=== PATIENT | female | born 1960 | race Caucasian/White ===

== ENCOUNTER 2020-04-11 07:45 | Outpatient (CLI) | payer OTHER, SELFPAY ==
[2020-04-11 08:00] LABS: Hematocrit 42.1 % (35.0-49.0); Hemoglobin 14.5 g/dL (12.0-15.0); Mean Corpuscular HGB Conc 34.4 g/dL (32.0-36.0); Mean Corpuscular Hemoglobin 33.7 pg (27.0-31.0); Mean Corpuscular Volume 97.9 fL (78.0-102.0); Mean Platelet Volume 9.5 fl (9.2-11.8); Platelet Count Result 206 K/mm3 (150-420); Red Cell Distribution Width 11.9 % (11.6-14.4); White Blood Count 7.3 K/mm3 (4.8-10.8)
[2020-04-11 08:18] LABS: Hemoglobin A1C 5.4 % (<5.7)
[2020-04-11 09:10] LABS: Alanine Aminotransferase 42 U/L (14-59); Albumin Level 4.2 g/dL (3.4-5.0); Alkaline Phosphatase 76 U/L (46-116); Anion Gap 10 mmol/L (8-16); Aspartate Amino Transferase 26 U/L (15-37); Bilirubin,Total 0.4 mg/dL (0.00-1.00); Blood Urea Nitrogen 9 mg/dL (7-18); Calcium 9.3 mg/dL (8.5-10.1); Carbon Dioxide 27 mmol/L (21-32); Chloride 97 mmol/L (98-108); Cholesterol 208 mg/dL (0-200); Estimated Glomerular Filt Rate > 60; Free T4 Free Thyroxine 0.89 ng/dL (0.76-1.46); Glucose 109 mg/dL (70-99); HDL Direct 53 mg/dL (40-60); LDL Cholesterol Calculated 130 mg/dL (<130); Osmolality Calculated 277 mOsm/kg (285-295); Potassium 4.7 mmol/L (3.5-5.1); Sodium 134 mmol/L (136-145); Thyroid Stimulating Hormone 9.49 uIU/mL (0.36-3.74); Total Protein 7.7 g/dL (6.4-8.2); Triglycerides 124 mg/dL (0-150)
== END 2020-04-11 07:46 | disposition home or self-care (01) ==
PROVIDERS: PCP Physician Assistant; Visit Provider Physician Assistant
DX: E78.2 Mixed hyperlipidemia (principal)
CPT/HCPCS: 36415; 80053; 80061; 83036; 84439; 84443; 85027

== ENCOUNTER 2020-05-08 09:59 | Outpatient (CLI) | payer OTHER, SELFPAY | END 2020-05-08 10:00 | disposition home or self-care (01) | PROVIDERS: PCP Physician Assistant; Visit Provider Specialist | DX: L81.4 Other melanin hyperpigmentation (principal) | CPT/HCPCS: 88305 ==

== ENCOUNTER 2021-05-07 09:32 | Outpatient (CLI) | payer OTHER, SELFPAY | END 2021-05-07 09:33 | disposition home or self-care (01) | LOC: CHSOUTPT 09:36 | PROVIDERS: PCP Physician Assistant; Visit Provider Specialist | DX: L57.0 Actinic keratosis (principal) | CPT/HCPCS: 88305 ==

== ENCOUNTER 2024-09-01 11:42 | Emergency (ER) | payer OTHER, SELFPAY ==
--- NOTE | ~2024-09-01 | XR_ITS ---
EXAMINATION: XR chest 1V portable DATE: 09/01/2024 12:19 INDICATION: Cough and congestion. TECHNIQUE: A single frontal view of the chest was obtained. COMPARISON: None. FINDINGS: There is no pneumonia, pleural effusion, or pneumothorax. The heart size is normal. IMPRESSION: 1. No acute cardiopulmonary disease. Reviewed, dictated and finalized at location B.
[2024-09-01 11:44] VITALS: BP 160/87; PULSE 93; RESP 18; TEMP 35.7; O2SAT 96
[2024-09-01 11:45] VITALS: O2SAT 99
--- NOTE | 2024-09-01 11:52 | PC.NURSE ---
covid swab sent to lab
[2024-09-01 12:14] LABS: Basophils Absolute Auto 0.03 K/mm3 (0.00-0.10); Basophils Percent Auto 0.5 % (0.0-1.0); Eosinophils Absolute Auto 0.08 K/mm3 (0.02-0.50); Eosinophils Percent Auto 1.4 % (1.0-6.0); Hematocrit 39.6 % (35.0-49.0); Hemoglobin 13.6 g/dL (12.0-15.0); Immature Granulocyte Absolute 0.02 K/mm3 (0.00-0.00); Immature Granulocyte Percent A 0.4 % (0.0-0.0); Immature Platelet Fraction Pct 2.3 % (1.0-7.0); Lymphocytes Absolute Auto 0.89 K/mm3 (1.10-4.50); Lymphocytes Percent Auto 16.1 % (18.0-42.0); Mean Corpuscular HGB Conc 34.3 g/dL (32-36); Mean Corpuscular Hemoglobin 33.3 pg (27.0-31.0); Mean Corpuscular Volume 96.8 fL (78.0-102.0); Mean Platelet Volume 9.2 fl (9.2-11.8); Monocytes Absolute Auto 0.74 K/mm3 (0.10-0.90); Monocytes Percent Auto 13.4 % (2.0-11.0); Neutrophils Absolute Auto 3.78 K/mm3 (1.70-7.20); Neutrophils Percent Auto 68.2 % (50.0-70.0); Platelet Count Result 148 K/mm3 (150-420); Red Blood Count 4.09 M/mm3 (4.20-5.40); Red Cell Distribution Width 12.7 % (11.6-14.4); White Blood Count 5.5 K/mm3 (4.8-10.8)
[2024-09-01 12:17] LABS: Strep Group A RT-PCR DETECTED (Negative)
[2024-09-01 12:23] VITALS: PULSE 83; RESP 16; O2SAT 93
[2024-09-01] MEDS: IPRATROPIUM 0.5 MG/ALBUTEROL SULFATE 2.5 MG AMPUL.NEB 3 ML INHALATION (12:23)
--- NOTE | 2024-09-01 12:26 | ED_ITS ---
HPI - URI/Sore Throat General Chief Complaint: Upper Respiratory Infection Stated Complaint: sore throat Time Seen by Provider: 09/01/24 11:43 Source: patient Mode of arrival: ambulatory Limitations: no limitations History of Present Illness HPI Narrative: this is a 64-year-old female presents with sore throat with nasal congestion coarse breath sounds with no shortness of breath no audible wheezing no fever chills no chest pain no abdominal pain no nausea vomiting. MD elicited complaint: cough, sore throat, rhinorrhea and nasal congestion Onset (ago): day(s) Consistency: constant Severity: mild Related Data Allergies Allergy/AdvReac Type Severity Reaction Status Date / Time No Known Allergies Allergy Verified 09/01/24 12:28 Review of Systems 2 Review of Systems: All systems reviewed & are unremarkable except as noted in HPI and below PMFSH Past Medical History Medical History Patient denies medical problems Exam 2 Const: General: healthy appearing Nutritional Appearance: well nourished Orientation/consciousness: patient oriented x3 Limitations: no limitations HENMT: Head: normal to inspection Other: tonsils erythematous and enlarged Eyes: Conjunctivae: conjunctivae normal Neck: Neck: normal visual inspection Chest: Chest palpation & inspection: normal inspection of the chest Resp: Effort & Inspection: normal respiratory effort Auscultation: rhonchi Cardio: Rate: regular rate Rhythm: regular rhythm GI: GI Palp: Yes Soft to palpation Auscultation: normal bowel sounds : General: Yes bladder normal to palpation Skin: General skin exam: normal color Course Course Emergency Course: patient had a breathing treatment had COVID RSV influenza which were negative, positive for strep and will send antibiotics the patient's local pharmacy blood work was unremarkable chest x-ray unremarkable. Vital Signs Vital signs: Vital Signs Temperature 35.7 C L 09/01/24 11:44 Pulse Rate 93 09/01/24 11:44 Respiratory Rate 18 09/01/24 11:44 Blood Pressure 160/87 H 09/01/24 11:44 Pulse Oximetry 96 09/01/24 11:44 Oxygen Delivery Room Air 09/01/24 11:44 Temperature 35.7 C L 09/01/24 11:44 Pulse Rate 93 09/01/24 11:44 Respiratory Rate 18 09/01/24 11:44 Blood Pressure 160/87 H 09/01/24 11:44 Pulse Oximetry 96 09/01/24 11:44 Oxygen Delivery Room Air 09/01/24 11:44 MDM - URI/Sore Throat Lab Data 09/01/24 12:08 09/01/24 12:08 Labs: Lab Results 09/01/24 09/01/24 Range/Units 11:50 12:08 WBC 5.5 (4.8-10.8) K/mm3 RBC 4.09 L (4.20-5.40) M/mm3 Hgb 13.6 (12.0-15.0) g/dL Hct 39.6 (35.0-49.0) % MCV 96.8 (78.0-102.0) fL MCH 33.3 H (27.0-31.0) pg MCHC 34.3 (32-36) g/dL RDW 12.7 (11.6-14.4) % Plt Count 148 L (150-420) K/mm3 MPV 9.2 (9.2-11.8) fl Immature Gran % (Auto) 0.4 H (0.0-0.0) % Neut % (Auto) 68.2 (50.0-70.0) % Lymph % (Auto) 16.1 L (18.0-42.0) % Hettinger % (Auto) 13.4 H (2.0-11.0) % Eos % (Auto) 1.4 (1.0-6.0) % Baso % (Auto) 0.5 (0.0-1.0) % Lymph # (Auto) 0.89 L (1.10-4.50) K/mm3 Hettinger # (Auto) 0.74 (0.10-0.90) K/mm3 Eos # (Auto) 0.08 (0.02-0.50) K/mm3 Baso # (Auto) 0.03 (0.00-0.10) K/mm3 Abs Immat Gran (auto) 0.02 H (0.00-0.00) K/mm3 Absolute Neuts (auto) 3.78 (1.70-7.20) K/mm3 Absolute Nucleated RBC 0.00 (0.00-0.00) K/mm3 Nucleated RBC % 0.0 (0-0.0) % % Immature Plt Fraction 2.3 (1.0-7.0) % Sodium Pending Potassium Pending Chloride Pending Carbon Dioxide Pending Anion Gap Pending BUN Pending Creatinine Pending Estim Creat Clear Calc Pending Estimated GFR Pending Glucose Pending Calculated Osmolality Pending Calcium Pending Total Bilirubin Pending AST Pending ALT Pending Alkaline Phosphatase Pending Total Protein Pending Albumin Pending Influenza A (RT-PCR) Pending Influenza B (RT-PCR) Pending RSV (RT-PCR) Pending SARS-CoV-2 RNA (RT-PCR) Pending Group A Strep (PCR) Detected A (Negative) Critical Care Time Critical Care Time Critical Care Time: No Discharge Plan Discharge Clinical Impression: Strep throat Patient Disposition: Home, Self-Care Condition: Stable Instructions: Antibiotic Form, Strep Throat (ED) Additional Instructions: advised patient to take medication as prescribed can take Tylenol or Motrin as needed and follow with family if symptoms persist or worsen. Patient Language: [place] Islander Prescriptions: New amoxicillin-pot clavulanate [Augmentin] 500-125 mg tablet 1 tablet PO TID Qty: 30 0RF Follow-up/Referrals: Randy,JUAN Smart [Primary Care Provider] - Time of Disposition: 12:31
[2024-09-01 12:27] VITALS: PULSE 86; RESP 16; O2SAT 95
[2024-09-01 12:28] LABS: Alanine Aminotransferase 24 U/L (14-59); Albumin Level 3.7 g/dL (3.4-5.0); Alkaline Phosphatase 61 U/L (46-116); Anion Gap 6 mmol/L (4-12); Aspartate Amino Transferase 25 U/L (15-37); Bilirubin,Total 0.5 mg/dL (0.00-1.00); Blood Urea Nitrogen 7 mg/dL (7-18); Calcium 9.2 mg/dL (8.5-10.1); Carbon Dioxide 29 mmol/L (21-32); Chloride 98 mmol/L (98-108); Estimated CRCL calculation 89 ml/min; Estimated Glomerular Filt Rate > 60; Glucose 151 mg/dL (70-99); Osmolality Calculated 277 mOsm/kg (285-295); Potassium 4.5 mmol/L (3.5-5.1); Sodium 133 mmol/L (136-145); Total Protein 7.8 g/dL (6.4-8.2)
[2024-09-01 12:30] LABS: Influenza A QL RT-PCR Positive (Negative); Influenza B QL RT-PCR Negative (Negative); RSV RNA, RT-PCR Negative (Negative); SARS-CoV-2 RNA PCR Negative (Negative)
--- OUTSIDE RECORDS SUMMARY | 2024-09-01 13:32 | XMS_ITS | Encounter Summary ---
Author Organization [facility] Address [address] [place] [address] Phone Care Team Providers Care Environmental Health Manager Name Role Phone Shravan Padilla Primary Care Provider Heidy Brandon MD Unavailable [phone] Reason for Visit * Reason Comments Medication Refill Encounter Details Date Type Department Care Team (Late st Contact Info) Description 01/31/2022 Refill [facility] - Gastroenterology [facility] [address] [place] [address] Alyssa Ulloa [facility] [address] [place] [address] Medication Refill Social History Tobacco Use Types Packs/Day Years Used Date Smoking Tobacco: Former Smokeless Tobacco: Never Alcohol Use Standard Drinks/Week Comments Yes 0 (1 standard drink = 0.6 oz pur e alcohol) daily for the past year; Beer Sexually Active Control Partners Comments Not Currently Comments No Sex and Gender Information Value Date Recorded Sex Assigned at Not on file Legal Sex Female 12:04 AM CDT Gender Identity Not on file Sexual Orientation Not on file documented as of this encounter Miscellaneous Notes * Telephone Encounter - Emily Koo RN - 02/03/2022 10:34 AM CDT Medication refilled and signed per [facility] chronic medication standing order for pediatric and adult patients. documented in this encounter Plan of Treatment Not on file documented as of this encounter Visit Diagnoses Not on filedocumented in this encounter Additional Health Concerns Infection Onset Date Last Indicated Resolved Time COVID - 19 02/19/2024 02/19/2024 02/19/2024 11:4 2 AM CDT documented as of this encounter Care Teams Environmental Health Manager Relationship Specialty Start Date End Date Shravan Padilla PAC [address] [place] [address] PCP - General Physician Banquet Line Cook 10/30/17 Heidy Brandon MD [address] [place] [address] Consulting Physician Gastroenterology 05/22/22 documented as of this encounter
--- OUTSIDE RECORDS SUMMARY | 2024-09-01 13:33 | XMS_ITS | Encounter Summary ---
Author Organization [facility] Address [address] [place] [address] Phone Care Team Providers Care Cut And Cover Line Worker Name Role Phone Shravan Padilla Primary Care Provider [phone] Heidy Brandon MD Unavailable [phone] Reason for Referral * Radiology Services (Routine) - Closed Specialty Diagnoses / Procedures Referred By Rea t Referred To Contact Radiology Diagnoses Encounter for screening mammogram for breast cancer Procedures ROBERT SCREENING BILATERAL DIGITAL W CAD W RADHA Shravan Padilla PAC [address] [place] [address] Phone: tel: fax: Referral ID Status Reason Start Date Expiration Date Visits Re quested Visits Authorized [id number] Closed 07/20/2024 1 1 HAULER Encounter Details Date Type Department Care Team (Late st Contact Info) Description 07/20/[address] [facility] Central Scheduling [address] [place] [id number] Shravan Padilla PAC [address] [place] [address] Encounter for screening mammogram for breast cancer (Primary Dx) Social History Tobacco Use Types Packs/Day Years [...] on file documented as of this encounter Plan of Treatment Not on file documented as of this encounter Results * ROBERT SCREENING BILATERAL DIGITAL W CAD W RADHA (08/11/2024 9:44 AM MILK HAULER) Anatomical Region Laterality Modality breast Bilateral Mammography 08/11/2024 9:31 AM MILK HAULER Narrative 08/12/2024 9:11 AM MILK HAULER - ROBERT SCREENING BILATERAL DIGITAL W CAD W RADHA BILATERAL DIGITAL SCREENING MAMMOGRAM 3D/2D WITH CAD WITH MEDIOLATERAL OBLIQUE CRANIOCAUDAL: 08/11/2024 The study was acquired using digital technology and interpreted from soft copy. Current study was also evaluated with ICAD version 7.2. 2D digital mammographic views, as well as 3D digital tomosynthesis were performed in the CC and MLO projections. CLINICAL: Routine screening. Patient has no complaints. Personal history of thyroid cancer. Maternal grandmother had breast cancer. COMPARISONS: Comparison is made to exams dated: 12/28/2020, 07/23/2022, and 08/03/2023 [facility]. BREAST TISSUE:There are scattered areas of fibroglandular density. FINDINGS: There are benign calcifications in the right breast. No significant masses, calcifications, or other findings are seen in either breast. There has been no significant interval change. IMPRESSION: BENIGN There is no mammographic evidence of malignancy. A 1 year screening mammogram is recommended. A letter will be sent to the patient with these results. The patient will be entered into a reminder system with a target due date of 1 year for her next screening exam. Electronically signed by: Reji mike/jacki:08/11/2024 15:56:02 Escalator Mechanic(s): RT Maye(R)(M), [facility] letter sent: Normal Exam Reading location: [facility] Mammogram BI-RADS: Category 2: Benign Procedure Note Reji Aguilar MD - 08/12/2024 - ROBERT SCREENING BILATERAL DIGITAL W CAD W RADHA BILATERAL DIGITAL SCREENING MAMMOGRAM 3D/2D WITH CAD WITH MEDIOLATERAL OBLIQUE CRANIOCAUDAL: 08/11/2024 The study was acquired using digital technology and interpreted from soft copy. Current study was also evaluated with ICAD version 7.2. 2D digital mammographic views, as well as 3D digital tomosynthesis were performed in the CC and MLO projections. CLINICAL: Routine screening. Patient has no complaints. Personal history of thyroid cancer. Maternal grandmother had breast cancer. COMPARISONS: Comparison is made to exams dated: 12/28/2020, 07/23/2022, and [facility]20[facility]. BREAST TISSUE:There are scattered areas of fibroglandular density. FINDINGS: There are benign calcifications in the right breast. No significant masses, calcifications, or other findings are seen in either breast. There has been no significant interval change. IMPRESSION: BENIGN There is no mammographic evidence of malignancy. A 1 year screening mammogram is recommended. A letter will be sent to the patient with these results. The patient will be entered into a reminder system with a target due date of 1 year for her next screening exam. Electronically signed by: Reji mike/jacki:08/11/2024 15:56:02 Escalator Mechanic(s): RT Maye(R)(M), [facility] letter sent: Normal Exam Reading location: [facility] Mammogram BI-RADS: Category 2: Benign us Shravan [facility]LEY IMG MAMMO ORDERABLES Final Re sult documented in this encounter Visit Diagnoses Diagnosis Encounter for screening mammogram for breast cancer- Primary Encounter for screening mammogram for breast cancer documented in this encounter Care Teams Cut And Cover Line Worker Relationship Specialty Start Date End Date Shravan Padilla PAC [address] [place] [address] PCP - General Physician Biometrician 10/30/17 Heidy Brandon MD [address] [place] [address] Consulting Physician Gastroenterology 05/22/22 documented as of this encounter
--- OUTSIDE RECORDS SUMMARY | 2024-09-01 13:33 | XMS_ITS | Clinical Summary ---
Author Organization [facility] Address [address] [facility] [address] [place] [address] Phone Care Team Providers Care Adobe Block Maker Name Role Phone Shravan Padilla Primary Care Provider [phone] Heidy Brandon MD Unavailable [phone] Allergies No known active allergies Medications ALPRAZolam (XANAX) 1 MG Tablet Take by mouth. 10/27/2017 Active hydroCHLOROthiaz gallo 25 MG Tablet TAKE 1 TABLET EVERY DAY 10/09/2017 Active levothyroxine (SYNTHROID) 200 MCG Tablet TAKE 1 TABLET EVERY DAY 12/30/2016 Active losartan (COZAAR) 100 MG Tablet TAKE 1 TABLET EVERY DAY 10/09/2017 Active metoprolol tartrate (LOPRESSOR) 25 MG Tablet Take by mouth. 12/21/2017 Active sertraline (ZOLOFT) 100 MG Tablet Take 100 mg by mouth daily. Active levothyroxine (SYNTHROID) 25 MCG Tablet 11/01/2021 Active naltrexone (DEPADE) 50 MG Tablet 11/01/2021 Active folic acid (FOLVITE) 1 MG Tablet TAKE 1 TABLET BY MOUTH DAILY. 30 Tablet 2 02/03/2022 Active Active Problems Problem Noted Date Diagnosed Date Hepatic steatosis 08/20/2021 Alcohol abuse 08/20/2021 Acquired hypothyroidism 08/20/2021 Benign essential HTN 08/20/2021 Encounters Date Type Department Care Team Description 08/11/2024 9:00 AM DELI ASSOCIATE - 08/11/2024 11:59 PM DELI ASSOCIATE [facility] [address] [place] [address] Shravan Padilla, PAC Discharge Disposition: Discharged to home or Selfcare 08/11/2024 Travel 07/20/2024 Transcribe Orders [facility] Central Scheduling [address] [place] [address] Shravan Padilla, PAC Encounter for screening mammogram for breast cancer (Primary Dx) from Last 3 Months Immunizations Immunization Administration Dates Next Due Influenza Vaccine, Quadrivalent, PF 04/30/2022 Influenza, Injectable, Quadrivalent 06/2020,06/08/2020,2019,2015 Influenza, Seasonal, Injecta ble, Undefined 03/22/2012,04/04/2011 TDAP Vaccine 08/06/2017,03/12/2009 Zoster Vaccine, live 12/17/2016 Family History Medical History Relation Name Comments Heart Disease Father Breast Cancer Maternal Grandmother Relation Name Status Comments Father Maternal Grandmother Social History Tobacco Use Types Packs/Day Years Used Date Smoking Tobacco: Former Smokeless Tobacco: Never Tobacco Cessation:Counseling Given: Not Answered Alcohol Use Standard Drinks/Week Comments Yes 0 (1 standard drink = 0.6 oz pur e alcohol) daily for the past year; Beer Sexually Active Control Partners Comments Not Currently Comments No Sex and Gender Information Value Date Recorded Sex Assigned at Not on file Legal Sex Female 12:04 AM CDT Gender Identity Not on file Sexual Orientation Not on file Last Filed Vital Signs Vital Sign Reading Time Taken Comments Blood Pressure 144/86 02/19/2024 11:09 AM CDT Pulse 104 02/19/2024 11:09 AM CDT Temperature 36.3 C (97.3 F) 02/19/2024 11:09 AM CDT Respiratory Rate 16 02/19/2024 11:09 AM CDT Oxygen Saturation 94% 02/19/2024 11:09 AM CDT Inhaled Oxygen Concentration - - Weight 102.5 kg (226 lb) 05/22/2022 8:38 AM DELI ASSOCIATE Height 172.7 cm (5' 8 ) 05/22/2022 8:38 AM DELI ASSOCIATE Body Mass Index 34.36 05/22/2022 8:38 AM DELI ASSOCIATE Plan of Treatment Health Maintenance Due Date Last Done Comments Pap Smear 1982 Cervical Cancer Screening (CCS) 1991 HPV/Cotest 1991 Cologuard 2011 Immunochemical Fecal Occult Blood 2011 Zoster Immunization (2 of 3) 02/11/2017 12/17/2016 Influenza Immunization (#1) 02/21/202403/23, 04/30/2022, 05/22/2021, Additional history exists SARS-COV-2 Immunization ( season) 2024 10/23/2021, 11/07/2020, 10/10/2020 Mammogram 08/11/2025 08/11/2024, 07/23, 07/23/2022, Additional history exists Td Immunization Every 10 Years (Adults With 1 Tdap) 08/06/2027 08/06/2017, 03/12/2009 Colonoscopy 11/23/2031 11/22/2021, 09/16/2017 Colorectal Cancer Screening 11/23/2031 Respiratory Syncytial Virus (RSV) Immunization (Adult) (1 - 1-dose 75+ series) 2036 11/22/2021, 09/16/2017 DTaP/Tdap/Td Immunization Discontinued 08/06/2017, Hepatitis C Virus (HCV) Screening Completed 02/23/2018 Pneumococcal Immunization (50+ years) Completed 04/08/2024 Pneumococcal Immunization Combined Discontinued 04/08/2024 Hepatitis B Immunization Aged Out No longer eligible based on patient's age to complete this topic Meningococcal Immunization (ACWY) Aged Out No longer eligible based on patient's age to complete this topic Rotavirus Immunization Aged Out No lo nger eligible based on patient's age to complete this topic Procedures Procedure Name Priority Date/Time Associated Diagnosis Comments ROBERT SCREENING BILATERAL DIGITAL W CAD W RADHA Routine 08/11/2024 9:44 AM DELI ASSOCIATE Encounter for screening mammogram for breast cancer HEPATITIS PANEL ACUTE (AHP) Routine 02/23/2018 10:57 AM CDT Encounter for hepatitis C screening test for low risk patient [facility] COLONOSCOPY Routine 09/16/2017 from Last 3 Months or Most Recently Relevant to Health Maintenance Results * ROBERT SCREENING BILATERAL DIGITAL W CAD W RADHA (08/11/2024 9:44 AM DELI ASSOCIATE) Anatomical Region Laterality Modality breast Bilateral Mammography 08/11/2024 9:31 AM DELI ASSOCIATE Narrative 08/12/2024 9:11 AM DELI ASSOCIATE - ROBERT SCREENING BILATERAL DIGITAL W CAD W RADHA BILATERAL DIGITAL SCREENING MAMMOGRAM 3D/2D WITH CAD WITH MEDIOLATERAL OBLIQUE CRANIOCAUDAL: 08/11/2024 The study was acquired using digital technology and interpreted from soft copy. Current study was also evaluated with 591wed version 7.2. 2D digital mammographic views, as well as 3D digital tomosynthesis were performed in the CC and MLO projections. CLINICAL: Routine screening. Patient has no complaints. Personal history of thyroid cancer. Maternal grandmother had breast cancer. COMPARISONS: Comparison is made to exams dated: 12/28/2020, 07/23/2022, and 08/03/2023 [facility]. BREAST TISSUE:There are scattered areas of fibroglandular [...] exam. Electronically signed by: Reji mike/jacki:08/11/2024 15:56:02 Medical Center Director(s): RT Maye(R)(M), [facility] letter sent: Normal Exam Reading location: [facility] [...] to exams dated: 12/28/2020, 07/23/2022, and 08/03/2023 [facility]. BREAST TISSUE:There are scattered areas [...] exam. Electronically signed by: Reji mike/jacki:08/11/2024 15:56:02 Medical Center Director(s): RT Maye(R)(M), [facility] letter sent: Normal Exam Reading location: [facility] Mammogram BI-RADS: Category 2: Benign us Shravan Padilla [facility] IMG MAMMO ORDERABLES Final Re sult * HEPATITIS PANEL ACUTE (AHP) (02/23/2018 10:57 AM CDT) HEPATITIS A IGM ANTIBODY NON DETECTED NON DETECTED 02/24/2018 1:19 AM CDT [facility] Comment: IGM Antibodies to HAV not detected. Does not exclude early acute or recovered HAV infection. HEP B CORE AB (IGM) NON DETECTED NON DETECTED 02/24/2018 1:19 AM CDT [facility] Comment: IGM anti-HBC not detected. Does not exclude the possibility of exposure to or infection with HBV. HEPATITIS B SURFACE ANTIGEN NON DETECTED NON DETECTED 02/24/2018 1:19 AM CDT [facility] Comment: A nonreactive test result does not exclude the possibility of exposure to or infection with Hepatitis B virus. A nonreactive test result in individuals with prior exposure to hepatitis B may be due to antigen levels below the detection limit of this assay or lack of antigen reactivity to the antibodies in this assay. hepatitis C antibody 0.11 <1 S/CO 02/24/2018 1:19 AM CDT [facility] Comment: Signal/Cutoff ratio < 0.79 is Nondetected Signal/Cutoff ratio 0.80-0.99 is Grayzone Signal/Cutoff ratio > 0.99 is Detected Supplemental assays are recommended if signal/cutoff ratio is >/=1.00. Signal/cutoff ratio result >/= 5.00 is 97% predictive of positivity for recombinant immunoblot assay (RIBA) and will be reported to the [place] Department of Public Health as required. Blood specimen (specimen) Venipuncture / Unknown 02/23/2018 10:57 AM CDT 02/23/2018 11:42 AM CDT us Paula Hernandez LEAD SYSTEMS ARCHITECT, PULP SCREEN OPERATOR HEMATOLOGY ORDERA BLES Final Result [facility] [address] [place] [address], [place] * COLONOSCOPY (09/16/2017) us Juliano Minor MD PROCEDURE/MINOR SURGICAL O RDERABLES Final Result from Last 3 Months or Most Recently Relevant to Health Maintenance Insurance MEDICAID [place] Care Teams Adobe Block Maker Relationship Specialty Start Date End Date Shravan Padilla, [facility] [address] [place] [address] PCP - General Physician Territory Account Executive 10/30/17 Heidy Brandon MD [address] [place] [address] Consulting Physician Gastroenterology 05/22/22
--- OUTSIDE RECORDS SUMMARY | 2024-09-01 13:33 | XMS_ITS | Clinical Summary ---
Author Organization [facility] Address [address] [place] [address] Phone Care Team Providers Care Clinical Data Programmer Name Role Phone LENNY AREVALO MD Unavailable [phone] DANIELLA PADILLA PA-C Primary Care Provider [phone] DANIELLA AJ MD Unavailable [phone] Reason for Visit and Chief Complaint gynecologic annual exam - The Chief Complaint is: Annual Problems Includes: Problems addressed during this encounter and other active Problems All Visits Onset Date Resolved Date Provider Condition S tatus FAM HX-DIABETES MELLITUS 10/05/2009 YEMI LAYNE NP-BC Active Last Documented On 10/05/2009 1:58PM ; [facility] Note: paternal grandfathere FAMILY HX-BREAST MALIG 10/05/2009 YEMI LAYNE NP-BC Active Last Documented On 10/05/2009 1:59PM ; [facility] Note: maternal grandmother HYPERTENSION NOS 10/05/2009 YEMI WONGA NS NP-BC Active Last Documented On 0 1:59PM ; [facility] HYPOTHYROIDISM NOS 10/05/2009 YEMI LAYNE N P-BC Active Last Documented On 11/28/2019 9:57AM ; [facility] Note: thyroidectomy - s/p thyroid cancer Plan of Treatment - Follow-up visit 1 year or as needed - Last Documented On 11/28/2019 9:57AM ; [facility] - Clinical summary provided to patient - Last Documented On 11/28/2019 9:57AM ; [facility] Per new ASCCP guidelines, pap was deferred today. This was d/w pt. and pt. is agreeable to this plan. - Last Documented On 11/28/2019 9:57AM ; [facility] Pending Tests Order Diagnosis Results Due Ordering Juan J quesada Radiology @ other - *MAMMOGRAPHY SCREENING MAMMOGRAM Encntr screen mammogram for malignant neoplasm of breast 12/12/19 YEMI LAYNE [facility] Last Documented On 1 9:45AM ; [facility] Instructions to patient Instructions for patient : B reast Self Exam discussed Last Documented On 0 9:33AM ; [facility] Lose weight Last Documented On 0 9:34AM ; [facility] Education and Decision Aids were provided during visit for: Patient Education: Daily morris cium and vitamin D Last Documented On 0 9:33AM ; [facility] Patient Education: weight be aring exercise Last Documented On 0 9:33AM ; [facility] Assessments Includes: Assessments from this encounter Findings - NORMAL FEMALE EXAM [Z01.419 - Encounter for gynecological examination (general) (routine) without abnormal findings] - Last Documented On 11/28/2019 9:57AM ; [facility] - Screening Malig. Neoplasm Rectum [Z12.12 - Encounter for screening for malignant neoplasm of rectum] - Last Documented On 11/28/2019 9:57AM ; [facility] Instructions Includes: Instructions from this encounter Instructions to patient Instructions for patient : B reast Self Exam discussed Last Documented On 0 9:33AM ; [facility] Lose weight Last Documented On 0 9:34AM ; [facility] Education and Decision Aids were provided during visit for: Patient Education: Daily morris cium and vitamin D Last Documented On 0 9:33AM ; [facility] Patient Education: weight be aring exercise Last Documented On 0 9:33AM ; [facility] Medical Equipment - Implanted Devices Includes: Current Devices No Medical Equipment Recorded Medications Includes: Medications discussed during this encounter and other current Medications Current Medications (continue as prescribed) Zoloft 100MG Oral Tablet 11/24/2018 Provider: Diagnosis: Last Documented On 11/24/2018 3:11PM By DAVY MENG ; [facility] hydroCHLOROthiazide 12.5 MG CAPS 07/06/2014 Provider : Diagnosis: Last Documented On 07/06/2014 1:36PM By DAVY MENG ; [facility] Xanax 0.25 MG OR TABS 07/06/2014 Provider: Diagnosis: Last Documented On 07/06/2014 1:37PM By DAVY MENG ; [facility] Metoprolol Tartrate 25 MG OR TABS 10/27/2013 Provide r: Diagnosis: Last Documented On 10/27/2013 2:13PM By DAVY MENG ; [facility] Synthroid 175 MCG OR TABS 10/05/2009 Provider: Diagnosis: Last Documented On 10/05/2009 1:56PM By DAVY MENG ; [facility] Medications Administered Includes: Administered Medications from this encounter No Administered Medications Recorded Vital Signs Includes: Vital Signs from this encounter Vital Name 11/28/2019 09:48A 11/28/2019 09: 44A Blood Pressure Sitting L 110/70 BP Cuff Size Large Temp-Oral (F) 98 Height (in) 68 Weight (lb) 225 Body Mass Index (kg/m2) 34.2 Body Surface Area (m2) 2.1 Last Documented: On 11/28/2019 9:49AM ; [facility] On 11/28/2019 9:46AM ; [facility] Results Includes: Results discussed during this encounter THINPREP TIS AND HPV mRNA E6/E7 [employer] Ordered by YEMI WEBB on 10/2018 Collected: 11/24/2018 Reported: 12/01/19 19 07:43 Last Documented On 9 2:02PM ; [facility] Reviewed by YEMI SUERO on 11/30/2018; All test results are final unless otherwise noted. COMMENT See Note None Last Documented On 9 2:02PM ; [facility] Note: EXPLANATORY NOTE: The Pap is a scr eening test for cervical cancer. It is not a diagnostic test and is subject to false negative and false positive results. It is most reliable when a satisfactory sample, regularly obtained, is submitted with relevant clinical findings and history, and when the Pap result is evaluated along with historic and current clinical information. HPV mRNA E6/E7 Not Detected (Not Detected) N (Normal) Last Documented On 9 2:02PM ; [facility] Note: This test was performed using the APTIMA HPV Assay ([employer]This assay detects E6/E7 viral messenger RNA (mRNA) from 14high-risk HPV types (16,18,31,33,35,39,45,51,52,56,58,59,66,68). The analytical performance characteristics ofthis assay have been determined by [employer]. The modifications have not beencleared or approved by the FDA. This assay hasbeen validated pursuant to the CLIA regulationsand is used for clinical purposes. SOURCE: Cervix, Endocervix N (Normal) Last Documented On 9 2:02PM ; [facility] CLINICAL INFORMATION: Routine exam N (Normal) Last Documented On 9 2:02PM ; [facility] LMP: PM N (Normal) Last Documented On 9 2:02PM ; [facility] PREV. PAP: 2018 N (Normal) Last Documented On 9 2:02PM ; [facility] PREV. BX: NONE N (Normal) Last Documented On 9 2:02PM ; [facility] STATEMENT OF ADEQUACY: Satisfactory for evaluation. Endocervical/transformation zone component present. N (Normal) Last Documented On 9 2:02PM ; [facility] INTERPRETATION/RESULT: Negative for intraepithelial lesion or malignancy. N (Normal) Last Documented On 9 2:02PM ; [facility] COMMENT: This Pap test has been evaluated with computer assisted technology. N (Normal) Last Documented On 9 2:02PM ; [facility] FUNERAL DIRECTOR: SHARRI MÉNDEZ(ASCP) CT screening location: [place] [address] [place] [id number] N (Normal) Last Documented On 9 2:02PM ; [facility] History of Present Illness Includes: History of Present Illness from this encounter POLO FUNK is a 59 year old female. 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 11/28/2019 Last Documented On 0 9:57AM ; [facility] Smoking status : Former smoker 0 Last Documented On 0 9:57AM ; [facility] Pentecostal: Temple 11/10/2016 Last Documented On 0 9:43AM ; [facility] Buddhism affiliation 11/10/2016 Last Documented On 0 9:43AM ; [facility] Procedures and Surgical History Includes: Procedures from this encounter Procedures Code Diagnosis Performing Provider Service L ocation Service Date low fat diet Last Documented On 0 9:34AM ; [facility] fecal occult blood test was negative 38977 Last Documented On 0 9:33AM ; [facility] Surgical History Last Updated History of tubal ligation 11/10/2016 Last Documented On 0 9:43AM ; [facility] Surgical / procedural history thyroid-re moved whole thyroid 11/10/2016 Last Documented On 0 9:43AM ; [facility] Medical History Includes: Medical History addressed during this encounter Description Last Updated No recent change in medical history 01/2020 Last Documented On 0 9:57AM ; [facility] Sexually active not currently S.A 2019 Last Documented On 0 9:57AM ; [facility] History of complete colonoscopy 8 11/28/2019 Last Documented On 0 9:57AM ; [facility] History of Pap smear done 11/24/201801/2020 Last Documented On 0 9:57AM ; [facility] History of screening mammogram was perfo rmed 10/28/2018 11/28/2019 Last Documented On 0 9:57AM ; [facility] Result: normal 11/28/2019 Last Documented On 0 9:57AM ; [facility] Result: normal 11/28/2019 Last Documented On 0 9:57AM ; [facility] section 11/19/2017 Last Documented On 0 9:43AM ; [facility] History of thyroid disorder throid remov ed 11/19/2017 Last Documented On 0 9:43AM ; [facility] 3 11/10/2016 Last Documented On 0 9:43AM ; [facility] History of benign essential hypertension 11/10/2016 Last Documented On 0 9:43AM ; [facility] LMP: 2013 11/10/2016 Last Documented On 0 9:43AM ; [facility] Para 3 11/10/2016 Last Documented On 0 9:43AM ; [facility] Previous hospitalizations TH REE C-SECTIONS,THYROID REMOVED IN 1994,TUBAL LIGATION [place] 199811/10/2016 Last Documented On 0 9:43AM ; [facility] Family History Includes: Family History addressed during this encounter Description Last Updated Family history unchanged 11/28/2019 Last Documented On 0 9:57AM ; [facility] Maternal grandmother's histo ry of malignant female breast neoplasm maternal grandma 11/28/2019 Last Documented On 0 9:57AM ; [facility] Paternal grandfather's history of diabet es mellitus paternal grandpa 11/28/2019 Last Documented On 0 9:57AM ; [facility] Paternal history of family history of he art disease father 11/28/2019 Last Documented On 0 9:57AM ; [facility] father-throat ca 11/24/2018 Last Documented On 0 9:43AM ; [facility] Review of Systems Includes: Review of Systems from this encounter Gastrointestinal: No pelvic pain. Genitourinary: No postmenopausal bleeding. No vaginal discharge. Mental Status Includes: Mental Status from this encounter No Mental Status Recorded Functional Status Includes: Functional Status from this encounter No Functional Status Recorded Physical Exam Includes: Physical Exam from this encounter Allergies Includes: Active Allergies No Known Allergies Encounters Encounter Provider Location Date Check-In Time Check-Out Time Diagnosis WELL WOMAN EXAM YEMI LUCAS-[facility] 11/28/19 20 9:31AM 10:00AM Screening Malig. Neoplasm Rectum,Normal Female Exam Insurance Includes: Active Insurance Policies Plan Name Member ID Group # Subscriber Relationship Effect bonnie Dates 1 - [facility] [id number] MICHAEL FUNK Self Clinical Notes Includes: Clinical Notes from this encounter No Clinical Notes Recorded
--- OUTSIDE RECORDS SUMMARY | 2024-09-01 13:33 | XMS_ITS | Encounter Summary ---
Author Organization [facility] Address [address] [place] [address] Phone Care Team Providers Care Sealer Dry Cell Name Role Phone Shravan Hernandez MD Primary Care Provider [phone] Shravan Padilla Primary Care Provider [phone] Rafat Carmichael MD Unavailable [phone] Encounter Details Date Type Department Care Team (Late st Contact Info) Description 09/07/2017 Orders Only [facility] ProviderBon [facility] [place] [address] Social History Tobacco Use Types Packs/Day Years Used Date Smoking Tobacco: Former Smokeless Tobacco: Never Comments:Smoking History Pac ks/day: 0.4 Packs Alcohol Use Standard Drinks/Week Comments Yes 0 (1 standard drink = 0.6 oz pur e alcohol) Comments Unknown Sex and Gender Information Value Date Recorded Sex Assigned at Not on file Legal Sex Female 2:01 PM LATHE [employer] Gender Identity Not on file Sexual Orientation Not on file documented as of this encounter Plan of Treatment Not on file documented as of this encounter Procedures Procedure Name Priority Date/Time Associated Diagnosis Comments DISCHARGE LABORATORY CUMULATIVE REPORT 09/07/2017 12:00 AM CDT documented in this encounter Results * DISCHARGE LABORATORY CUMULATIVE REPORT (09/07/2017 12:00 AM CDT) Narrative 09/07/2017 12:00 AM CDT Ordered by an unspecified provider. Historical Provider LAB BLOOD ORDERABLES Mesha l Result documented in this encounter Visit Diagnoses Not on filedocumented in this encounter Additional Health Concerns Infection Onset Date Last Indicated Resolved Time COVID: Suspected 02/15/2022 02/15/2022 02/15/2022 11:09 AM CDT documented as of this encounter Care Teams Sealer Dry Cell Relationship Specialty Start Date End Date Shravan Hernandez MD PCP - General 12/11/14 10/20/21 Shravan Padilla PA [address] [place] [address] PCP - General 10/21/21 Rafat Carmichael MD [address] [address] Referring Physician Dermatology 04/19/24 documented as of this encounter
--- OUTSIDE RECORDS SUMMARY | 2024-09-01 13:33 | XMS_ITS | Data Portability ---
Author Organization [facility] [place] 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 Plan of Treatment Reminders Order Date Submit Date Provider Last Modified By Organization Details Last Modified Time Details Appointments ANY 15 2024 09:30A M Daniella Padilla PA-C Not available Not available Not available Lab CBC 2024 025 [facility], [address] [facility] [address], [address], 06/25/2024 09:13:04 CMP, serum or plasma 2024 025 [facility], [address] [facility] 2, [place], [address], 06/25/2024 09:13:02 lipid panel, serum 2024 025 [facility], [address] [place] [address] 2, [place], [address], 06/25/2024 09:13:00 TSH + free T4, serum 2024 025 [facility], [address] [facility] 2, [place], [address], 06/25/2024 09:12:59 HbA1c (hemoglob in A1c), blood 2024 025 [facility] In-Office Order, Internal Use Only DO Not Attach Compendium DO Not Attach Compendium, Do Not Delete/merge, [id number] 06/24/2024 12:57:54 TSH + free T4, serum 2023 024 [facility], [address] [place] [address] 2, [place], [address], 12/18/2023 06:19:43 CBC 2023 024 [facility], [address] [place] [address] 2, [place], [address], 12/18/2023 06:19:46 CMP, serum or plasma 2023 024 [facility], [address] [place] [address], [facility] 2, [place], [address], 12/18/2023 06:19:44 lipid panel, serum 2023 024 [facility], [address] [place] [address] 2, [place], [address], 12/18/2023 06:19:44 PPD (purified protein derivativ e), skin test 2022 023 [facility] In-Office Order, Internal Use Only DO Not Attach Compendium DO Not Attach Compendium, Do Not Delete/merge, [id number] 03/11/2023 16:28:33 Referral None recorded. Procedures None recorded. Surgeries None recorded. Imaging None recorded. Medication Orders alprazola m 1 mg tablet 2023 024 [id number], [address], [place], [place], [id number], 12/15/2023 12:19:46 Patient TargetsNo targets recorded. Patient Instructions Encounter Date Encounter Id Patient Instructions Last Modified By Organization Details Last Modified Time 03/09/2023 [id number] A healthy lifestyle: care instructions jnanney Not available 03/09/2023 11:32:24 04/17/2023 [id number] influenza (flu) vaccine: care instructions jnanney Not available 04/17/2023 12:10:18 12/15/2023 [id number] A healthy lifestyle: care instructions jnanney Not available 12/15/2023 12:19:39 A healthy lifestyle: care instructions jnanney Not available 12/15/2023 12:22:08 learning about high blood pressure jnanney Not available 12/15/2023 12:22:08 06/24/2024 [id number] A healthy lifestyle: care instructions jnanney Not available 06/24/2024 12:39:09 learning about high blood pressure jnanney Not available 06/24/2024 12:39:09 Reason for Referral None Reported. Results Created Date Observation Date Name Description Value Unit Range Abnormal Flag Note LastModifiedBy Organization Detail LastModifiedTime 03/11/2003/11/2023 PPD (emmett fied prote in deriv ative ), skin test Result Negati ve Not Available In-Office Order Internal Use Only DO Not Attach Compendium DO Not Attach Compendium, Do Not Delete/merge, [id number] 03/09/2023 11:32:02 12/15/1912/18/2023 TSH+F REE T4 TSH 5.910 uIU/m L 0.450- 4.500 above high normal Not Available [id number] [place], [address], 12/18/2023 06:19:43 12/15/1912/18/2023 TSH+F REE T4 T4,free(dire ct) 1.22 NG/dL 0.82-1 .77 Not Available [id number] [place], [address], 12/18/2023 06:19:43 12/15/19 24 12/18/2023 LIPID PANEL cholesterol, total 196 mg/dL 100-19 9 Not Available [facility] [address] [place], [address], 12/18/2023 06:19:43 12/15/19 24 12/18/2023 LIPID PANEL triglyceride s 175 mg/dL 0-149 above high normal Not Available [facility] [address] [place], [address], 12/18/2023 06:19:43 12/15/19 24 12/18/2023 LIPID PANEL HDL cholesterol 48 mg/dL >39 Not Available [address], [address], 12/18/2023 06:19:43 12/15/19 24 12/18/2023 LIPID PANEL VLDL cholesterol morris 31 mg/dL 5-40 Not Available [address], [address], 12/18/2023 06:19:43 12/15/19 24 12/18/2023 LIPID PANEL LDL chol calc (nih) 117 mg/dL 0-99 above high normal Not Available [address], [address], 12/18/2023 06:19:43 12/15/19 24 12/18/2023 COMP. METAB OLIC PANEL (14) glucose 109 mg/dL 70-99 above high normal Not Available [address], [address], 12/18/2023 06:19:44 12/15/19 24 12/18/2023 COMP. METAB OLIC PANEL (14) BUN 11 mg/dL 8-27 Not Available [address], [address], 12/18/2023 06:19:44 12/15/19 24 12/18/2023 COMP. METAB OLIC PANEL (14) creatinine 0.76 mg/dL 0.57-1 .00 Not Available [address], [address], 12/18/2023 06:19:44 12/15/19 24 12/18/2023 COMP. METAB OLIC PANEL (14) eGFR 89 mL/mi n/1.7 3 >59 Not Available [address], [address], 12/18/2023 06:19:44 12/15/19 24 12/18/2023 COMP. METAB OLIC PANEL (14) BUN/creatini ne ratio 14 12-28 Not Available [address], [address], 12/18/2023 06:19:44 12/15/19 24 12/18/2023 COMP. METAB OLIC PANEL (14) sodium 134 mmol/ L 134-14 4 Not Available [address], [address], 12/18/2023 06:19:44 12/15/19 24 12/18/2023 COMP. METAB OLIC PANEL (14) potassium 5.1 mmol/ L 3.5-5. 2 Not Available [address], [address], 12/18/2023 06:19:44 12/15/19 24 12/18/2023 COMP. METAB OLIC PANEL (14) chloride 94 mmol/ L 96-106 below low normal Not Available [address], [address], 12/18/2023 06:19:44 12/15/19 24 12/18/2023 COMP. METAB OLIC PANEL (14) carbon dioxide, total 23 mmol/ L 20-29 Not Available [address], [address], 12/18/2023 06:19:44 12/15/19 24 12/18/2023 COMP. METAB OLIC PANEL (14) calcium 9.9 mg/dL 8.7-10 .3 Not Available [address], [address], 12/18/2023 06:19:44 12/15/19 24 12/18/2023 COMP. METAB OLIC PANEL (14) protein, total 7.5 g/dL 6.0-8. 5 Not Available [address], [address], 12/18/2023 06:19:44 12/15/19 24 12/18/2023 COMP. METAB OLIC PANEL (14) albumin 4.7 g/dL 3.9-4. 9 Not Available [address], [address], 12/18/2023 06:19:44 12/15/19 24 12/18/2023 COMP. METAB OLIC PANEL (14) globulin, total 2.8 g/dL 1.5-4. 5 Not Available [address], [address], 12/18/2023 06:19:44 12/15/19 24 12/18/2023 COMP. METAB OLIC PANEL (14) bilirubin, total <0.2 mg/dL 0.0-1. 2 Not Available [address], [address], 12/18/2023 06:19:44 12/15/19 24 12/18/2023 COMP. METAB OLIC PANEL (14) alkaline phosphatase 79 IU/L 44-121 Not Available [address], [address], 12/18/2023 06:19:44 12/15/19 24 12/18/2023 COMP. METAB OLIC PANEL (14) AST (SGOT) 28 IU/L 0-40 Not Available [address], [address], 12/18/2023 06:19:44 12/15/19 24 12/18/2023 COMP. METAB OLIC PANEL (14) ALT (SGPT) 22 IU/L 0-32 Not Available [facility] [address], [address], 12/18/2023 06:19:44 12/15/19 24 12/18/2023 CARDI OVASC ULAR REPOR T interpretati on Note Suppl ement al repor t is avail able. Not Available [address], [address], 12/18/2023 06:19:45 12/15/19 24 12/18/2023 CARDI OVASC ULAR REPOR T pdf . Not Available [address], [address], 12/18/2023 06:19:45 12/15/19 24 12/16/2023 CBC, PLATE LET, NO DIFFE RENTI AL WBC 6.3 x10e3 /uL 3.4-10 .8 Not Available [address], [address], 12/18/2023 06:19:46 12/15/19 24 12/16/2023 CBC, PLATE LET, NO DIFFE RENTI AL RBC 4.17 x10e6 /uL 3.77-5 .28 Not Available [address], [address], 12/18/2023 06:19:46 12/15/19 24 12/16/2023 CBC, PLATE LET, NO DIFFE RENTI AL hemoglobin 14.2 g/dL 11.1-1 5.9 Not Available [address], [address], 12/18/2023 06:19:46 12/15/19 24 12/16/2023 CBC, PLATE LET, NO DIFFE RENTI AL hematocrit 42.0 % 34.0-4 6.6 Not Available [address] [place], [address], 12/18/2023 06:19:46 12/15/1912/16/2023 CBC, PLATE LET, NO DIFFE RENTI AL MCV 101 fL 79-97 above high normal Not Available [address], [address], 12/18/2023 06:19:46 12/15/1912/16/2023 CBC, PLATE LET, NO DIFFE RENTI AL MCH 34.1 pg 26.6-3 3.0 above high normal Not Available [address], [address], 12/18/2023 06:19:46 12/15/19 24 12/16/2023 CBC, PLATE LET, NO DIFFE RENTI AL MCHC 33.8 g/dL 31.5-3 5.7 Not Available [address], [address], 12/18/2023 06:19:46 12/15/1912/16/2023 CBC, PLATE LET, NO DIFFE RENTI AL RDW 13.7 % 11.7-1 5.4 Not Available [address], [address], 12/18/2023 06:19:46 12/15/1912/16/2023 CBC, PLATE LET, NO DIFFE RENTI AL platelets 213 x10e3 /uL 150-45 0 Not Available [address], [address], 12/18/2023 06:19:46 06/24/1906/25/2024 TSH+F REE T4 TSH 5.550 uIU/m L 0.450- 4.500 above high normal Not Available [address], [address], 06/25/2024 09:12:59 06/24/1906/25/2024 TSH+F REE T4 T4,free(dire ct) 1.21 NG/dL 0.82-1 .77 Not Available [address], [address], 06/25/2024 09:12:59 06/24/1906/25/2024 LIPID PANEL cholesterol, total 209 mg/dL 100-19 9 above high normal Not Available [address], [address], 06/25/2024 09:13:00 06/24/1906/25/2024 LIPID PANEL triglyceride s 121 mg/dL 0-149 Not Available [address], [address], 06/25/2024 09:13:00 06/24/1906/25/2024 LIPID PANEL HDL cholesterol 52 mg/dL >39 Not Available [address], [address], 06/25/2024 09:13:00 06/24/1906/25/2024 LIPID PANEL VLDL cholesterol morris 22 mg/dL 5-40 Not Available [address], [address], 06/25/2024 09:13:00 06/24/1906/25/2024 LIPID PANEL LDL chol calc ([facility]) 135 mg/dL 0-99 above high normal Not Available [address], [address], 06/25/2024 09:13:00 06/24/1906/25/2024 COMP. METAB OLIC PANEL (14) glucose 107 mg/dL 70-99 above high normal Not Available [address], [address], 06/25/2024 09:13:01 06/24/19 25 06/25/2024 COMP. METAB OLIC PANEL (14) BUN 11 mg/dL 8-27 Not Available [address], [address], 06/25/2024 09:13:01 06/24/19 25 06/25/2024 COMP. METAB OLIC PANEL (14) creatinine 0.59 mg/dL 0.57-1 .00 Not Available [address], [address], 06/25/2024 09:13:01 06/24/19 25 06/25/2024 COMP. METAB OLIC PANEL (14) eGFR 101 mL/mi n/1.7 3 >59 Not Available [address], [address], 06/25/2024 09:13:01 06/24/19 25 06/25/2024 COMP. METAB OLIC PANEL (14) BUN/creatini ne ratio 19 12-28 Not Available [address], [address], 06/25/2024 09:13:01 06/24/19 25 06/25/2024 COMP. METAB OLIC PANEL (14) sodium 134 mmol/ L 134-14 4 Not Available [address], [address], 06/25/2024 09:13:01 06/24/19 25 06/25/2024 COMP. METAB OLIC PANEL (14) potassium 4.6 mmol/ L 3.5-5. 2 Not Available [address], [address], 06/25/2024 09:13:01 06/24/19 25 06/25/2024 COMP. METAB OLIC PANEL (14) chloride 95 mmol/ L 96-106 below low normal Not Available [address], [address], 06/25/2024 09:13:01 06/24/19 25 06/25/2024 COMP. METAB OLIC PANEL (14) carbon dioxide, total 23 mmol/ L 20-29 Not Available [address], [address], 06/25/2024 09:13:01 06/24/19 25 06/25/2024 COMP. METAB OLIC PANEL (14) calcium 9.3 mg/dL 8.7-10 .3 Not Available [address], [address], 06/25/2024 09:13:01 06/24/19 25 06/25/2024 COMP. METAB OLIC PANEL (14) protein, total 7.1 g/dL 6.0-8. 5 Not Available [address], [address], 06/25/2024 09:13:06/24/19 25 06/25/2024 COMP. METAB OLIC PANEL (14) albumin 4.3 g/dL 3.9-4. 9 Not Available [address], [address], 06/25/2024 09:13:01 06/24/19 25 06/25/2024 COMP. METAB OLIC PANEL (14) globulin, total 2.8 g/dL 1.5-4. 5 Not Available [address], [address], 06/25/2024 09:13:01 06/24/19 25 06/25/2024 COMP. METAB OLIC PANEL (14) bilirubin, total 0.4 mg/dL 0.0-1. 2 Not Available [address] [place], [address], 06/25/2024 09:13:01 06/24/1906/25/2024 COMP. METAB OLIC PANEL (14) alkaline phosphatase 74 IU/L 44-121 Not Available [address], [address], 06/25/2024 09:13:01 06/24/19 25 06/25/2024 COMP. METAB OLIC PANEL (14) AST (SGOT) 25 IU/L 0-40 Not Available [address], [address], 06/25/2024 09:13:01 06/24/19 25 06/25/2024 COMP. METAB OLIC PANEL (14) ALT (SGPT) 23 IU/L 0-32 Not Available [address], [address], 06/25/2024 09:13:01 06/24/1906/25/2024 CARDI OVASC ULAR REPOR T interpretati on Note Suppl yarely patel is avail able. Not Available [address], [address], 06/25/2024 09:13:03 06/24/1906/25/2024 CARDI OVASC ULAR REPOR T pdf . Not Available [address], [address], 06/25/2024 09:13:03 06/24/1906/25/2024 CBC, PLATE LET, NO DIFFE RENTI AL WBC 6.3 x10e3 /uL 3.4-10 .8 Not Available [address], [address], 06/25/2024 09:13:04 06/24/1906/25/2024 CBC, PLATE LET, NO DIFFE RENTI AL RBC 4.14 x10e6 /uL 3.77-5 .28 Not Available [address], [address], 06/25/2024 09:13:04 06/24/1906/25/2024 CBC, PLATE LET, NO DIFFE RENTI AL hemoglobin 14.0 g/dL 11.1-1 5.9 Not Available [address], [address], 06/25/2024 09:13:06/24/1906/25/2024 CBC, PLATE LET, NO DIFFE RENTI AL hematocrit 40.9 % 34.0-4 6.6 Not Available [address], [address], 06/25/2024 09:13:06/24/1906/25/2024 CBC, PLATE LET, NO DIFFE RENTI AL MCV 99 fL 79-97 above high normal Not Available [address], [address], 06/25/2024 09:13:06/24/1906/25/2024 CBC, PLATE LET, NO DIFFE RENTI AL MCH 33.8 pg 26.6-3 3.0 above high normal Not Available [address], [address], 06/25/2024 09:13:06/24/1906/25/2024 CBC, PLATE LET, NO DIFFE RENTI AL MCHC 34.2 g/dL 31.5-3 5.7 Not Available [address], [address], 06/25/2024 09:13:06/24/1906/25/2024 CBC, PLATE LET, NO DIFFE RENTI AL RDW 12.8 % 11.7-1 5.4 Not Available [facility] [address] [place], [address], 06/25/2024 09:13:04 06/24/19 25 06/25/2024 CBC, PLATE LET, NO DIFFE RENTI AL platelets 199 x10e3 /uL 150-45 0 Not Available [id number] [place], [address], 06/25/2024 09:13:04 06/24/19 25 06/24/2024 HbA1c (hemo globi n A1c), blood HbA1c 5.4 Not Available In-Office Order Internal Use Only DO Not Attach Compendium DO Not Attach Compendium, Do Not Delete/merge, [id number] 06/24/2024 12:39:32 08/04/19 24 08/03/2023 MAMMO , scree bart, digit al, bilat eral No observ [facility] [address] [place], [address], 08/04/2023 11:51:12 08/12/19 25 08/11/2024 MAMMO , scree bart, digit al, bilat eral No observ ation record ed. [address], [address], 08/12/2024 17:19:24 09/02/19 25 09/01/2024 imagi ng/di agnos tic resul t No observ ation record ed. [facility] [address] [place], [address], 09/01/2024 13:25:04 Result Notes None recorded. Problems Name Problem SNOMED Code Status Onset Date Resolution Date Notes Provider Name and Address Organization Details Recorded Time Anxiety 41900304 Active 2018 JOSE MARIA [place], [place] - [facility] 9 10:44:25 Hypertensi ve disorder 16218050 Active 2018 Tammie Calero MA null, [place] - [facility] 9 10:44:48 Solitary nodule of lung 753640782 Active stable 3 mm LLL pulmonary nodule dating back 11/28/17. Two year stability KHALIDA STOUT NP Attn: Sudhakar garibay,[address] [facility], [place], [address], [facility] - [place] 1 09:56:04 Hypothyroi dism 48749780 Active 2020 Daniella Padilla PA-C Attn: Sudhakar garibay,[address] [facility], [place], [address], [facility] - [place] 1 14:14:47 Notes:Thyroid Problem Notes None recorded. Procedures Surgical History Date Name Laterality Status Provider Name and Address Organization Details Recorded Time 08/19/19 Date of Last Mammogram completed Radha Hutton [place] - [facility] 07/15/2022 11:53:04 Caesarean Section completed Alexandru Calero MA [facility] 10/29/2017 12:20:05 thyroidectomy completed Tammie Calero [place] - [place] 07/14/2018 10:45:41 Imaging Results Imaging Date Name Status LastModified by Organiz ation Details LastModified Time 08/03/2023 MAMMO, screening, digital, bilateral completed [facility] [address] [place], [address], 08/04/2023 11:51:12 08/11/2024 MAMMO, screening, digital, bilateral completed [facility] [address] [place], [address], 08/12/2024 17:19:24 09/01/2024 imaging/diagno stic result active [facility] [address] [place], [address], 09/01/2024 13:25:04 Procedure Notes None recorded. Medical Equipment None Reported. Allergies No known drug allergies Medications Name Sig Start Date Stop Date Status Note LastModified by Organization Details LastModified Time amoxicillin 500 mg capsule 02/13 completed Not Available Not Available Not Available clotrimazol e 10 mg cristela DISSOLVE SLOWLY 1 LOZENGE BY MOUTH THREE TIMES DAILY active Not Available Not Available No t Available alprazolam 1 mg tablet TAKE 1 TABLET BY MOUTH THREE TIMES DAILY NEEDED 2024 active Not Available Not Available Not Avai lable hydrocodone 5 mg-acetamin ophen 325 mg tablet TAKE 1-2 TABLETS BY MOUTH EVERY 6 HOURS NEEDED FOR PAIN 06/24 completed Not Available Not Available Not Available fluocinonid e 0.05 % topical gel APPLY TOPICALLY TO THE AFFECTED AREA TWICE DAILY 07/15 completed Not Available Not Available Not Available naltrexone 50 mg tablet Take 1 tablet every day by oral route for 90 days. 07/15 completed Not Available Not Available Not Available prednisone 20 mg tablet 06/24 completed Not Available Not Available Not Available sertraline 100 mg tablet TAKE 1 TABLET BY MOUTH EVERY DAY 2024 active Not Available Not Available Not Avai lable diphenoxyla te-atropine 2.5 mg-0.025 mg tablet 07/14 completed Not Available Not Available Not Available levothyroxi ne 25 mcg tablet TAKE 1 TABLET BY MOUTH DAILY active Not Available Not Available No t Available disulfiram 250 mg tablet TAKE 1 TABLET BY MOUTH DAILY active Not Available Not Available No t Available clobetasol 0.05 % topical gel APPLY SPARINGLY TO THE AFFECTED AREA 2-3 TIMES A DAY. ON IMPROVEME NT GRADUALLY REDUCE THE FREQUENCY 02/13 completed Not Available Not Available Not Available benzonatate 100 mg capsule Take 1 capsule 3 times a day by oral route as needed for 30 days. 08/15 completed Not Available Not Available Not Available metoprolol tartrate 50 mg tablet Take 1 tablet twice a day by oral route for 90 days. 07/14 completed Not Available Not Available Not Available folic acid 1 mg tablet TAKE 1 TABLET BY MOUTH EVERY DAY 2024 active Not Available Not Available Not Avai lable levothyroxi ne 200 mcg tablet TAKE 1 TABLET BY MOUTH EVERY DAY IN THE MORNING 2023 active Not Available Not Available Not Avai lable hydrochloro thiazide 25 mg tablet 06/08 completed Not Available Not Available Not Available albuterol sulfate HFA 90 mcg/actuati on aerosol inhaler INHALE 2 PUFFS BY MOUTH EVERY 6 HOURS NEEDED FOR WHEEZING active Not Available Not Available No t Available fluocinonid e 0.05 % topical cream APPLY TO AFFECTED AREA TWICE DAILY NEEDED active Not Available Not Available No t Available losartan 100 mg tablet TAKE 1 TABLET BY MOUTH DAILY active Not Available Not Available No t Available sertraline 50 mg tablet Take 2 tablets every day by oral route for 90 days. 03/21 completed Not Available Not Available Not Available amoxicillin 875 mg-potassiu m clavulanate 125 mg tablet TAKE 1 TABLET BY MOUTH TWICE DAILY FOR 10 DAYS 12/14 completed Not Available Not Available Not Available valsartan 160 mg tablet TAKE 1 TABLET BY MOUTH EVERY DAY. REPLACES LOSARTAN 04/28 completed Not Available Not Available Not Available azithromyci n 500 mg tablet Take 1 tablet every day by oral route for 3 days. 04/30 completed Not Available Not Available Not Available metoprolol tartrate 25 mg tablet TAKE 1 TABLET BY MOUTH TWICE DAILY 2024 active Not Available Not Available Not Avai lable fenofibrate 160 mg tablet Take 1 tablet every day by oral route for 90 days. 08/15 completed Not Available Not Available Not Available Aerochamber Plus Flow-Vu,Lar ge Mask USE WITH ALBUTEROL INHALER active Not Available Not Available No t Available Vitals Date Recorded Body height Body mass index (BMI) Body weight Respiratory rate Oxygen saturation Oxygen saturation in Arterial blood by Pulse oximetry Heart rate Systolic blood pressure Diastolic blood pressure Provider Name and Address Organization Details Last Updated DateTime 3 173.99 cm 34.8 kg/m2 745058. 43 g 16 /min 97 % 97 % 91 /min 139 mm[Hg] 83 mm[Hg] Gertrudis Senior MA [facility] 3 11:13:59 Date Recorded Body height Body mass index (BMI) Body weight Oxygen saturation Oxygen saturation in Arterial blood by Pulse oximetry Heart rate Systolic blood pressure Diastolic blood pressure Provider Name and Address Organization Details Last Updated DateTime 4 173.99 cm 35.1 kg/m2 289533. 41 g 97 % 97 % 89 /min 152 mm[Hg] 84 mm[Hg] Gertrudis Senior MA [facility] 4 11:52:52 Date Recorded Body height Body mass index (BMI) Body weight Heart rate Oxygen saturation Oxygen saturation in Arterial blood by Pulse oximetry Systolic blood pressure Diastolic blood pressure Provider Name and Address Organization Details Last Updated DateTime 5 173.99 cm 36 kg/m2 999257. 62 g 80 /min 96 % 96 % 146 mm[Hg] 89 mm[Hg] Gertrudis Senior MA [facility] 5 12:15:58 Social History Question Answer Notes LastModified by Organizat ion Details LastModified Time Tobacco Smoking Status Former Smoker quit 2007 Radha Hutton [place] null, [place] - [place] 07/15/2022 11:57:32 Do You Have An Advance Directive? No Information not available 08/09/2019 What Is Your Level Of Alcohol Consumption? Heavy 07/15/22 12 Pack Beer Every Night Information not available 07/15/2022 How Many Years Have You Consumed Alcohol? 10 Information not available 07/15/2022 Are You Blind Or Do You Have Difficulty Seeing? No Information not available 12/12/2020 What Is Your Level Of Caffeine Consumption? Occasional Information not available 12/12/2020 How Much Tobacco Do You Chew? None Information not available 08/09/2019 In The 14 Days Before Symptom Onset, Have You Had Close Contact With A Laboratory-confi rmed COVID-19 While That Case Was Ill? No Information not available 08/15/2020 In The 14 Days Before Symptom Onset, Have You Had Close Contact With A Person Who Is Under Investigation For COVID-19 While That Person Was Ill? No Information not available 08/15/2020 Have You Been To An Area Known To Be High Risk For COVID-19? No Information not available 08/15/2020 Are You Currently Employed? Yes Information not available 08/09/2019 Are You Deaf Or Do You Have Serious Difficulty Hearing? No Information not available 12/12/2020 What Type Of Diet Are You Following? REGULAR Information not available 07/14/2018 Which Illicit Or Recreational Drugs Have You Used? None Information not available 07/14/2018 Do You Or Have You Ever Used E-cigarettes Or Vape? 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 No Information not available 12/12/2020 Hard Of Hearing Or Deaf In One Or Both Ears? No Information not available 08/09/2019 Legally Blind In One Or Both Eyes? No Information not available 08/09/2019 Live Alone Or With Others? Alone Information not available 07/15/2022 Long Commute/limited Mobility No [email or web address] Information not available 06/08/2020 What Was The Date Of Your Most Recent Tobacco Screening? 06/24/2024 Information not available 06/24/2024 How Many Children Do You Have? 3 Information not available 08/09/2019 What Is Your Relationship Status? Single Information not available 08/15/2020 Do You Use Your Seat Belt Or Car Seat Routinely? Yes Information not available 12/12/2020 Are You Sexually Active? No 07/15/22 Has Not Been Sexually Active Since 2012 Information not available 07/15/2022 Smoke Alarm In Home Yes Information not available 08/09/2019 Do You Have Smoke And Carbon Monoxide Detectors In Your Home? Yes Information not available 12/12/2020 At What Age Did You Start Smoking Tobacco? 14 Information not available 08/09/2019 Are You Passively Exposed To Smoke? Yes Information not available 08/09/2019 Do You Or Have You Ever Used Smokeless Tobacco? Never Used Smokeless Tobacco Information not available 08/09/2019 How Much Tobacco Do You Smoke? No Information not available 07/15/2022 General Stress Level Medium Information not available 08/09/2019 Do You Feel Stressed (tense, Restless, Nervous, Or Anxious, Or Unable To Sleep At Night)? [id number] Information not available 07/15/2022 Do You Use Any Illicit Or Recreational Drugs? No [email or web address] Information not available 09/07/2020 Do You Use Sunscreen Routinely? No Information not available 07/15/2022 Has Tobacco Cessation Counseling Been Provided? Yes Information not available 07/15/2022 On What Date Was Tobacco Cessation Counseling Provided? 06/24/2024 Information not available 06/24/2024 How Many Years Have You Smoked Tobacco? 30 Information not available 10/29/2017 Do You Or Have You Ever Used Any Other Forms Of Tobacco Or Nicotine? No [email or web address] Information not available 09/07/2020 Sex: Female Functional Status Question Answer Note LastModified by Organization D etails LastModified Time Are you able to care for yourself? Yes Information n ot available 08/09/2019 What is your exercise level? None [email or web address] Information not available 06/08/2020 Mental Status None recorded. Family History Relationship Description Onset Age of this Age Resolved Age Notes LastModified by Organization Details LastModified Time Father Alcohol abuse [email or web address] Not available 10/29 12:16:13 Father Heart disease [email or web address] Not available 10/29 12:16:48 Notes:Patient noted Breast C ancer and Diabetes but no relation Medical History Condition Response Coronary Artery Disease N Gout N Other N Atrial Fibrillation N High Blood Pressure Y Thyroid Disease N Emphysema N Depression N COPD N Blood Clots N Congenital Heart Disease N Pneumonia N Lung Mass N Sinusitis N Cystic Fibrosis N Anxiety Disorder Y Muscle, Joint, or Bone Problems N Arthritis Y Blood Clot N Acid Reflux (GERD) N Cancer Y Stroke N ADHD N High Cholesterol N Liver Disease N Schizophrenia N Headaches N Kidney Disease N Allergies/Hayfever N Thyroid Problems Y Kidney or Bladder Problems N GI Problems N NSAID Use N Eating Disorder N Skin Problems N Anemia N Multiple Sclerosis N Heart Attack (TN) N Mental Illness N Diabetes N Seizures/Epilepsy N Tuberculosis N Diverticulitis N Asthma N Allergies N Substance Abuse N Sleep Apnea N Hepatitis N Heart Disease N Bronchitis N Pulmonary Embolism N Hypertension N Heart Failure N Osteoporosis N Gynecological History Statement/Question Response If Post Menopausal, Age at Menopause 52 Date of Last Mammogram 08/19/2021 Menses Monthly N Date of Last Pap Smear Age at Menarche 16 Current Control Method Menopause Age at First Child 24 LMP Approximate Obstetrics History GPAL:G 3 P 3 0 0 3 Type Value Multiple Births 0 Full Term 3 Induced 0 Spontaneous 0 Premature 0 Living 3 Ectopics 0 Total 3 Immunizations Vaccine Type Date Status Note Provider Nam e and Address Organization Details Recorded Time zoster live 7 completed Gertrudis Senior [place] null, [place] [facility] 04/29/2023 12:08:47 Influenza, split virus, quadrivalent, preservative 9 completed Not Available [facility] 07/09/2019 02:41:59 Influenza, split virus, quadrivalent, preservative 0 completed KHALIDA STOUT NP Attn: [address] [place], [address], [place] [facility] 06/08/2020 16:36:37 COVID-19, mRNA, LNP-S, PF, 100 mcg/0.5mL dose or 50 mcg/0.25mL dose 1 completed Giovana Roman [place], [place] [facility] 10/10/2020 12:55:28 COVID-19, mRNA, LNP-S, PF, 100 mcg/0.5mL dose or 50 mcg/0.25mL dose 1 completed YUSRA Rose [place], [place] [facility] 11/07/2020 14:13:58 Influenza, split virus, quadrivalent, preservative 1 completed Winnie Gonzalez [place], [place] [facility] 05/22/2021 10:47:14 COVID-19, mRNA, LNP-S, PF, 100 mcg/0.5mL dose or 50 mcg/0.25mL dose 2 completed Winnie Gonzalez [place], [place] [facility] 10/23/2021 12:22:10 Influenza, split virus, quadrivalent, PF 2 completed Kristen Cordero [place], [place] [facility] 04/30/2022 11:50:12 Influenza, split virus, quadrivalent, PF 3 completed Radha Hutton [place], [place] [facility] 04/17/2023 12:12:36 Pneumococcal conjugate PCV20, polysaccharide QOA931 conjugate, adjuvant, PF 4 completed Gertrudis Senior MA brittany, [facility] 04/08/2024 14:18:03 Past Encounters Encounter ID Performer Location Encounter Start Date Encounter Closed Date Diagnosis/Indication Diagnosis SNOMED-CT Code Diagnosis ICD10 Code Diagnosis Note [id number] Tammie Calero MA [facility] [address] [place] [address] 10/29/2017 12:03:45 10/29/2017 13:04:34 Ulcerative colitis 79298000 K51.00 Chronic cough 57715484 R 05 [id number] Daniella Padilla PA-C [facility] [address] [place] [address] 12/01/2017 11:17:26 12/01/2017 11:56:47 Solitary nodule of lung 807610504 R91.1 [id number] Daniella Padilla PA-C [facility] [address] [place] [address] 05/26/2018 11:29:24 05/26/2018 12:48:05 Generalized anxiety disorder 38195322 F41.1 Chronic depression 53659 0009 F34.1 Essential hypertension 90436488 I10 Hypothyroidism 29935048 E00.0 [id number] Daniella Padilla PA-C [facility] [address] [place] [address] 07/14/2018 10:32:59 07/14/2018 11:33:25 Ex-smoker 6979455 Z87.891 patient has been smoke free for 5-6 years Alcohol dependence 02190 003 F10.20 Chronic depression 77292 0009 F34.1 [id number] Daniella Padilla PA-C [facility] [address] [place] [address] 08/02/2018 10:49:28 08/02/2018 11:51:19 Chronic depression 007258732 F34.1 [id number] Daniella Padilla PA-C [facility] [address] [place] [address] 2019 12:07:12 2019 13:38:21 Administration of influenza vaccine 16966053 Z23 Consent signed sd,rma Epidermoid cyst of skin 218143098 L72.3 Alcohol dependence 40357 003 F10.20 [id number] NEDA Marshall [address] [place] [address] 08/09/2019 11:44:31 08/09/2019 13:45:12 Essential hypertension 02407753 I10 Persistent cough 6161269 02 R05 Dyspnea on exertion 6084 5006 R06.09 Alcohol dependence 74559 003 F10.20 [id number] NEDA Marshall [facility] [address] [place] [address] 08/15/2019 14:28:23 08/15/2019 15:30:49 Primary hypertriglyceridemia 189402707 E78.1 Multiple n odules of lung 487299841 R91.8 [id number] Daniella Padilla PA-C [facility] [address] [place] [address] 08/31/2019 10:31:12 08/31/2019 12:19:25 Alcohol dependence 51023132 F10.20 Primary hypertriglyceridemia 003540955 E78.1 Multiple n odules of lung 646302441 R91.8 [id number] Daniella Padilla PA-C [facility] [address] [place] [address] 01/18/2020 09:33:57 01/18/2020 16:42:00 Solitary nodule of lung 208147813 R91.1 [id number] Daniella Padilla PA-C [facility] [address] [place] [address] 03/21/2020 09:36:35 03/21/2020 13:12:43 Essential hypertension 10931749 I10 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.3 [id number] Daniella Padilla PA-C [facility] [address] [place] [address] 04/11/2020 11:59:31 04/11/2020 13:38:47 Chronic cough 06536737 R05 [id number] NEDA Marshall [facility] [address] [place] [address] 05/11/2020 12:21:09 05/11/2020 14:13:42 Chronic cough 83601911 R05 [id number] KATI DONALDSON (Adult Med) [address] [place] [address] 06/08/2020 15:05:09 06/11/2020 18:26:03 Chronic cough 63738278 R05 Dyspnea on exertion 6084 5006 R06.09 PFT Obstructiv e sleep apnea syndrome 55730606 G47.33 HSAT Administra tion of influenza vaccine 19631415 Z23 [id number] Daniella Padilla PA-C [facility] [address] [place] [address] 08/15/2020 11:04:20 08/15/2020 18:59:21 Long-term drug therapy 668402540 Z79.899 Essential hypertension 48250660 I10 Hypothyroidism 19667413 E00.0 Alcohol dependence 08480 003 F10.20 Generalize d anxiety disorder 09989704 F41.1 Chronic depression 36569 0009 F34.1 [id number] KATI DONALDSON (Adult Med) [address] [place] [address] 09/07/2020 14:10:46 09/10/2020 13:57:01 Chronic cough 45189889 R05 recommend trying tessalon perles that have been prescribed to her, OTC delsym . multifacto rial Obstructiv e sleep apnea syndrome 31717460 G47.33 Home sleep apnea testing ordered, awaiting competion Pulmonary emphysema 8743 3001 J43.9 mild air trapping and hyperinfla tion noted Albuterol as needed Ex-smoker 2010895 Z87.89 1 1ppd for 30 years. Will order LDCT, lung cancer screening. Discussed risk/benef its, importance of annual screening adherence. Body mass index 30+ - obesity 320665420 Z68.34 Solitary n odule of lung 242290392 R91.[address] 02/02/20 : stable 3 mm LLL pulmonary nodule dating back 11/28/17. Two year stability [id number] ROSALBA Villar 14 IM [address] [facility] [place] [address] 10/10/2020 11:29:18 10/11/2020 16:25:45 Administration of SARS-CoV-2 antigen vaccine 229080261 Z23 [id number] Hailey Vidal LPN Jam[facility] 14 IM [address] [facility] [place] [address] 11/07/2020 11:35:35 11/08/2020 12:37:32 Administration of SARS-CoV-2 antigen vaccine 358637742 Z23 [id number] NEDA Marshall [facility] [address] [place] [address] 12/12/2020 11:14:04 12/19/2020 07:59:11 Lump in upper outer quadrant of right breast 0146157558 07940 N63.11 Hematochezia 569916829 K 92.1 Solitary n odule of lung 147044727 R91.1 [id number] Daniella Padilla PA-C [facility] [address] [place] [address] 05/13/2021 11:13:56 05/13/2021 12:17:23 Body mass index 30+ - obesity 756876968 Z68.33 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 956065926 E06.3 Essential hypertension 18432725 I10 Screening for malignant neoplasm of colon 922089464 Z12.11 Anxiety 02875738 F41.9 [id number] JOSE MARIA Kathleen [facility] [address] [place] [address] 05/22/2021 10:32:48 05/22/2021 11:40:10 Active or passive immunization 873260494 Z23 [id number] JOSE MARIA Kathleen [facility] [address] [place] [address] 10/23/2021 10:25:25 10/23/2021 12:22:46 Administration of SARS-CoV-2 mRNA vaccine 1783153795 Z23 [id number] Daniella Padilla PA-C [facility] [address] [place] [address] 11/12/2021 15:41:47 11/12/2021 16:29:13 Cheilosis 29269274 K13.0 [id number] Daniella Padilla PA-C [facility] [address] [place] [address] 11/28/2021 11:34:19 11/28/2021 12:19:09 Alcoholic fatty liver 11737523 K70.0 Esophageal dysphagia 408 12486 R13.19 Hemoptysis 30300960 R04. 2 [id number] Daniella Padilla PA-C [facility] [address] [place] [address] 04/30/2022 10:30:05 04/30/2022 11:13:13 Long-term drug therapy 223321876 Z79.899 Overweight 979078969 E66 .3 Essential hypertension 68977173 I10 Hypothyroidism 34898201 E00.0 Alcohol dependence 26876 003 F10.20 Administra tion of influenza vaccine 90116714 Z23 Consent signed sd,rma [id number] CRISTIANE TORRES MD [facility] (FIELD LABORATORY OPERATOR) [address] [place] [address] 07/15/2022 11:41:21 07/23/2022 14:57:55 Screening for malignant neoplasm of cervix 628051117 Z12.4 - Due for co-testing ; collected today Screening for malignant neoplasm of breast 751185798 Z12.31 - History of BIRADS 2 on breast US, 08/19/2021; routine screening recommende d- Due for screening mammogram; ordered today Hypertensive disorder 38 074920 I10 - BP not controlled today; will need to follow up with PCP [id number] Daniella Padilla PA-C [facility] [address] [place] [address] 10/31/2022 10:35:26 11/04/2022 09:09:51 Iron deficiency anemia 22172500 D50.8 Fatigue 54416026 R53.83 Overweight 868853831 E66 .3 Generalize d anxiety disorder 75091738 F41.1 Solitary n odule of lung 962066927 R91.1 Hypothyroidism 54996925 E00.0 Essential hypertension 16668532 I10 Chronic depression 73506 0009 F34.1 [id number] Daniella Padilla PA-C [facility] [address] [place] [address] 02/13/2023 14:51:37 02/16/2023 12:33:35 Hypertensive disorder 36591158 I10 Chronic depression 28955 0009 F34.1 Chronic al coholism in remission 165451109 F10.21 Overweight 538316016 E66 .3 [id number] Daniella Padilla PA-C [facility] [address] [place] [address] 03/09/2023 10:57:43 03/11/2023 15:14:12 Adult health examination 058850574 Z00.00 Overweight 732137829 E66 .3 [id number] Gertrudis Senior MA [facility] [address] [place] [address] 04/17/2023 12:00:45 04/20/2023 16:20:22 Administration of influenza vaccine 84914239 Z23 Consent signed sd,rma [id number] Daniella Padilla PA-C [facility] [address] [place] [address] 12/15/2023 11:35:02 12/17/2023 20:58:23 Mixed anxiety and depressive disorder 901297474 F41.8 Overweight 814708790 E66 .3 Generalize d anxiety disorder 32234651 F41.1 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 625056063 E06.3 Essential hypertension 01888578 I10 [id number] Gertrudis Senior MA [facility] [address] [place] [address] 04/08/2024 14:06:58 04/18/2024 10:18:24 Administration of pneumococcal vaccine 41720795 Z23 [id number] Daniella Padilla PA-C [facility] [address] [place] [address] 06/24/2024 12:05:12 06/27/2024 10:56:05 Essential hypertension 98787327 I10 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 471120826 E06.3 Overweight 914493713 E66 .3 Health Concerns Section Related Observation LastModified by Organization Detai ls LastModified Time None Recorded Concern Status LastModified by Organization Details LastModified Time None Recorded Advance Directives Directive N: Payers Encounter Date Sequence Insurance Name Policy Number Policy Xiao Covered Member ID Xiao Member ID Guarantor Name 03/09/2023 1 [facility] (MEDICAID HMO) [id number] Keya Tholin [id number] Keya Tholin 04/17/2023 1 [facility] (MEDICAID HMO) [id number] Keya Tholin [id number] Keya Tholin 12/15/2023 1 [facility] (MEDICAID HMO) [id number] Keya Tholin [id number] Keya Tholin 04/08/2024 1 [facility] (MEDICAID HMO) [id number] Keya Tholin [id number] Keya Tholin 06/24/2024 1 [facility] (MEDICAID HMO) [id number] Keya Tholin [id number] Keya Tholin Notes Date Note Type Note Provider Name and Address Organization Details Recorded Time 03/09/2023 text/html needs a phys and TB test... Daniella Padilla PA-C Attn: [address] [place], [address], [facility] 03/09/2023 11:33:54 12/15/2023 text/html Patient presents to clinic needing refill of alprazolam and levothyroxine. No complaints or concerns. Has been close to a year since previous visit. Was seen about a month ago for chronic cough. Still coughing some, but better. Has recently put on weight and therefore is causing her shortness of breath. Denies chest pain. Denies swelling. Former smoker. Daniella Padilla PA-C Attn: [address] [place], [address], [facility] 12/15/2023 12:22:57 06/24/2024 text/html annual check up...needs labs...htn and low thyroid... Daniella Padilla PA-C Attn: [address] [place], [address], [facility] 06/24/2024 13:05:53 OBGyn Episode Ob Episode Information Episode Created Date Number of Fetuses Patient Bloodtype Patient rh Status Prepregnancy Weight lbs Domestic Partner Domestic Partner Phone Father Name School Transportation Supervisor Status 08/09/19 20 1 CLOSED Fetus Data First Name Last Name Admitted to NICU Weight (g) Sex Living Outcome Pediatric Complications Fetus ID Race Codes Race Delivery Type [id number] Leo Calculation Initial Leo Date Initial Exam Date Initial Exam Provider Initial Ultrasound Date Last Menstrual Period Date Ultra Sound Weeks Gestation 0 Eighteen To Twenty Week Leo Update Ultra Sound Date Fundal Height At Umbil Quickening Date Ultra Sound Latest Weeks Gestation Final Leo Confirmed By Final Leo Confirmed Date Final Leo Date Ultra Sound Latest Days Gestation 0 0 Menstrual History Last Menstrual Date Menses Monthly On Bcp Conception Prior Menses Frequency Hcg Plus Date Menarche Onset Age Delivery Information Delivery Date Delivery Type Labor Anesthesia Weeks Gestation Incision Type Labor Labor Length Hrs Delivered By Post Complications Tubal Sterilization Discharge Date Comments 7 Discharge Information Feeding Method Contraceptive Method Maternal HG B and HCT Levels Ob Episode Information Episode Created Date Number of Fetuses Patient Bloodtype Patient rh Status Prepregnancy Weight lbs Domestic Partner Domestic Partner Phone Father Name School Transportation Supervisor Status 08/09/19 1 CLOSED Fetus Data First Name Last Name Admitted to NICU Weight (g) Sex Living Outcome Pediatric Complications Fetus ID Race Codes Race Delivery Type [id number] Leo Calculation Initial Leo Date Initial Exam Date Initial Exam Provider Initial Ultrasound Date Last Menstrual Period Date Ultra Sound Weeks Gestation 0 Eighteen To Twenty Week Leo Update Ultra Sound Date Fundal Height At Umbil Quickening Date Ultra Sound Latest Weeks Gestation Final Leo Confirmed By Final Leo Confirmed Date Final Leo Date Ultra Sound Latest Days Gestation 0 0 Menstrual History Last Menstrual Date Menses Monthly On Bcp Conception Prior Menses Frequency Hcg Plus Date Menarche Onset Age Delivery Information Delivery Date Delivery Type Labor Anesthesia Weeks Gestation Incision Type Labor Labor Length Hrs Delivered By Post Complications Tubal Sterilization Discharge Date Comments 9 Discharge Information Feeding Method Contraceptive Method Maternal HG B and HCT Levels Ob Episode Information Episode Created Date Number of Fetuses Patient Bloodtype Patient rh Status Prepregnancy Weight lbs Domestic Partner Domestic Partner Phone Father Name School Transportation Supervisor Status 08/09/19 20 1 CLOSED Fetus Data First Name Last Name Admitted to NICU Weight (g) Sex Living Outcome Pediatric Complications Fetus ID Race Codes Race Delivery Type [id number] Leo Calculation Initial Leo Date Initial Exam Date Initial Exam Provider Initial Ultrasound Date Last Menstrual Period Date Ultra Sound Weeks Gestation 0 Eighteen To Twenty Week Leo Update Ultra Sound Date Fundal Height At Umbil Quickening Date Ultra Sound Latest Weeks Gestation Final Leo Confirmed By Final Leo Confirmed Date Final Leo Date Ultra Sound Latest Days Gestation 0 0 Menstrual History Last Menstrual Date Menses Monthly On Bcp Conception Prior Menses Frequency Hcg Plus Date Menarche Onset Age Delivery Information Delivery Date Delivery Type Labor Anesthesia Weeks Gestation Incision Type Labor Labor Length Hrs Delivered By Post Complications Tubal Sterilization Discharge Date Comments 0 Discharge Information Feeding Method Contraceptive Method Maternal HG B and HCT Levels
--- OUTSIDE RECORDS SUMMARY | 2024-09-01 13:33 | XMS_ITS ---
Author Organization [facility] Address [address] [place] [address] Phone Care Team Providers Care Lens Assistant Name Role Phone LENNY AREVALO MD Unavailable [phone] DANIELLA SCHNEIDER PA-C Primary Care Provider [phone] DANIELLA AJ MD Unavailable [phone] Problems Includes: Active, inactive, and resolved Problems All Visits Onset Date Resolved Date Provider Condition S tatus FAM HX-DIABETES MELLITUS 10/05/2009 YEMI LAYNE WHNP-BC Active Last Documented On 10/05/2009 1:58PM ; [facility] Note: paternal grandfathere FAMILY HX-BREAST MALIG 10/05/2009 YEMI LAYNE WHNP-BC Active Last Documented On 10/05/2009 1:59PM ; [facility] Note: maternal grandmother HYPERTENSION NOS 10/05/2009 YEMI JOINER WHNP-BC Active Last Documented On 0 1:59PM ; [facility] HYPOTHYROIDISM NOS 10/05/2009 YEMI LAYNE WHN P-BC Active Last Documented On 11/28/2019 9:57AM ; [facility] Note: thyroidectomy - s/p thyroid cancer Plan of Treatment Findings Encounter Date Ordered Clinical summary pro vided to patient WELL WOMAN EXAM with YEMI LAYNE WHNP-BC 11/28/2019 Last Documented On 0 9:57AM ; [facility] Ordered follow-up visit 1 ye ar or as needed WELL WOMAN EXAM with YEMI LAYNE WHNP-BC 11/28/2019 Last Documented On 0 9:57AM ; [facility] Ordered Clinical summary pro vided to patient WELL WOMAN EXAM with YEMI LAYNE WHNP-BC 11/24/2018 Last Documented On 9 3:22PM ; [facility] Ordered follow-up visit 1 ye ar or as needed WELL WOMAN EXAM with YEMI LAYNE NP-BC 11/24/2018 Last Documented On 9 3:22PM ; [facility] Ordered Clinical summary pro vided to patient ANNUAL DIRECTOR OF PERSONNEL EXAM with YEMI LAYNE NP-BC 11/19/2017 Last Documented On 8 1:22PM ; [facility] Ordered follow-up visit 1 ye ar or as needed ANNUAL DIRECTOR OF PERSONNEL EXAM with YEMI LAYNE NP-BC 11/19/2017 Last Documented On 8 1:22PM ; [facility] Ordered Clinical summary pro vided to patient CARDIAC REHAB NURSE EXAM with YEMI LAYNE NP-BC 11/10/2016 Last Documented On 7 11:21AM ; [facility] Ordered follow-up visit 1 ye ar or as needed CARDIAC REHAB NURSE EXAM with YEMI LAYNE NP-BC 11/10/2016 Last Documented On 7 11:21AM ; [facility] Ordered Clinical summary pro vided to patient ANNUAL DIRECTOR OF PERSONNEL EXAM with YEMI LAYNE NP-BC 11/05/2015 Last Documented On 6 9:58AM ; [facility] Ordered follow-up visit 1 ye ar or as needed ANNUAL DIRECTOR OF PERSONNEL EXAM with YEMI LAYNE NP-BC 11/05/2015 Last Documented On 6 9:58AM ; [facility] Advised to call for any recu rrence of post menopausal bleeding. All above results d/w pt. Will call with EMB results ENDOMETRIAL BIOPSY with YEMI LAYNE [facility] 07/06/2014 Last Documented On 5 1:51PM ; [facility] Ordered Clinical summary pro vided to patient ENDOMETRIAL BIOPSY with YEMI ALYNE NP-BC 07/06/2014 Last Documented On 5 1:51PM ; [facility] Ordered Clinical summary pro vided to patient ANNUAL DIRECTOR OF PERSONNEL EXAM with YEMI LAYNE NP-BC 10/27/2013 Last Documented On 4 2:23PM ; [facility] Ordered follow-up visit 1 ye ar or as needed ANNUAL DIRECTOR OF PERSONNEL EXAM with YEMI LAYNE [facility] 10/27/2013 Last Documented On 4 2:23PM ; [facility] Ordered Clinical summary pro vided to patient CARDIAC REHAB NURSE EXAM with YEMI LAYNE [facility]- 06/28/2012 Last Documented On 3 10:24AM ; [facility] Ordered follow-up visit 1 ye ar or as needed CARDIAC REHAB NURSE EXAM with YEMI LAYNE [facility]- 06/28/2012 Last Documented On 3 10:24AM ; [facility] Ordered follow-up visit 1 year or as needed CARDIAC REHAB NURSE EXAM with FLOR JOYNERDEMETRI 10/10/2010 Last Documented On 1 9:57AM ; [facility] Ordered follow-up visit 1 ye ar or as needed CARDIAC REHAB NURSE EXAM with YEMI LAYNE [facility] 10/05/2009 Last Documented On 0 2:16PM ; [facility] Instructions to patient Instructions for patient : B reast Self Exam discussed Last Documented On 0 9:33AM ; [facility] Lose weight Last Documented On 0 9:34AM ; [facility] Instructions for patient : B reast Self Exam discussed Last Documented On 9 2:11PM ; [facility] Lose weight Last Documented On 9 2:12PM ; [facility] Colonoscopy Handout given to patient Last Documented On 9 2:12PM ; [facility] Instructions for patient : B reast Self Exam discussed Last Documented On 8 1:00PM ; [facility] Lose weight Last Documented On 8 1:00PM ; [facility] Colonoscopy Handout given to patient Last Documented On 8 1:00PM ; [facility] Instructions for patient : B reast Self Exam discussed Last Documented On 7 11:07AM ; [facility] Lose weight Last Documented On 7 11:08AM ; [facility] Colonoscopy Handout given to patient Last Documented On 7 11:08AM ; [facility] Instructions for patient : B reast Self Exam discussed Last Documented On 6 9:34AM ; [facility] Lose weight Last Documented On 6 9:34AM ; [facility] Colonoscopy Handout given to patient Last Documented On 6 9:34AM ; [facility] Instructions for patient : B reast Self Exam discussed Last Documented On 4 2:05PM ; [facility] Lose weight Last Documented On 4 2:05PM ; [facility] Colonoscopy Handout given to patient Last Documented On 4 2:05PM ; [facility] Instructions for patient : B reast Self Exam discussed Last Documented On 3 10:13AM ; [facility] Lose weight Last Documented On 3 10:14AM ; [facility] Colonoscopy Handout given to patient Last Documented On 3 10:14AM ; [facility] Instructions for patient : B reast Self Exam discussed. Reviewed monthly self breast examination and technique Last Documented On 1 9:43AM ; [facility] Recommend diet and exercise at least 30 min three times per week Last Documented On 1 9:43AM ; [facility] Recommend preventative vacci nation including but not limited to influenza/flu vaccine, DTP, Rubella, Hepatitis B vaccination series Last Documented On 1 9:43AM ; [facility] Recommend annual pap smear e xamination or every three year if high risk hpv negative and 3 consecutive normal pap examination during preceding three years Last Documented On 1 9:43AM ; [facility] Recommend TSH, fasting gluco se, fasting lipid panel, CBC, BMP Last Documented On 1 9:43AM ; [facility] Recommend Calcium supplement ation and weight bearing exercise Last Documented On 1 9:43AM ; [facility] Instructions for patient : B reast Self Exam discussed Last Documented On 0 1:54PM ; [facility] Lose weight Last Documented On 0 1:54PM ; [facility] Education and Decision Aids were provided during visit for: Patient Education: Daily morris cium and vitamin D Last Documented On 0 9:33AM ; [facility] Patient Education: weight be aring exercise Last Documented On 0 9:33AM ; [facility] Patient Education: Daily morris cium and vitamin D Last Documented On 9 2:11PM ; [facility] Patient Education: weight be aring exercise Last Documented On 9 2:11PM ; [facility] Patient Education: Daily morris cium and vitamin D Last Documented On 8 1:00PM ; [facility] Patient Education: weight be aring exercise Last Documented On 8 1:00PM ; [facility] Patient Education: Daily morris cium and vitamin D Last Documented On 7 11:07AM ; [facility] Patient Education: weight be aring exercise Last Documented On 7 11:07AM ; [facility] Hydrochlorothiazide 12.5 MG Oral Capsule (Medication) Last Documented On 7 11:14AM ; [facility] Patient Education: Daily morris cium and vitamin D Last Documented On 6 9:34AM ; [facility] Patient Education: weight be aring exercise Last Documented On 6 9:34AM ; [facility] INFORMED CONSENT DISCUSSION: Endometrial biopsy was discussed in detail including discomfort, insufficient specimen with need to repeat test, and rare incidence of uterine perforation. Patient expressed understanding of the above and consented to the procedure Last Documented On 5 1:32PM ; [facility] Patient Education: Daily morris cium and vitamin D Last Documented On 4 2:05PM ; [facility] Patient Education: weight be aring exercise Last Documented On 4 2:05PM ; [facility] Patient Education: Daily morris cium and vitamin D Last Documented On 3 10:13AM ; [facility] Patient Education: weight be aring exercise Last Documented On 3 10:13AM ; [facility] Patient Education: calcium a nd vitamin D BID Last Documented On 1 9:57AM ; [facility] Patient Education: Daily morris cium and vitamin D Last Documented On 0 1:54PM ; [facility] Patient Education: weight be aring exercise Last Documented On 0 1:54PM ; [facility] Assessments Includes: Assessments for all patient encounters Findings Encounter Date NORMAL FEMALE EXAM WELL WOMAN EXAM with YEMIASHLEY LAYNE WHNP-BC 11/28/2019 Last Documented On 0 9:57AM ; [facility] Screening Malig. Neoplasm Rectum WELL WO MAN EXAM with YEMIASHLEY LAYNE WHNP-BC 11/28/2019 Last Documented On 0 9:57AM ; [facility] NORMAL FEMALE EXAM WELL WOMAN EXAM with YEMIASHLEY LAYNE WHNP-BC 11/24/2018 Last Documented On 9 3:22PM ; [facility] Screening Malig. Neoplasm Rectum WELL WO MAN EXAM with YEMIASHLEY LAYNE WHNP-BC 11/24/2018 Last Documented On 9 3:22PM ; [facility] NORMAL FEMALE EXAM ANNUAL DIRECTOR OF PERSONNEL EXAM with YEMI LAYNE WHNP-BC 11/19/2017 Last Documented On 8 1:22PM ; [facility] NORMAL FEMALE EXAM CARDIAC REHAB NURSE EXAM with YEMI LAYNE W HNP-BC 11/10/2016 Last Documented On 7 11:21AM ; [facility] Screening Malig. Neoplasm Rectum CARDIAC REHAB NURSE EXAM with Michelle LAYNE WHNP-BC 11/10/2016 Last Documented On 7 11:21AM ; [facility] NORMAL FEMALE EXAM ANNUAL DIRECTOR OF PERSONNEL EXAM with YEMI LAYNE WHNP-BC 11/05/2015 Last Documented On 6 9:58AM ; [facility] Screening Malig. Neoplasm Rectum ANNUAL DIRECTOR OF PERSONNEL EXAM with YEMIASHLEY LAYNE WHNP-BC 11/05/2015 Last Documented On 6 9:58AM ; [facility] Postmenopausal bleeding ENDOMETRIAL BIOPSY with YEMIASHLEY LAYNE WHNP-BC 07/06/2014 Last Documented On 5 1:51PM ; [facility] NORMAL FEMALE EXAM ANNUAL DIRECTOR OF PERSONNEL EXAM with YEMIASHLEY LAYNE WHNP-BC 10/27/2013 Last Documented On 4 2:23PM ; [facility] Screening Malig. Neoplasm Rectum ANNUAL DIRECTOR OF PERSONNEL EXAM with YEMI A LAYNE WHNP-BC 10/27/2013 Last Documented On 4 2:23PM ; [facility] NORMAL FEMALE EXAM CARDIAC REHAB NURSE EXAM with YEMIASHLEY LAYNE W HNP-BC 06/28/2012 Last Documented On 3 10:24AM ; [facility] Screening Malig. Neoplasm Rectum CARDIAC REHAB NURSE EXAM with Michelle LAYNE [facility]- 06/28/2012 Last Documented On 3 10:24AM ; [facility] NORMAL FEMALE EXAM CARDIAC REHAB NURSE EXAM with FLOR Slaughter 10/10/2010 Last Documented On 1 9:57AM ; [facility] Normal routine history and physical CARDIAC REHAB NURSE EXAM wit h YEMI LAYNE [facility]- 10/05/2009 Last Documented On 0 2:16PM ; [facility] Routine pelvic exam CARDIAC REHAB NURSE EXAM with YEMI LAYNE [facility]- 10/05/2009 Last Documented On 0 2:16PM ; [facility] Screening Malig. Neoplasm Rectum CARDIAC REHAB NURSE EXAM with Michelle LAYNE [facility] 10/05/2009 Last Documented On 0 2:16PM ; [facility] Instructions Includes: Instructions for all patient encounters Instructions to patient Instructions for patient : B reast Self Exam discussed Last Documented On 0 9:33AM ; [facility] Lose weight Last Documented On 0 9:34AM ; [facility] Instructions for patient : B reast Self Exam discussed Last Documented On 9 2:11PM ; [facility] Lose weight Last Documented On 9 2:12PM ; [facility] Colonoscopy Handout given to patient Last Documented On 9 2:12PM ; [facility] Instructions for patient : B reast Self Exam discussed Last Documented On 8 1:00PM ; [facility] Lose weight Last Documented On 8 1:00PM ; [facility] Colonoscopy Handout given to patient Last Documented On 8 1:00PM ; [facility] Instructions for patient : B reast Self Exam discussed Last Documented On 7 11:07AM ; [facility] Lose weight Last Documented On 7 11:08AM ; [facility] Colonoscopy Handout given to patient Last Documented On 7 11:08AM ; [facility] Instructions for patient : B reast Self Exam discussed Last Documented On 6 9:34AM ; [facility] Lose weight Last Documented On 6 9:34AM ; [facility] Colonoscopy Handout given to patient Last Documented On 6 9:34AM ; [facility] Instructions for patient : B reast Self Exam discussed Last Documented On 4 2:05PM ; [facility] Lose weight Last Documented On 4 2:05PM ; [facility] Colonoscopy Handout given to patient Last Documented On 4 2:05PM ; [facility] Instructions for patient : B reast Self Exam discussed Last Documented On 3 10:13AM ; [facility] Lose weight Last Documented On 3 10:14AM ; [facility] Colonoscopy Handout given to patient Last Documented On 3 10:14AM ; [facility] Instructions for patient : B reast Self Exam discussed. Reviewed monthly self breast examination and technique Last Documented On 1 9:43AM ; [facility] Recommend diet and exercise at least 30 min three times per week Last Documented On 1 9:43AM ; [facility] Recommend preventative vacci nation including but not limited to influenza/flu vaccine, DTP, Rubella, Hepatitis B vaccination series Last Documented On 1 9:43AM ; [facility] Recommend annual pap smear e xamination or every three year if high risk hpv negative and 3 consecutive normal pap examination during preceding three years Last Documented On 1 9:43AM ; [facility] Recommend TSH, fasting gluco se, fasting lipid panel, CBC, BMP Last Documented On 1 9:43AM ; [facility] Recommend Calcium supplement ation and weight bearing exercise Last Documented On 1 9:43AM ; [facility] Instructions for patient : B reast Self Exam discussed Last Documented On 0 1:54PM ; [facility] Lose weight Last Documented On 0 1:54PM ; [facility] Education and Decision Aids were provided during visit for: Patient Education: Daily mroris cium and vitamin D Last Documented On 0 9:33AM ; [facility] Patient Education: weight be aring exercise Last Documented On 0 9:33AM ; [facility] Patient Education: Daily morris cium and vitamin D Last Documented On 9 2:11PM ; [facility] Patient Education: weight be aring exercise Last Documented On 9 2:11PM ; [facility] Patient Education: Daily morris cium and vitamin D Last Documented On 8 1:00PM ; [facility] Patient Education: weight be aring exercise Last Documented On 8 1:00PM ; [facility] Patient Education: Daily morris cium and vitamin D Last Documented On 7 11:07AM ; [facility] Patient Education: weight be aring exercise Last Documented On 7 11:07AM ; [facility] Hydrochlorothiazide 12.5 MG Oral Capsule (Medication) Last Documented On 7 11:14AM ; [facility] Patient Education: Daily morris cium and vitamin D Last Documented On 6 9:34AM ; [facility] Patient Education: weight be aring exercise Last Documented On 6 9:34AM ; [facility] INFORMED CONSENT DISCUSSION: Endometrial biopsy was discussed in detail including discomfort, insufficient specimen with need to repeat test, and rare incidence of uterine perforation. Patient expressed understanding of the above and consented to the procedure Last Documented On 5 1:32PM ; [facility] Patient Education: Daily morris cium and vitamin D Last Documented On 4 2:05PM ; [facility] Patient Education: weight be aring exercise Last Documented On 4 2:05PM ; [facility] Patient Education: Daily morris cium and vitamin D Last Documented On 3 10:13AM ; [facility] Patient Education: weight be aring exercise Last Documented On 3 10:13AM ; [facility] Patient Education: calcium a nd vitamin D BID Last Documented On 1 9:57AM ; [facility] Patient Education: Daily morris cium and vitamin D Last Documented On 0 1:54PM ; [facility] Patient Education: weight be aring exercise Last Documented On 0 1:54PM ; [facility] Medical Equipment - Implanted Devices Includes: Current and historical Devices No Medical Equipment Recorded Medications Includes: Current and historical Medications Current Medications (continue as prescribed) Zoloft 100MG Oral Tablet 11/24/2018 Provider: Diagnosis: Last Documented On 11/24/2018 3:11PM By DAVY MENG ; [facility] hydroCHLOROthiazide 12.5 MG CAPS 07/06/2014 Provider : Diagnosis: Last Documented On 07/06/2014 1:36PM By DAVY MENG ; [facility] Xanax 0.25 MG OR TABS 07/06/2014 Provider: Diagnosis: Last Documented On 07/06/2014 1:37PM By DAVY MENG ; [facility] Metoprolol Tartrate 25 MG OR TABS 10/27/2013 Provide r: Diagnosis: Last Documented On 10/27/2013 2:13PM By DAVY MENG ; [facility] Synthroid 175 MCG OR TABS 10/05/2009 Provider: Diagnosis: Last Documented On 10/05/2009 1:56PM By DAVY MENG ; [facility] Medications Administered Includes: Administered Medications in patient's chart No Administered Medications Recorded Results Includes: Results from 09/02/2023 through 09/01/2024 No Results Recorded For Specified Dates History of Present Illness History of Present Illness not supported for this document type No History of Present Illness Recorded Social History Description Last Updated Alcohol use occ 11/28/2019 Last Documented On 0 9:57AM ; [facility] Non-smoker 11/28/2019 Last Documented On 0 9:57AM ; [facility] Not using drugs 11/28/2019 Last Documented On 0 9:57AM ; [facility] Social history changed 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 11/28/2019 Last Documented On 0 9:57AM ; [facility] Smoking status : Former smoker 0 Last Documented On 0 9:57AM ; [facility] Zoroastrian: Evangelical 11/10/2016 Last Documented On 7 11:21AM ; [facility] Uatsdin affiliation 11/10/2016 Last Documented On 7 11:21AM ; [facility] Procedures and Surgical History Surgical History Last Updated History of tubal ligation 11/10/2016 Last Documented On 7 11:21AM ; [facility] Surgical / procedural history thyroid-re moved whole thyroid 11/10/2016 Last Documented On 7 11:21AM ; [facility] Medical History Includes: Medical History in patient's chart Description Last Updated No recent change in medical history 01/2020 Last Documented On 0 9:57AM ; [facility] Sexually active not currently S.A 2019 Last Documented On 0 9:57AM ; [facility] History of complete colonoscopy 8 11/28/2019 Last Documented On 0 9:57AM ; [facility] History of Pap smear done 11/24/201801/2020 Last Documented On 0 9:57AM ; [facility] History of screening mammogram was perfo rmed 10/28/2018 11/28/2019 Last Documented On 0 9:57AM ; [facility] Result: normal 11/28/2019 Last Documented On 0 9:57AM ; [facility] Result: normal 11/28/2019 Last Documented On 0 9:57AM ; [facility] section 11/19/2017 Last Documented On 8 1:22PM ; [facility] History of thyroid disorder throid remov ed 11/19/2017 Last Documented On 8 1:22PM ; [facility] 3 11/10/2016 Last Documented On 7 11:21AM ; [facility] History of benign essential hypertension 11/10/2016 Last Documented On 7 11:21AM ; [facility] LMP: 2013 11/10/2016 Last Documented On 7 11:21AM ; [facility] Para 3 11/10/2016 Last Documented On 7 11:21AM ; [facility] Previous hospitalizations TH REE C-SECTIONS,THYROID REMOVED IN 1994,TUBAL LIGATION [place] 199811/10/2016 Last Documented On 7 11:21AM ; [facility] Family History Includes: Family History in patient's chart Description Last Updated Family history unchanged 11/28/2019 Last Documented On 0 9:57AM ; [facility] Maternal grandmother's histo ry of malignant female breast neoplasm maternal grandma 11/28/2019 Last Documented On 0 9:57AM ; [facility] Paternal grandfather's history of diabet es mellitus paternal grandpa 11/28/2019 Last Documented On 0 9:57AM ; [facility] Paternal history of family history of he art disease father 11/28/2019 Last Documented On 0 9:57AM ; [facility] father-throat ca 11/24/2018 Last Documented On 9 3:22PM ; [facility] Heart disease father 10/10/2010 Last Documented On 1 9:57AM ; [facility] Family history of diabetes mellitus hernandez rnal grandpa 10/05/2009 Last Documented On 0 2:16PM ; [facility] Family history of malignant female breas t neoplasm maternal grandma 10/05/2009 Last Documented On 0 2:16PM ; [facility] Review of Systems Review of Systems not supported for this document type No Review of Systems Recorded Mental Status No Mental Status Recorded Functional Status No Functional Status Recorded Physical Exam Physical Exam not supported for this document type No Physical Exam Recorded Allergies Includes: Active, inactive, and resolved Allergies No Known Allergies Insurance Includes: Active Insurance Policies Plan Name Member ID Group # Subscriber Relationship Effect bonnie Dates 1 - [facility] [id number] MICHAEL FUNK Self Clinical Notes Includes: Signed Clinical Notes starting from 07/11/2022 No Clinical Notes Recorded
--- OUTSIDE RECORDS SUMMARY | 2024-09-01 13:33 | XMS_ITS | Clinical Summary ---
Author Organization [facility] Address [address] [place] [address] Phone Care Team Providers Care Mechanical Laboratory Technician Name Role Phone LENNY AREVALO MD Unavailable [phone] DANIELLA SCHNEIDER PA-C Primary Care Provider [phone] DANIELLA HERNANDEZ MD Unavailable [phone] Reason for Visit and Chief Complaint gynecologic annual exam - The Chief Complaint is: Annual Problems Includes: Problems addressed during this encounter and other active Problems All Visits Onset Date Resolved Date Provider Condition S tatus FAM HX-DIABETES MELLITUS 10/05/2009 YEMI LAYNE NP-BC Active Last Documented On 10/05/2009 1:58PM ; [facility] Note: paternal grandfathere FAMILY HX-BREAST MALIG 10/05/2009 YEMI LAYNE NP-BC Active Last Documented On 10/05/2009 1:59PM ; [facility] Note: maternal grandmother HYPERTENSION NOS 10/05/2009 YEMI JOINER NP-BC Active Last Documented On 0 1:59PM ; [facility] HYPOTHYROIDISM NOS 10/05/2009 YEMI LAYNE N P-BC Active Last Documented On 11/28/2019 9:57AM ; [facility] Note: thyroidectomy - s/p thyroid cancer Plan of Treatment - Follow-up visit 1 year or as needed - Last Documented On 11/19/2017 1:22PM ; [facility] - Clinical summary provided to patient - Last Documented On 11/19/2017 1:22PM ; [facility] Instructions to patient Instructions for patient : B reast Self Exam discussed Last Documented On 8 1:00PM ; [facility] Lose weight Last Documented On 8 1:00PM ; [facility] Colonoscopy Handout given to patient Last Documented On 8 1:00PM ; [facility] Education and Decision Aids were provided during visit for: Patient Education: Daily morris cium and vitamin D Last Documented On 8 1:00PM ; [facility] Patient Education: weight be aring exercise Last Documented On 8 1:00PM ; [facility] Assessments Includes: Assessments from this encounter Findings - NORMAL FEMALE EXAM - Last Documented On 11/19/2017 1:22PM ; [facility] Instructions Includes: Instructions from this encounter Instructions to patient Instructions for patient : B reast Self Exam discussed Last Documented On 8 1:00PM ; [facility] Lose weight Last Documented On 8 1:00PM ; [facility] Colonoscopy Handout given to patient Last Documented On 8 1:00PM ; [facility] Education and Decision Aids were provided during visit for: Patient Education: Daily morris cium and vitamin D Last Documented On 8 1:00PM ; [facility] Patient Education: weight be aring exercise Last Documented On 8 1:00PM ; [facility] Medical Equipment - Implanted Devices Includes: Current Devices No Medical Equipment Recorded Medications Includes: Medications discussed during this encounter and other current Medications Current Medications (continue as prescribed) Zoloft 100MG Oral Tablet 11/24/2018 Provider: Diagnosis: Last Documented On 11/24/2018 3:11PM By DAVY MENG ; [facility] hydroCHLOROthiazide 12.5 MG CAPS 07/06/2014 Provider : Diagnosis: Last Documented On 07/06/2014 1:36PM By DAVY MENG ; [facility] Xanax 0.25 MG OR TABS 07/06/2014 Provider: Diagnosis: Last Documented On 07/06/2014 1:37PM By DAVY MENG ; [facility] Metoprolol Tartrate 25 MG OR TABS 10/27/2013 Provide r: Diagnosis: Last Documented On 10/27/2013 2:13PM By DAVY MENG ; [facility] Synthroid 175 MCG OR TABS 10/05/2009 Provider: Diagnosis: Last Documented On 10/05/2009 1:56PM By DAVY MENG ; [facility] Medications Administered Includes: Administered Medications from this encounter No Administered Medications Recorded Vital Signs Includes: Vital Signs from this encounter Vital Name 11/19/2017 01:07P 11/19/2017 01: 00P Height (in) 68 Blood Pressure Sitting L 130/70 BP Cuff Size Large Weight (lb) 209 Last Documented: On 11/19/2017 1:07PM ; [facility] On 11/19/2017 1:07PM ; [facility] Results Includes: Results discussed during this encounter No Results Recorded For Specified Dates History of Present Illness Includes: History of Present Illness from this encounter POLO FUNK is a 57 year old female. - Medication list reviewed - PRIMARY CARE PROVIDER : Dr Hernandez - Menopause has occurred Social History Description Last Updated Social history changed pt lost her son in an accident 11/19/2017 Last Documented On 8 1:22PM ; [facility] Alcohol use occ 11/19/2017 Last Documented On 8 1:22PM ; [facility] Non-smoker 11/19/2017 Last Documented On 8 1:22PM ; [facility] Not using drugs 11/19/2017 Last Documented On 8 1:22PM ; [facility] Smoking status : Former smoker 8 Last Documented On 8 1:22PM ; [facility] Taoist: Mormonism 11/10/2016 Last Documented On 8 12:58PM ; [facility] Faith affiliation 11/10/2016 Last Documented On 8 12:58PM ; [facility] Procedures and Surgical History Includes: Procedures from this encounter Procedures Code Diagnosis Performing Provider Service L ocation Service Date low fat diet Last Documented On 8 1:00PM ; [facility] normal history of Pap smear of cervix Last Documented On 8 1:09PM ; [facility] Cervical Pap Smear performed Q0091 Last Documented On 8 1:00PM ; [facility] Surgical History Last Updated History of tubal ligation 11/10/2016 Last Documented On 8 12:58PM ; [facility] Surgical / procedural history thyroid-re moved whole thyroid 11/10/2016 Last Documented On 8 12:58PM ; [facility] Medical History Includes: Medical History addressed during this encounter Description Last Updated Result: normal @[facility] 11/19/2017 Last Documented On 8 1:22PM ; [facility] section 11/19/2017 Last Documented On 8 1:22PM ; [facility] History of thyroid disorder throid remov ed 11/19/2017 Last Documented On 8 1:22PM ; [facility] No recent change in medical history 10/22 Last Documented On 8 1:22PM ; [facility] History of complete colonoscopy 08/2017 @ [facility] 11/19/2017 Last Documented On 8 1:22PM ; [facility] History of screening mammogram was perfo rmed 06/201711/19/2017 Last Documented On 8 1:22PM ; [facility] Not sexually active 11/19/2017 Last Documented On 8 1:22PM ; [facility] History of Pap smear done 11/10/201610/22 Last Documented On 8 1:22PM ; [facility] Result: normal 11/19/2017 Last Documented On 8 1:22PM ; [facility] 3 11/10/2016 Last Documented On 8 12:58PM ; [facility] History of benign essential hypertension 11/10/2016 Last Documented On 8 12:58PM ; [facility] LMP: 201211/10/2016 Last Documented On 8 12:58PM ; [facility] Para 3 11/10/2016 Last Documented On 8 12:58PM ; [facility] Previous hospitalizations TH REE C-SECTIONS,THYROID REMOVED IN 1994,TUBAL LIGATION [place] 199811/10/2016 Last Documented On 8 12:58PM ; [facility] Family History Includes: Family History addressed during this encounter Description Last Updated Family history unchanged 11/19/2017 Last Documented On 8 1:22PM ; [facility] Maternal grandmother's histo ry of malignant female breast neoplasm maternal grandma 11/19/2017 Last Documented On 8 1:22PM ; [facility] Maternal history of hypertension parents 11/19/2017 Last Documented On 8 1:22PM ; [facility] Paternal grandfather's history of diabet es mellitus paternal grandpa 11/19/2017 Last Documented On 8 1:22PM ; [facility] Paternal history of family history of he art disease father 11/19/2017 Last Documented On 8 1:22PM ; [facility] Review of Systems Includes: Review of Systems [...] Location Date Check-In Time Check-Out Time Diagnosis ANNUAL BOTTLER HELPER EXAM YEMI LAYNE [facility] FRONT DESK OFFICER 11/20/19 18 12:51PM 1:21PM Normal Female Exam Insurance Includes: Active Insurance Policies Plan Name Member ID Group # Subscriber Relationship Effect bonnie Dates 1 - [facility] [id number] MICHAEL FUNK Self Clinical Notes Includes: Clinical Notes from this encounter No Clinical Notes Recorded
--- OUTSIDE RECORDS SUMMARY | 2024-09-01 13:33 | XMS_ITS | Referral Summary ---
Author Organization [facility] Address [address] [place] [address] Care Team Providers Care Account Specialist Name Role Phone Shravan Padilla Primary Care Provider [phone] Rafat Carmichael MD Unavailable [phone] Allergies No known active allergies Medications hydroCHLOROthia zide (HYDRODIURIL) 25 mg tablet TAKE 1 TABLET EVERY DAY 30 tablet 11 8 Active ALPRAZolam (XANAX) 1 mg tabletIndicatio ns:anxiety Take 1 tablet (1 mg total) by mouth nightly as needed for anxiety. 30 tablet 1 8 Active metoprolol (LOPRESSOR) 25 mg tablet Take 1 tablet (25 mg total) by mouth 2 (two) times a day. 60 tablet 11 8 Active disulfiram (ANTABUSE) 250 mg tablet Take 1 tablet (250 mg total) by mouth daily 3 Active folic acid (FOLVITE) 1 mg tablet Take 1 tablet (1,000 mcg total) by mouth daily Active naltrexone (DEPADE) 50 mg tablet 1 Active sertraline (ZOLOFT) 100 mg tablet Take 1 tablet (100 mg total) by mouth daily Active inhalational spacing device (Aerochamber MV) spacerIndicatio ns:Bronchitis Use with albuterol inhaler 1 each 3 Active Additional Information Patient not taking.Reported on 04/19/2024 levothyroxine (SYNTHROID) 25 mcg tablet Take 1 tablet (25 mcg total) by mouth daily 4 Active albuterol HFA (PROVENTIL HFA,VENTOLIN HFA,PROAIR HFA) 90 mcg/actuation inhalerIndicati ons:Bacterial URI Inhale 2 puffs every 6 (six) hours as needed for wheezing 3 each 4 4 11/04/19 25 Active Additional Information Patient not taking.Reported on 04/19/2024 Active Problems Problem Noted Date Diagnosed Date Hemoptysis 12/13/2021 Dysphagia 12/05/2021 Overview (12/05/2021): Added automatically from request for surgery [id number] Encounter for screening colonoscopy 06/28/2021 Overview (06/28/2021): Added automatically from request for surgery [id number] Postoperative hypothyroidism 10/26/2017 Primary insomnia 10/26/2017 Generalized anxiety disorder 10/26/2017 Essential hypertension 09/22/2017 BMI 31.0-31.9,adult 08/06/2017 Assessment & Plan (08/06/2017 10:51 AM LIME BOILER): Recommended patient to continue to increase heart healthy diet with adequate fruits, vegetables, and plenty of water along with mild-moderate daily exercise as tolerated. Resolved Problems Problem Noted Date Diagnosed Date Resolved Date Cat bite of hand 08/06/2017 09/22/2017 Assessment & Plan (08/06/2017 11:02 AM LIME BOILER): Augmentin prescribed to take twice daily for 10 day course as prescribed also a tetanus vaccination, Tdap, booster was given in office today as last vaccination was in 2008. Close monitoring outpatient there is any opening of any of the close wounds at this time, fevers, discharge I advised follow up in our office indicating need for additional management. Certainly taking antibiotic with food was advised along with probiotics [id number] as well. Need for prophylactic vaccin ation or inoculation against diphtheria and tetanus 08/06/2017 09/22/2017 Assessment & Plan (08/06/2017 11:02 AM LIME BOILER): Tdap vaccination provided office today due to acute cat scratch and bite Bereavement 01/20/2017 09/22/2017 Assessment & Plan (02/03/2017 1:26 PM CDT): Continues to have a hard time coping with the loss of her son. I have strongly encouraged her to seek out a counselor for additional psychotherapy. She is now agreeable. Referral will be arranged she also intends to check with her 4 year to see if they have an Employee assistance program in place for a psychiatric services. I would like to see her back in 1 month for follow-up. She is agreeable. Appointment to be scheduled prior to leaving the office. Of course, she was encouraged to reach out to me in the interim with any additional questions, concerns, change in, worsening, or non improvement in condition. Assessment & Plan (01/20/2017 5:37 PM CDT): Patient's main concern today is lack of sleep. I recommended Ativan 0.5 mg at bedtime. She may use 1/2 a tablet to 1/2 tablet daily as needed for anxiety/panic attacks as well. She declines the need for Psychiatry or counseling. However, she was agreeable to return for close follow-up. We scheduled her follow-up visit for 2 weeks. But she is going to contact me before then with any change in, worsening, or non improvement of condition. Or, if she just wants to talk. She verbalized understanding and was in agreement with the plan of care. Benign hypertension 06/30/2016 09/23/19 18 Overview (09/25/2016): BENIGN HYPERTENSION Depression 11/05/2013 09/22/2017 Overview (09/26/2016): DEPRESSIVE DISORDER NEC Assessment & Plan (02/03/2017 1:28 PM CDT): Patient is now agreeable to proceed with daily medication for her anxiety and depression. She states that she resume her sertraline 50 mg once daily about 4 days ago. She has not had any ill side effect. We are going to continue her on this medication at current dose and frequency. I sent a new prescription to the pharmacy. I would like to see her back in a month to evaluate her response to medication. She will be seeing a counselor in the interim as well. Anxiety state 11/05/2013 10/26/2017 Overview (09/26/2016): ANXIETY STATE NOS Assessment & Plan (02/03/2017 1:27 PM CDT): Patient has found prior prescription for Ativan to be ineffective. Historically she has had a nice response to Xanax. Will place her back on the Xanax. An extensive conversation regarding dose, use, potential side effect of medication and addictive component distress. She verbalized understanding. Script was renewed and consistent with prior scripts. Immunizations Immunization Administration Dates Next Due Influenza, Quadrivalent, Split, Intramuscular Influenza, Trivalent, IM (MDV) 03/22/2012,2010 Tdap 08/06/2017,03/12/2009 Social History Tobacco Use Types Packs/Day Years Used Date Smoking Tobacco: Former Smokeless Tobacco: Never Tobacco Cessation:Counseling Given: Not Answered Comments:Smoking History Packs/day: 0.4 Packs Alcohol Use Standard Drinks/Week Comments Yes 0 (1 standard drink = 0.6 oz pur e alcohol) AUDIT-C Answer Date Recorded Q1: How often do you have a drink containing alcohol? 4 or more times a week 12/12/2021 Q2: How many drinks containi ng alcohol do you have on a typical day when you are drinking? 5 or 6 Q3: How often do you have si x or more drinks on one occasion? Weekly 12/12/2021 Comments No Sex and Gender Information Value Date Recorded Sex Assigned at Not on file Legal Sex Female 2:01 PM LIME BOILER Gender Identity Not on file Sexual Orientation Not on file Last Filed Vital Signs Vital Sign Reading Time Taken Comments Blood Pressure 145/79 04/19/2024 10:01 AM CDT Pulse 84 04/19/2024 10:01 AM CDT Temperature 36.3 C (97.3 F) 11/04/2023 10:55 AM CDT Respiratory Rate 18 04/19/2024 10:01 AM CDT Oxygen Saturation 97% 04/19/2024 10:01 AM CDT Inhaled Oxygen Concentration - - Weight 106.6 kg (235 lb) 04/19/2024 10:01 AM CDT Height 172.7 cm (5' 7.99 ) 04/19/2024 10:01 AM C DT Body Mass Index 35.74 04/19/2024 10:01 AM CDT Plan of Treatment Not on file Procedures Procedure Name Priority Date/Time Associated Diagnosis Comments COLONOSCOPY 11/22/2021 7:57 AM CDT SCREENING MAMMOGRAM BILATERAL W RADHA Schedule Routine, Read Routine (OP Routine) 09/01/2017 10:41 AM CDT Encounter for screening mammogram for malignant neoplasm of breast HEPATITIS C SCREENING Routine 07/15/2016 DEXA SCAN Routine 01/10/2011 from Last 3 Months or Most Recently Relevant to Health Maintenance Results * COLONOSCOPY (11/22/2021 7:57 AM CDT) Anatomical Region Laterality Modality Other Narrative Procedure Note Enrico Faith MD - 11/22/2021 7:57 AM CDT [facility] Patient Name: Keya Arboleda Procedure Date: 11/22/2021 7:57 AM Date of : 1960 Admit Type: Outpatient Age: 61 Gender: Female Attending MD: Enrico Faith M.D. Room: [facility] ENDOSCOPY ROOM 2 Note Status: Finalized Patient Profile: Refer to note in patient chart for documentation of history and physical. Procedure: Colonoscopy Indications: Screening for colorectal malignant neoplasm, Last colonoscopy: July 2010 Referring MD: JUAN Lawson Providers: Enrico Faith M.D. Impression: - Hemorrhoids found on perianal exam. - The entire examined colon is normal. - No specimens collected. Recommendation: - Discharge patient to home. - Resume previous diet. - Continue present medications. - Repeat colonoscopy in 10 years for screening purposes. - Return to primary care physician as previously scheduled. Medicines: Propofol per Anesthesia Complications: No immediate complications. Estimated Blood Loss: Estimated blood loss: none. Procedure: Pre-Anesthesia Assessment: - This assessment was completed [Time ofAssessment] prior to the administration of sedation. The benefits, risks and alternatives of theprocedure and sedation were discussed and informed consentwas obtained. All questions were answered. Please referto the signed informed consent document in the medical record. The bowel preparation used was Miralax via single dose instruction. The bowel preparation used was bisacodyl tablets via single dose instruction.The scope was passed under direct vision. TheColonoscope [id number] was introduced through the anus and advanced to the the cecum, identified by appendiceal orifice and ileocecal valve. The colonoscopy was performed without difficulty. The patient tolerated the procedure well. The qualityof the bowel preparation was excellent. The ileocecal valve, appendiceal orifice, and rectum were photographed. Findings: Hemorrhoids were found on perianal exam. The colon (entire examined portion) appeared normal. Electronically signed by Enrico Faith M.D. Enrico Faith M.D. 11/22/2021 9:13:38 AM Number of Addenda: 0 Note Initiated On: 11/22/2021 7:57 AM Procedure Code(s): --- Professional --- G0121, Colorectal cancer screening; colonoscopy on individual not meeting criteria for high risk Diagnosis Code(s): --- Professional --- K64.9, Unspecified hemorrhoids Z12.11, Encounter for screening for malignant neoplasm of colon CPT copyright 2020 [employer]. All rights reserved. The codes documented in this report are preliminary and upon child welfare director reviewmay be revised to meet current compliance requirements. Recognized by the [employer] for promoting quality in endoscopy Enrico Faith MD ENDOSCOPY PROCEDURES Final Re sult * Screening Mammogram Bilateral W Radha (09/01/2017 10:41 AM CDT) Anatomical Region Laterality Modality Breast Bilateral Mammography Impressions 09/01/2017 11:32 AM CDT 1. BENIGN FINDINGS. 2. ANNUAL FOLLOW-UP RECOMMENDED. BI-RADS 2 Electronically signed by: Manfred Garcia 09/01/2017 11:32 AM CDT SCREENING MAMMOGRAM BILATERAL W RADHA HISTORY: Encounter for screening mammogram for malignant neoplasm of breast. TECHNIQUE: 2 views of each breast were obtained with bilateral breast tomosynthesis. COMPARISON: 07/08/2016. FINDINGS: Scattered parenchymal densities bilaterally. No suspicious mass or calcification is seen to suggest mammographic evidence of malignancy. Benign calcifications are present. Digital technology was employed plus computer aided detection software (R2) was utilized in interpretation of these images. This facility utilizes a reminder system to notify patient's of yearly mammograms. Shravan Hernandez MD IMG MAMMO PROCEDURES Final Res ult * HEPATITIS C SCREENING (07/15/2016) HEP C Normal Comment:Negative Historical Provider HEALTH MAINTENANCE Final Result * DEXA SCAN (01/10/2011) DEXA Scan Normal Historical Provider HEALTH MAINTENANCE Final Result from Last 3 Months or Most Recently Relevant to Health Maintenance Insurance [facility] Member Subscriber Plan / Payer (Ef fective 2017-Present) Name:Keya Arboleda R Relation to Subscriber:Self Name:Keya Arboleda Payer ID:[id number] (NAIC) Type:MEDICAID RISK OTHER Address: [place] [id number] Advance Directives For more information, please contact: [phone] * Full Code (Latest Code Status on File) Date Activated Date Inactivated Comments 12/13/2021 10:51 AM 12/13/2021 4:47 PM * Full Code Date Activated Date Inactivated Comments 12/13/2021 10:51 AM 12/13/2021 10:51 AM * Full Code Date Activated Date Inactivated Comments 11/22/2021 8:00 AM 11/22/2021 2:09 PM * Full Code Date Activated Date Inactivated Comments 11/22/2021 8:00 AM 11/22/2021 8:00 AM Care Teams Account Specialist Relationship Specialty Start Date End Date Shravan Padilla PA [address] [place] [address] PCP - General 10/21/21 Rafat Carmichael MD [address] [address] Referring Physician Dermatology 04/19/24
--- OUTSIDE RECORDS SUMMARY | 2024-09-01 13:33 | XMS_ITS | Clinical Summary ---
Author Organization [facility] Address [address] [place] [address] Care Team Providers Care Grading Machine Feeder Name Role Phone Shravan Padilla Primary Care Provider [phone] Rafat Carmichael MD Unavailable [phone] Allergies No known active allergies Medications hydroCHLOROthia [...] (12/05/2021): Added automatically from request for surgery [id number] Encounter for screening colonoscopy 06/28/2021 Overview (06/28/2021): Added automatically from request for surgery [id number] Postoperative hypothyroidism 10/26/2017 Primary insomnia 10/26/2017 Generalized anxiety disorder 10/26/2017 Essential hypertension 09/22/2017 BMI 31.0-31.9,adult 08/06/2017 Assessment & Plan (08/06/2017 10:51 AM COPS): Recommended patient to continue to increase heart healthy diet with adequate fruits, vegetables, and plenty of water along with mild-moderate daily exercise as tolerated. Resolved Problems Problem Noted Date Diagnosed Date Resolved Date Cat bite of hand 08/06/2017 09/22/2017 Assessment & Plan (08/06/2017 11:02 AM COPS): Augmentin prescribed to take twice daily for [...] with food was advised along with probiotics [id number] as well. Need for prophylactic vaccin ation or inoculation against diphtheria and tetanus 08/06/2017 09/22/2017 Assessment & Plan (08/06/2017 11:02 AM COPS): Tdap vaccination provided office today due to [...] Influenza, Trivalent, IM (MDV) 03/22/2012,2010 Tdap 08/06/2017,03/12/2009 Surgical History Surgery Date Site/Laterality Comments THYROIDECTOMY Thyroidectomy SECTION section TUBAL LIGATION Bilateral tubal ligation COLONOSCOPY 07/23/2010 - 08/19/2010 Medical History Medical History Date Comments Malignant neoplasm of thyroid gland (HCC) Cancer, thyroid Hypertension Hypertension Dysphagia Hypothyroidism Hemoptysis Family History Medical History Relation Name Comments Heart disease Father Heart disease; Throat cancer Father Cancer -throat ; Breast cancer Maternal Grandmother Cancer -breast; Other Other 1 Family history of Cancer, throat; Hypertension Other 2 Family history of Hypertension; Breast cancer Other 3 Family history of Cancer, breast; Relation Name Status Comments Father Maternal Grandmother Other 1 Other 2 Other 3 Social History Tobacco Use Types Packs/Day Years [...] on file Legal Sex Female 2:01 PM COPS Gender Identity Not on file Sexual Orientation Not on file Obstetrics History Last Filed Vital Signs Vital Sign Reading [...] 04/19/2024 10:01 AM CDT Plan of Treatment Health Maintenance Due Date Last Done Comments Cervical Cancer Screening 1960 Hepatitis B Screening 1979 Regular Well Visit/Exam 18-64 1979 Osteoporosis Screening-Bone Density Scan 01/10/2013 01/10/2011 Zoster Vaccine (2 of 3) 02/11/2017 12/17/2016 Depression Screening 10/26/2018 10/26/2017, 09/22/2017, 09/07/2017, Additional history exists Influenza Vaccine (#1) 2024 , 05/22/2021, 06/08/2020, Additional history exists Breast Cancer Screening-Mammogram 08/03/2024 08/03/2023, 08/03/2023, 07/23/2022, Additional history exists DTaP/Tdap/Td Vaccine (3 - Td or Tdap) 08/06/2027 08/06/2017, 03/12/2009 Colon Cancer Screening-Colonoscopy 11/23/2031 11/22/2021, 09/16/2017, 08/06/2010, Additional history exists Hepatitis C Screening Completed 07/15/2016, 017 Colon Cancer Screening-CT Colonography Discontinued 11/22/2021, 09/16/2017, 08/06/2010, Additional history exists Colon Cancer Screening-DNA Stool Discontinued 11/22/2021, 09/16/2017, 08/06/2010, Additional history exists Colon Cancer Screening-FIT Discontinued 11/22, 09/16/2017, 08/06/2010, Additional history exists Colon Cancer Screening-Sigmoidoscopy Discontinued 11/22/2021, 09/16/2017, 08/06/2010, Additional history exists Pneumococcal vaccine <65 Aged Out No longer eligible based on patient's age to complete this topic Procedures Procedure Name Priority Date/Time Associated Diagnosis Comments COLONOSCOPY 11/22/2021 7:57 AM CDT SCREENING MAMMOGRAM BILATERAL W RADHA Schedule Routine, Read Routine (OP Routine) 09/01/2017 10:41 AM CDT Encounter for screening mammogram for malignant neoplasm of breast HM HEPATITIS C SCREENING Routine 07/15/2016 DEXA SCAN Routine 01/10/2011 from Last 3 Months or Most Recently Relevant to Health Maintenance Results * COLONOSCOPY (11/22/2021 7:57 AM CDT) Anatomical Region Laterality Modality Other Narrative Procedure Note Enrico Faith MD - 11/22/2021 7:[address] [facility] Patient Name: Keya Arboleda Procedure Date: 11/22/2021 7:57 AM Date of : 1960 Admit Type: Outpatient Age: 61 Gender: Female Attending MD: Enrico Faith M.D. Room: [facility] 2 Note Status: Finalized Patient [...] scope was passed under direct vision. TheColonoscope [id number] was introduced through the anus and advanced [...] malignant neoplasm of colon CPT copyright 2020 [employer]. All rights reserved. The codes documented in this report are preliminary and upon top knitter reviewmay be revised to meet current compliance requirements. Recognized by the [employer] for promoting quality [...] SCREENING (07/15/2016) HEP C Normal Comment:Negative Historical [facility] [employer] Final Result * DEXA SCAN (01/10/2011) DEXA Scan Normal Historical [employer] [facility] Final Result from Last 3 Months or Most Recently Relevant to Health Maintenance Insurance Advance Directives For more information, please contact: [phone] * Full Code (Latest Code Status on File) Date Activated Date Inactivated Comments 12/13/2021 10:51 AM 12/13/2021 4:47 PM * Full Code Date Activated Date Inactivated Comments 12/13/2021 10:51 AM 12/13/2021 10:51 AM * Full Code Date Activated Date Inactivated Comments 11/22/2021 8:00 AM 11/22/2021 2:09 PM * Full Code Date Activated Date Inactivated Comments 11/22/2021 8:00 AM 11/22/2021 8:00 AM Care Teams Grading Machine Feeder Relationship Specialty Start Date End Date Shravan Padilla PA [address] [place] [address] PCP - General 10/21/21 Rafat Carmichael MD [address] [address] Referring Physician Dermatology 04/19/24
--- OUTSIDE RECORDS SUMMARY | 2024-09-01 13:33 | XMS_ITS | Clinical Summary ---
Author Organization [facility] Address [address] [place] [address] Phone Care Team Providers Care Track Grinder Operator Name Role Phone LENNY AREVALO MD Unavailable [phone] DANIELLA SCHNEIDER PA-C Primary Care Provider [phone] DANIELLA HERNANDEZ MD Unavailable [phone] Reason for Visit and Chief Complaint The Chief Complaint is: Annual Problems Includes: Problems addressed during this encounter and other active Problems All Visits Onset Date Resolved Date Provider Condition S tatus FAM HX-DIABETES MELLITUS 10/05/2009 YEMI LAYNE NP-BC Active Last Documented On 10/05/2009 1:58PM ; [facility] Note: paternal grandfathere FAMILY HX-BREAST MALIG 10/05/2009 YEMI LYANE NP-BC Active Last Documented On 10/05/2009 1:59PM ; [facility] Note: maternal grandmother HYPERTENSION NOS 10/05/2009 YEMI SAENZ NS WHNP-BC Active Last Documented On 0 1:59PM ; [facility] HYPOTHYROIDISM NOS 10/05/2009 YEMI LAYNE N P-BC Active Last Documented On 11/28/2019 9:57AM ; [facility] Note: thyroidectomy - s/p thyroid cancer Plan of Treatment - Follow-up visit 1 year or as needed - Last Documented On 11/10/2016 11:21AM ; [facility] - Clinical summary provided to patient - Last Documented On 11/10/2016 11:21AM ; [facility] Instructions to patient Instructions for patient : B reast Self Exam discussed Last Documented On 7 11:07AM ; [facility] Lose weight Last Documented On 7 11:08AM ; [facility] Colonoscopy Handout given to patient Last Documented On 7 11:08AM ; [facility] Education and Decision Aids were provided during visit for: Patient Education: Daily morris cium and vitamin D Last Documented On 7 11:07AM ; [facility] Patient Education: weight be aring exercise Last Documented On 7 11:07AM ; [facility] Hydrochlorothiazide 12.5 MG Oral Capsule (Medication) Last Documented On 7 11:14AM ; [facility] Assessments Includes: Assessments from this encounter Findings - NORMAL FEMALE EXAM - Last Documented On 11/10/2016 11:21AM ; [facility] - Screening Malig. Neoplasm Rectum - Last Documented On 11/10/2016 11:21AM ; [facility] Instructions Includes: Instructions from this encounter Instructions to patient Instructions for patient : B reast Self Exam discussed Last Documented On 7 11:07AM ; [facility] Lose weight Last Documented On 7 11:08AM ; [facility] Colonoscopy Handout given to patient Last Documented On 7 11:08AM ; [facility] Education and Decision Aids were provided during visit for: Patient Education: Daily morris cium and vitamin D Last Documented On 7 11:07AM ; [facility] Patient Education: weight be aring exercise Last Documented On 7 11:07AM ; [facility] Hydrochlorothiazide 12.5 MG Oral Capsule (Medication) Last Documented On 7 11:14AM ; [facility] Medical Equipment - Implanted Devices Includes: Current Devices No Medical Equipment Recorded Medications Includes: Medications discussed during this encounter and other current Medications Current Medications (continue as prescribed) Zoloft 100MG Oral Tablet 11/24/2018 Provider: Diagnosis: Last Documented On 11/24/2018 3:11PM By DAVY MENG ; [facility] hydroCHLOROthiazide 12.5 MG CAPS 07/06/2014 Provider : Diagnosis: Last Documented On 07/06/2014 1:36PM By DAVY MENG ; [facility] Xanax 0.25 MG OR TABS 07/06/2014 Provider: Diagnosis: Last Documented On 07/06/2014 1:37PM By DAVY MENG ; [facility] Metoprolol Tartrate 25 MG OR TABS 10/27/2013 Provide r: Diagnosis: Last Documented On 10/27/2013 2:13PM By DAVY MENG ; [facility] Synthroid 175 MCG OR TABS 10/05/2009 Provider: Diagnosis: Last Documented On 10/05/2009 1:56PM By DAVY MENG ; [facility] Medications Administered Includes: Administered Medications from this encounter No Administered Medications Recorded Vital Signs Includes: Vital Signs from this encounter Vital Name 11/10/2016 11:10A Blood Pressure Sitting L 118/80 BP Cuff Size Large Height (in) 68 Weight (lb) 202 Body Mass Index (kg/m2) 30.7 Body Surface Area (m2) 2.1 Last Documented: On 11/10/2016 11:15A M ; [facility] Results Includes: Results discussed during this encounter SUREPATH PAP AND HPV mRNA E6/E7 [employer] Ordered by YEMI WEBB on 10/20 Collected: 11/05/2015 Reported: 11/09/19 16 08:25 Last Documented On 6 10:14AM ; [facility] Reviewed by YEMI SUERO on 11/09/2015; All test results are final unless otherwise noted. HPV mRNA E6/E7, SUREPATH VIAL Not Detected (NOT DETECTED) N (Normal) Last Documented On 6 10:14AM ; [facility] Note: This test was performed using the APTIMA HPV Assay ([employer]This assay detects E6/E7 viral messenger RNA (mRNA) from 14high-risk HPV types (16,18,31,33,35,39,45,51,52,56,58,59,66,68).The analytical performance characteristics ofthis assay, when used to test SurePath specimens,have been determined by [employer] SOURCE: Cervix, Endocervix N (Normal) Last Documented On 6 10:14AM ; [facility] CLINICAL INFORMATION: Information not provided N (Normal) Last Documented On 6 10:14AM ; [facility] LMP: 2009 N (Normal) Last Documented On 6 10:14AM ; [facility] PREV. PAP: 2013 N (Normal) Last Documented On 6 10:14AM ; [facility] PREV. BX: H/O COLPO N (Normal) Last Documented On 6 10:14AM ; [facility] STATEMENT OF ADEQUACY: Satisfactory for evaluation. Endocervical/transformation zone component present. N (Normal) Last Documented On 6 10:14AM ; [facility] GENERAL CATEGORIZATION: EPITHELIAL CELL ABNORMALITY A (Abnormal) Last Documented On 6 10:14AM ; [facility] INTERPRETATION/RESULT: Atypical Squamous Cells of Undetermined Significance (ASC-US) A (Abnormal) Last Documented On 6 10:14AM ; [facility] COMMENT: Suggest clinical correlation and follow-up as clinically appropriate Rare atypical cells present N (Normal) Last Documented On 6 10:14AM ; [facility] VASCULAR RADIOLOGIST: SHARRI FARAH(ASCP) CT screening location: [address] [place] [address] N (Normal) Last Documented On 6 10:14AM ; [facility] PATHOLOGIST: Suhas Bolden M.D., Board Certified in Anatomic Pathology and Cytopathology. (electronic signature) N (Normal) Last Documented On 6 10:14AM ; [facility] History of Present Illness Includes: History of Present Illness from this encounter POLO FUNK is a 56 year old female. - Medication list reviewed - PRIMARY CARE PROVIDER : Dr. Hernandez Social History Description Last Updated Smoking status : Former smoker 7 Last Documented On 7 11:21AM ; [facility] Episcopalian: Temple 11/10/2016 Last Documented On 7 11:21AM ; [facility] [employer]ar[employer] affiliation 11/10/2016 Last Documented On 7 11:21AM ; [facility] Procedures and Surgical History Includes: Procedures from this encounter Procedures Code Diagnosis Performing Provider Service L ocation Service Date low fat diet Last Documented On 7 11:08AM ; [facility] fecal occult blood test was negative 74140 Last Documented On 7 11:07AM ; [facility] Cervical Pap Smear performed [id number] Last Documented On 7 11:08AM ; [facility] Surgical History Last Updated History of tubal ligation 11/10/2016 Last Documented On 7 11:21AM ; [facility] Surgical / procedural history thyroid-re moved whole thyroid 11/10/2016 Last Documented On 7 11:21AM ; [facility] Medical History Includes: Medical History addressed during this encounter Description Last Updated Not sexually active not sexually active x2 years 11/10/2016 Last Documented On 7 11:21AM ; [facility] History of a DEXA of the lateral lumbar spine was performed 01/10/2011 11/10/2016 Last Documented On 7 11:21AM ; [facility] History of complete colonoscopy 2010 Last Documented On 7 11:21AM ; [facility] History of Pap smear done 11/05/201510/21 Last Documented On 7 11:21AM ; [facility] History of screening mammogram was perfo rmed 07/08/2016 11/10/2016 Last Documented On 7 11:21AM ; [facility] Result: abnormal ASCUS HPV- 11/10/2016 Last Documented On 7 11:21AM ; [facility] Result: normal 11/10/2016 Last Documented On 7 11:21AM ; [facility] 3 11/10/2016 Last Documented On 7 11:21AM ; [facility] History of benign essential hypertension 11/10/2016 Last Documented On 7 11:21AM ; [facility] LMP: 201211/10/2016 Last Documented On 7 11:21AM ; [facility] Para 3 11/10/2016 Last Documented On 7 11:21AM ; [facility] Previous hospitalizations [facility] C-SECTIONS,THYROID REMOVED IN 1994,TUBAL LIGATION [place] 199811/10/2016 Last Documented On 7 11:21AM ; [facility] Family History Includes: Family History addressed during this encounter No Family History Recorded Review of Systems Includes: Review of Systems [...] Location Date Check-In Time Check-Out Time Diagnosis 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 Neoplasm Rectum,Normal Female Exam Insurance Includes: Active Insurance Policies Plan Name Member ID Group # Subscriber Relationship Effect bonnie Dates 1 - [facility] [id number] MICHAEL FUNK Self Clinical Notes Includes: Clinical Notes from this encounter No Clinical Notes Recorded
--- OUTSIDE RECORDS SUMMARY | 2024-09-01 13:33 | XMS_ITS ---
Care Plan - [facility] Created on: September 01, 2024 MICHAEL FUNK : 1960 Sex: Female Author Organization [facility] Address [address] [place] [address] Phone Care Team Providers Care Retort Furnace Helper Name Role Phone LENNY AREVALO MD Unavailable [phone] DANIELLA SCHNEIDER PA-C Primary Care Provider [phone] DANIELLA AJ MD Unavailable [phone]
--- OUTSIDE RECORDS SUMMARY | 2024-09-01 13:34 | XMS_ITS | Clinical Summary ---
Author Organization [facility] Address [address] [place] [address] Phone Care Team Providers Care Water Filter Cleaner Name Role Phone LENNY AREVALO MD Unavailable [phone] DANIELLA SCHNEIDER PA-C Primary Care Provider [phone] DANIELLA HERNANDEZ MD Unavailable [phone] Reason for Visit and Chief Complaint gynecologic annual exam - The Chief Complaint is: Annual Problems Includes: Problems addressed during this encounter and other active Problems All Visits Onset Date Resolved Date Provider Condition S tatus FAM HX-DIABETES MELLITUS 10/05/2009 YEMI LAYNE NP-BC Active Last Documented On 10/05/2009 1:58PM ; [facility] Note: paternal grandfathere FAMILY HX-BREAST MALIG 10/05/2009 YEMI LAYNE NP-BC Active Last Documented On 10/05/2009 1:59PM ; [facility] Note: maternal grandmother HYPERTENSION NOS 10/05/2009 YEMI JOINER NP-BC Active Last Documented On 0 1:59PM ; [facility] HYPOTHYROIDISM NOS 10/05/2009 YEMI LAYNE N P-BC Active Last Documented On 11/28/2019 9:57AM ; [facility] Note: thyroidectomy - s/p thyroid cancer Plan of Treatment - Follow-up visit 1 year or as needed - Last Documented On 11/05/2015 9:58AM ; [facility] - Clinical summary provided to patient - Last Documented On 11/05/2015 9:58AM ; [facility] Instructions to patient Instructions for patient : B reast Self Exam discussed Last Documented On 6 9:34AM ; [facility] Lose weight Last Documented On 6 9:34AM ; [facility] Colonoscopy Handout given to patient Last Documented On 6 9:34AM ; [facility] Education and Decision Aids were provided during visit for: Patient Education: Daily morris cium and vitamin D Last Documented On 6 9:34AM ; [facility] Patient Education: weight be aring exercise Last Documented On 6 9:34AM ; [facility] Assessments Includes: Assessments from this encounter Findings - NORMAL FEMALE EXAM - Last Documented On 11/05/2015 9:58AM ; [facility] - Screening Malig. Neoplasm Rectum - Last Documented On 11/05/2015 9:58AM ; [facility] Instructions Includes: Instructions from this encounter Instructions to patient Instructions for patient : B reast Self Exam discussed Last Documented On 6 9:34AM ; [facility] Lose weight Last Documented On 6 9:34AM ; [facility] Colonoscopy Handout given to patient Last Documented On 6 9:34AM ; [facility] Education and Decision Aids were provided during visit for: Patient Education: Daily morris cium and vitamin D Last Documented On 6 9:34AM ; [facility] Patient Education: weight be aring exercise Last Documented On 6 9:34AM ; [facility] Medical Equipment - Implanted Devices Includes: Current Devices No Medical Equipment Recorded Medications Includes: Medications discussed during this encounter and other current Medications Current Medications (continue as prescribed) Zoloft 100MG Oral Tablet 11/24/2018 Provider: Diagnosis: Last Documented On 11/24/2018 3:11PM By DAVY MENG ; [facility] hydroCHLOROthiazide 12.5 MG CAPS 07/06/2014 Provider : Diagnosis: Last Documented On 07/06/2014 1:36PM By DAVY MENG ; [facility] Xanax 0.25 MG OR TABS 07/06/2014 Provider: Diagnosis: Last Documented On 07/06/2014 1:37PM By DAVY MENG ; [facility] Metoprolol Tartrate 25 MG OR TABS 10/27/2013 Provide r: Diagnosis: Last Documented On 10/27/2013 2:13PM By DAVY MENG ; [facility] Synthroid 175 MCG OR TABS 10/05/2009 Provider: Diagnosis: Last Documented On 10/05/2009 1:56PM By DAVY MENG ; [facility] Medications Administered Includes: Administered Medications from this encounter No Administered Medications Recorded Vital Signs Includes: Vital Signs from this encounter Vital Name 11/05/2015 09:36A Blood Pressure Sitting L 130/66 BP Cuff Size Large Height (in) 68 Weight (lb) 204 Body Mass Index (kg/m2) 31.0 Body Surface Area (m2) 2.1 Last Documented: On 11/05/2015 9:42AM ; [facility] Results Includes: Results discussed during this encounter No Results Recorded For Specified Dates History of Present Illness Includes: History of Present Illness from this encounter POLO FUNK is a 55 year old female. - Medication list reviewed - PRIMARY CARE PROVIDER : Dr Hernandez - Menopause has occurred Social History Description Last Updated Religious: Scientology 11/10/2016 Last Documented On 6 9:33AM ; [facility] Muslim affiliation 11/10/2016 Last Documented On 6 9:33AM ; [facility] Sexually active with 0 partners in the l ast year 11/05/2015 Last Documented On 6 9:58AM ; [facility] Alcohol use occ 11/05/2015 Last Documented On 6 9:58AM ; [facility] Non-smoker 11/05/2015 Last Documented On 6 9:58AM ; [facility] Not using drugs 11/05/2015 Last Documented On 6 9:58AM ; [facility] Social history unchanged 11/05/2015 Last Documented On 6 9:58AM ; [facility] Smoking status : Former smoker 6 Last Documented On 6 9:58AM ; [facility] Procedures and Surgical History Includes: Procedures from this encounter Procedures Code Diagnosis Performing Provider Service L ocation Service Date low fat diet Last Documented On 6 9:34AM ; [facility] fecal occult blood test was negative 40811 Last Documented On 6 9:34AM ; [facility] history of abnormal Pap smear of cervix h/o colpo Last Documented On 6 9:46AM ; [facility] Cervical Pap Smear performed Q0091 Last Documented On 6 9:34AM ; [facility] Surgical History Last Updated History of tubal ligation 11/10/2016 Last Documented On 6 9:33AM ; [facility] Surgical / procedural history thyroid-re moved whole thyroid 11/10/2016 Last Documented On 6 9:33AM ; [facility] Medical History Includes: Medical History addressed during this encounter Description Last Updated 3 11/10/2016 Last Documented On 6 9:33AM ; [facility] History of benign essential hypertension 11/10/2016 Last Documented On 6 9:33AM ; [facility] LMP: 2013 11/10/2016 Last Documented On 6 9:33AM ; [facility] Para 3 11/10/2016 Last Documented On 6 9:33AM ; [facility] Previous hospitalizations TH REE C-SECTIONS,THYROID REMOVED IN 1994,TUBAL LIGATION [place] 199811/10/2016 Last Documented On 6 9:33AM ; [facility] section 11/05/2015 Last Documented On 6 9:58AM ; [facility] History of thyroid disorder removed 15 y ears ago-thyroid ca 11/05/2015 Last Documented On 6 9:58AM ; [facility] No recent change in medical history 10/20 Last Documented On 6 9:58AM ; [facility] History of screening mammogram was perfo rmed 07/09/2015 11/05/2015 Last Documented On 6 9:58AM ; [facility] Sexually active 11/05/2015 Last Documented On 6 9:58AM ; [facility] History of a DEXA of the lateral lumbar spine was performed 01/10/2011 wnl 11/05/2015 Last Documented On 6 9:58AM ; [facility] History of complete colonoscopy 2011 rep eat in 10 years 11/05/2015 Last Documented On 6 9:58AM ; [facility] History of Pap smear done 06/28/201210/20 Last Documented On 6 9:58AM ; [facility] Result: normal 11/05/2015 Last Documented On 6 9:58AM ; [facility] Family History Includes: Family History addressed during this encounter Description Last Updated Family history unchanged 11/05/2015 Last Documented On 6 9:58AM ; [facility] Fraternal history of family history of h eart disease father 11/05/2015 Last Documented On 6 9:58AM ; [facility] Maternal grandmother's histo ry of malignant female breast neoplasm maternal grandma 11/05/2015 Last Documented On 6 9:58AM ; [facility] Paternal grandfather's history of diabet es mellitus paternal grandpa 11/05/2015 Last Documented On 6 9:58AM ; [facility] Sororal history of hypertension brother 11/05/2015 Last Documented On 6 9:58AM ; [facility] Review of Systems Includes: Review of Systems [...] Date Check-In Time Check-Out Time Diagnosis ANNUAL CLERK GENERAL OFFICE EXAM YEMI LAYNE [facility] 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 Neoplasm Rectum,Normal Female Exam Insurance Includes: Active Insurance Policies Plan Name Member ID Group # Subscriber Relationship Effect bonnie Dates 1 - [facility] [id number] MICHAEL FUNK Self Clinical Notes Includes: Clinical Notes from this encounter No Clinical Notes Recorded
--- OUTSIDE RECORDS SUMMARY | 2024-09-01 13:34 | XMS_ITS | Clinical Summary ---
Author Organization [facility] Address [address] [place] [address] Phone Care Team Providers Care Social Work Case Manager Name Role Phone LENNY AREVALO MD Unavailable [phone] DANIELLA SCHNEIDER PA-C Primary Care Provider [phone] DANIELLA AJ MD Unavailable [phone] Reason for Visit and Chief Complaint gynecologic annual exam - The Chief Complaint is: Annual Problems Includes: Problems addressed during this encounter and other active Problems All Visits Onset Date Resolved Date Provider Condition S tatus FAM HX-DIABETES MELLITUS 10/05/2009 YEMI LAYNE NP-BC Active Last Documented On 10/05/2009 1:58PM ; [facility] Note: paternal grandfathere FAMILY HX-BREAST MALIG 10/05/2009 YEMI LAYNE NP-BC Active Last Documented On 10/05/2009 1:59PM ; [facility] Note: maternal grandmother HYPERTENSION NOS 10/05/2009 YEMI JOINER NP-BC Active Last Documented On 0 1:59PM ; [facility] HYPOTHYROIDISM NOS 10/05/2009 YEMI LAYNE N P-BC Active Last Documented On 11/28/2019 9:57AM ; [facility] Note: thyroidectomy - s/p thyroid cancer Plan of Treatment - Follow-up visit 1 year or as needed - Last Documented On 11/24/2018 3:22PM ; [facility] - Clinical summary provided to patient - Last Documented On 11/24/2018 3:22PM ; [facility] Instructions to patient Instructions for patient : B reast Self Exam discussed Last Documented On 9 2:11PM ; [facility] Lose weight Last Documented On 9 2:12PM ; [facility] Colonoscopy Handout given to patient Last Documented On 9 2:12PM ; [facility] Education and Decision Aids were provided during visit for: Patient Education: Daily morris cium and vitamin D Last Documented On 9 2:11PM ; [facility] Patient Education: weight be aring exercise Last Documented On 9 2:11PM ; [facility] Assessments Includes: Assessments from this encounter Findings - NORMAL FEMALE EXAM - Last Documented On 11/24/2018 3:22PM ; [facility] - Screening Malig. Neoplasm Rectum - Last Documented On 11/24/2018 3:22PM ; [facility] Instructions Includes: Instructions from this encounter Instructions to patient Instructions for patient : B reast Self Exam discussed Last Documented On 9 2:11PM ; [facility] Lose weight Last Documented On 9 2:12PM ; [facility] Colonoscopy Handout given to patient Last Documented On 9 2:12PM ; [facility] Education and Decision Aids were provided during visit for: Patient Education: Daily morris cium and vitamin D Last Documented On 9 2:11PM ; [facility] Patient Education: weight be aring exercise Last Documented On 9 2:11PM ; [facility] Medical Equipment - Implanted Devices Includes: Current Devices No Medical Equipment Recorded Medications Includes: Medications discussed during this encounter and other current Medications Current Medications (continue as prescribed) Zoloft 100MG Oral Tablet 11/24/2018 Provider: Diagnosis: Last Documented On 11/24/2018 3:11PM By DAVY MENG ; [facility] hydroCHLOROthiazide 12.5 MG CAPS 07/06/2014 Provider : Diagnosis: Last Documented On 07/06/2014 1:36PM By DAVY MENG ; [facility] Xanax 0.25 MG OR TABS 07/06/2014 Provider: Diagnosis: Last Documented On 07/06/2014 1:37PM By DAVY MENG ; [facility] Metoprolol Tartrate 25 MG OR TABS 10/27/2013 Provide r: Diagnosis: Last Documented On 10/27/2013 2:13PM By DAVY MENG ; [facility] Synthroid 175 MCG OR TABS 10/05/2009 Provider: Diagnosis: Last Documented On 10/05/2009 1:56PM By DAVY MENG ; [facility] Medications Administered Includes: Administered Medications from this encounter No Administered Medications Recorded Vital Signs Includes: Vital Signs from this encounter Vital Name 11/24/2018 03:04P Blood Pressure Sitting L 118/64 BP Cuff Size Large Height (in) 68 Weight (lb) 219 Body Mass Index (kg/m2) 33.3 Body Surface Area (m2) 2.1 Last Documented: On 11/24/2018 3:08PM ; [facility] Results Includes: Results discussed during this encounter No Results Recorded For Specified Dates History of Present Illness Includes: History of Present Illness from this encounter POLO FUNK is a 58 year old female. - Medication list reviewed - PRIMARY CARE PROVIDER : Dr Gonzalez - Menopause has occurred Social History Description Last Updated Alcohol use occ 11/24/2018 Last Documented On 9 3:22PM ; [facility] Non-smoker 11/24/2018 Last Documented On 9 3:22PM ; [facility] Not using drugs 11/24/2018 Last Documented On 9 3:22PM ; [facility] Social history unchanged 11/24/2018 Last Documented On 9 3:22PM ; [facility] Smoking status : Former smoker 9 Last Documented On 9 3:22PM ; [facility] Jewish: Protestant 11/10/2016 Last Documented On 9 3:01PM ; [facility] Mandaen affiliation 11/10/2016 Last Documented On 9 3:01PM ; [facility] Procedures and Surgical History Includes: Procedures from this encounter Procedures Code Diagnosis Performing Provider Service L ocation Service Date low fat diet Last Documented On 9 2:12PM ; [facility] fecal occult blood test was negative 54343 Last Documented On 9 2:11PM ; [facility] Cervical Pap Smear performed Q0091 Last Documented On 9 2:12PM ; [facility] Surgical History Last Updated History of tubal ligation 11/10/2016 Last Documented On 9 3:01PM ; [facility] Surgical / procedural history thyroid-re moved whole thyroid 11/10/2016 Last Documented On 9 3:01PM ; [facility] Medical History Includes: Medical History addressed during this encounter Description Last Updated No recent change in medical history 10/2018 Last Documented On 9 3:22PM ; [facility] History of screening mammogram was perfo rmed 10/201811/24/2018 Last Documented On 9 3:22PM ; [facility] Not sexually active 11/24/2018 Last Documented On 9 3:22PM ; [facility] Result: normal @[facility] 11/24/2018 Last Documented On 9 3:22PM ; [facility] History of a DXA of the lateral lumbar s pine was performed 01/10/2011 wnl 11/24/2018 Last Documented On 9 3:22PM ; [facility] History of complete colonoscopy 10/2018 Last Documented On 9 3:22PM ; [facility] History of Pap smear done 11/19/201710/2018 Last Documented On 9 3:22PM ; [facility] Result: normal 11/24/2018 Last Documented On 9 3:22PM ; [facility] section 11/19/2017 Last Documented On 9 3:01PM ; [facility] History of thyroid disorder throid remov ed 11/19/2017 Last Documented On 9 3:01PM ; [facility] 3 11/10/2016 Last Documented On 9 3:01PM ; [facility] History of benign essential hypertension 11/10/2016 Last Documented On 9 3:01PM ; [facility] LMP: 2013 11/10/2016 Last Documented On 9 3:01PM ; [facility] Para 3 11/10/2016 Last Documented On 9 3:01PM ; [facility] Previous hospitalizations TH REE C-SECTIONS,THYROID REMOVED IN 1994,TUBAL LIGATION [place] 199811/10/2016 Last Documented On 9 3:01PM ; [facility] Family History Includes: Family History addressed during this encounter Description Last Updated father-throat ca 11/24/2018 Last Documented On 9 3:22PM ; [facility] Family history unchanged 11/24/2018 Last Documented On 9 3:22PM ; [facility] Maternal grandmother's histo ry of malignant female breast neoplasm maternal grandma 11/24/2018 Last Documented On 9 3:22PM ; [facility] Paternal grandfather's history of diabet es mellitus paternal grandpa 11/24/2018 Last Documented On 9 3:22PM ; [facility] Paternal history of hypertension 019 Last Documented On 9 3:22PM ; [facility] Heart disease father 10/10/2010 Last Documented On 9 3:01PM ; [facility] Review of [...] Time Check-Out Time Diagnosis WELL 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 Neoplasm Rectum,Normal Female Exam Insurance Includes: Active Insurance Policies Plan Name Member ID Group # Subscriber Relationship Effect bonnie Dates 1 - [facility] [id number] MICHAEL FUNK Self Clinical Notes Includes: Clinical Notes from this encounter No Clinical Notes Recorded
--- OUTSIDE RECORDS SUMMARY | 2024-09-01 13:51 | XMS_ITS | Clinical Summary ---
Author Organization [facility] Address [address] [place] [address] Phone Care Team Providers Care Training Designer Name Role Phone LENNY AREVALO MD Unavailable [phone] DANIELLA SCHNEIDER PA-C Primary Care Provider [phone] DANIELLA HERNANDEZ MD Unavailable [phone] Reason for Visit and Chief Complaint gynecologic annual exam - The Chief Complaint is: Annual Problems Includes: Problems addressed during this encounter and other active Problems All Visits Onset Date Resolved Date Provider Condition S tatus FAM HX-DIABETES MELLITUS 10/05/2009 YEMI LAYNE NP-BC Active Last Documented On 10/05/2009 1:58PM ; [facility] Note: paternal grandfathere FAMILY HX-BREAST MALIG 10/05/2009 YEMI LAYNE NP-BC Active Last Documented On 10/05/2009 1:59PM ; [facility] Note: maternal grandmother HYPERTENSION NOS 10/05/2009 YEMI JOINER NP-BC Active Last Documented On 0 1:59PM ; [facility] HYPOTHYROIDISM NOS 10/05/2009 YEMI LAYNE N P-BC Active Last Documented On 11/28/2019 9:57AM ; [facility] Note: thyroidectomy - s/p thyroid cancer Plan of Treatment - Follow-up visit 1 year or as needed - Last Documented On 11/19/2017 1:22PM ; [facility] - Clinical summary provided to patient - Last Documented On 11/19/2017 1:22PM ; [facility] Instructions to patient Instructions for patient : B reast Self Exam discussed Last Documented On 8 1:00PM ; [facility] Lose weight Last Documented On 8 1:00PM ; [facility] Colonoscopy Handout given to patient Last Documented On 8 1:00PM ; [facility] Education and Decision Aids were provided during visit for: Patient Education: Daily morris cium and vitamin D Last Documented On 8 1:00PM ; [facility] Patient Education: weight be aring exercise Last Documented On 8 1:00PM ; [facility] Assessments Includes: Assessments from this encounter Findings - NORMAL FEMALE EXAM - Last Documented On 11/19/2017 1:22PM ; [facility] Instructions Includes: Instructions from this encounter Instructions to patient Instructions for patient : B reast Self Exam discussed Last Documented On 8 1:00PM ; [facility] Lose weight Last Documented On 8 1:00PM ; [facility] Colonoscopy Handout given to patient Last Documented On 8 1:00PM ; [facility] Education and Decision Aids were provided during visit for: Patient Education: Daily morris cium and vitamin D Last Documented On 8 1:00PM ; [facility] Patient Education: weight be aring exercise Last Documented On 8 1:00PM ; [facility] Medical Equipment - Implanted Devices Includes: Current Devices No Medical Equipment Recorded Medications Includes: Medications discussed during this encounter and other current Medications Current Medications (continue as prescribed) Zoloft 100MG Oral Tablet 11/24/2018 Provider: Diagnosis: Last Documented On 11/24/2018 3:11PM By DAVY MENG ; [facility] hydroCHLOROthiazide 12.5 MG CAPS 07/06/2014 Provider : Diagnosis: Last Documented On 07/06/2014 1:36PM By DAVY MENG ; [facility] Xanax 0.25 MG OR TABS 07/06/2014 Provider: Diagnosis: Last Documented On 07/06/2014 1:37PM By DAVY MENG ; [facility] Metoprolol Tartrate 25 MG OR TABS 10/27/2013 Provide r: Diagnosis: Last Documented On 10/27/2013 2:13PM By DAVY MENG ; [facility] Synthroid 175 MCG OR TABS 10/05/2009 Provider: Diagnosis: Last Documented On 10/05/2009 1:56PM By DAVY MENG ; [facility] Medications Administered Includes: Administered Medications from this encounter No Administered Medications Recorded Vital Signs Includes: Vital Signs from this encounter Vital Name 11/19/2017 01:07P 11/19/2017 01: 00P Height (in) 68 Blood Pressure Sitting L 130/70 BP Cuff Size Large Weight (lb) 209 Last Documented: On 11/19/2017 1:07PM ; [facility] On 11/19/2017 1:07PM ; [facility] Results Includes: Results discussed during this encounter [...] 11/19/2017 Last Documented On 8 1:22PM ; [facility] Alcohol use occ 11/19/2017 Last Documented On 8 1:22PM ; [facility] Non-smoker 11/19/2017 Last Documented On 8 1:22PM ; [facility] Not using drugs 11/19/2017 Last Documented On 8 1:22PM ; [facility] Smoking status : Former smoker 8 Last Documented On 8 1:22PM ; [facility] Adventist: Shinto 11/10/2016 Last Documented On 8 12:58PM ; [facility] Latter Day affiliation 11/10/2016 Last Documented On 8 12:58PM ; [facility] Procedures and Surgical History Includes: Procedures from this encounter Procedures Code Diagnosis Performing Provider Service L ocation Service Date low fat diet Last Documented On 8 1:00PM ; [facility] normal history of Pap smear of cervix Last Documented On 8 1:09PM ; [facility] Cervical Pap Smear performed [id number] Last Documented On 8 1:00PM ; [facility] Surgical History Last Updated History of tubal ligation 11/10/2016 Last Documented On 8 12:58PM ; [facility] Surgical / procedural history thyroid-re moved whole thyroid 11/10/2016 Last Documented On 8 12:58PM ; [facility] Medical History Includes: Medical History addressed during this encounter Description Last Updated Result: normal @[facility] 11/19/2017 Last Documented On 8 1:22PM ; [facility] section 11/19/2017 Last Documented On 8 1:22PM ; [facility] History of thyroid disorder throid remov ed 11/19/2017 Last Documented On 8 1:22PM ; [facility] No recent change in medical history 10/22 Last Documented On 8 1:22PM ; [facility] History of complete colonoscopy 08/2017 @ [facility] 11/19/2017 Last Documented On 8 1:22PM ; [facility] History of screening mammogram was perfo rmed 06/201711/19/2017 Last Documented On 8 1:22PM ; [facility] Not sexually active 11/19/2017 Last Documented On 8 1:22PM ; [facility] History of Pap smear done 11/10/201610/22 Last Documented On 8 1:22PM ; [facility] Result: normal 11/19/2017 Last Documented On 8 1:22PM ; [facility] 3 11/10/2016 Last Documented On 8 12:58PM ; [facility] History of benign essential hypertension 11/10/2016 Last Documented On 8 12:58PM ; [facility] LMP: 201211/10/2016 Last Documented On 8 12:58PM ; [facility] Para 3 11/10/2016 Last Documented On 8 12:58PM ; [facility] Previous hospitalizations TH REE C-SECTIONS,THYROID REMOVED IN 1994,TUBAL LIGATION [place] 199811/10/2016 Last Documented On 8 12:58PM ; [facility] Family History Includes: Family History addressed during this encounter Description Last Updated Family history unchanged 11/19/2017 Last Documented On 8 1:22PM ; [facility] Maternal grandmother's histo ry of malignant female breast neoplasm maternal grandma 11/19/2017 Last Documented On 8 1:22PM ; [facility] Maternal history of hypertension parents 11/19/2017 Last Documented On 8 1:22PM ; [facility] Paternal grandfather's history of diabet es mellitus paternal grandpa 11/19/2017 Last Documented On 8 1:22PM ; [facility] Paternal history of family history of he art disease father 11/19/2017 Last Documented On 8 1:22PM ; [facility] Review of Systems Includes: Review of Systems [...] Date Check-In Time Check-Out Time Diagnosis 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
--- OUTSIDE RECORDS SUMMARY | 2024-09-01 13:51 | XMS_ITS | Clinical Summary ---
Author Organization [facility] Address [address] [place] [address] Phone Care Team Providers Care Plastics Bench Mechanic Name Role Phone LENNY AREVALO MD Unavailable [phone] DANIELLA PADILLA PA-C Primary Care Provider [phone] DANIELLA AJ MD Unavailable [phone] Reason for Visit and Chief Complaint gynecologic annual exam - The Chief Complaint is: Annual Problems Includes: Problems addressed during this encounter and other active Problems All Visits Onset Date Resolved Date Provider Condition S tatus FAM HX-DIABETES MELLITUS 10/05/2009 YEMI LAYNE NP-BC Active Last Documented On 10/05/2009 1:58PM ; [facility] Note: paternal grandfathere FAMILY HX-BREAST MALIG 10/05/2009 YEMI LAYNE NP-BC Active Last Documented On 10/05/2009 1:59PM ; [facility] Note: maternal grandmother HYPERTENSION NOS 10/05/2009 YEMI WONGA NS NP-BC Active Last Documented On 0 1:59PM ; [facility] HYPOTHYROIDISM NOS 10/05/2009 YEMI LAYNE N P-BC Active Last Documented On 11/28/2019 9:57AM ; [facility] Note: thyroidectomy - s/p thyroid cancer Plan of Treatment - Follow-up visit 1 year or as needed - Last Documented On 11/28/2019 9:57AM ; [facility] - Clinical summary provided to patient - Last Documented On 11/28/2019 9:57AM ; [facility] Per new ASCCP guidelines, pap was deferred today. This was d/w pt. and pt. is agreeable to this plan. - Last Documented On 11/28/2019 9:57AM ; [facility] Pending Tests Order Diagnosis Results Due Ordering Juan J quesada Radiology @ other - *MAMMOGRAPHY SCREENING MAMMOGRAM Encntr screen mammogram for malignant neoplasm of breast 12/12/19 YEMI LAYNE [facility] Last Documented On 1 9:45AM ; [facility] Instructions to patient Instructions for patient : B reast Self Exam discussed Last Documented On 0 9:33AM ; [facility] Lose weight Last Documented On 0 9:34AM ; [facility] Education and Decision Aids were provided during visit for: Patient Education: Daily morris cium and vitamin D Last Documented On 0 9:33AM ; [facility] Patient Education: weight be aring exercise Last Documented On 0 9:33AM ; [facility] Assessments Includes: Assessments from this encounter Findings - NORMAL FEMALE EXAM [Z01.419 - Encounter for gynecological examination (general) (routine) without abnormal findings] - Last Documented On 11/28/2019 9:57AM ; [facility] - Screening Malig. Neoplasm Rectum [Z12.12 - Encounter for screening for malignant neoplasm of rectum] - Last Documented On 11/28/2019 9:57AM ; [facility] Instructions Includes: Instructions from this encounter Instructions to patient Instructions for patient : B reast Self Exam discussed Last Documented On 0 9:33AM ; [facility] Lose weight Last Documented On 0 9:34AM ; [facility] Education and Decision Aids were provided during visit for: Patient Education: Daily morris cium and vitamin D Last Documented On 0 9:33AM ; [facility] Patient Education: weight be aring exercise Last Documented On 0 9:33AM ; [facility] Medical Equipment - Implanted Devices Includes: Current Devices No Medical Equipment Recorded Medications Includes: Medications discussed during this encounter and other current Medications Current Medications (continue as prescribed) Zoloft 100MG Oral Tablet 11/24/2018 Provider: Diagnosis: Last Documented On 11/24/2018 3:11PM By DAVY MENG ; [facility] hydroCHLOROthiazide 12.5 MG CAPS 07/06/2014 Provider : Diagnosis: Last Documented On 07/06/2014 1:36PM By DAVY MENG ; [facility] Xanax 0.25 MG OR TABS 07/06/2014 Provider: Diagnosis: Last Documented On 07/06/2014 1:37PM By DAVY MENG ; [facility] Metoprolol Tartrate 25 MG OR TABS 10/27/2013 Provide r: Diagnosis: Last Documented On 10/27/2013 2:13PM By DAVY MENG ; [facility] Synthroid 175 MCG OR TABS 10/05/2009 Provider: Diagnosis: Last Documented On 10/05/2009 1:56PM By DAVY MENG ; [facility] Medications Administered Includes: Administered Medications from this encounter No Administered Medications Recorded Vital Signs Includes: Vital Signs from this encounter Vital Name 11/28/2019 09:48A 11/28/2019 09: 44A Blood Pressure Sitting L 110/70 BP Cuff Size Large Temp-Oral (F) 98 Height (in) 68 Weight (lb) 225 Body Mass Index (kg/m2) 34.2 Body Surface Area (m2) 2.1 Last Documented: On 11/28/2019 9:49AM ; [facility] On 11/28/2019 9:46AM ; [facility] Results Includes: Results discussed during this encounter THINPREP TIS AND HPV mRNA E6/E7 [employer] Ordered by YEMI WEBB on 10/2018 Collected: 11/24/2018 Reported: 12/01/19 19 07:43 Last Documented On 9 2:02PM ; [facility] Reviewed by YEMI SUERO on 11/30/2018; All test results are final unless otherwise noted. COMMENT See Note None Last Documented On 9 2:02PM ; [facility] Note: EXPLANATORY NOTE: The Pap is a [...] Documented On 9 2:02PM ; [facility] Note: This test was performed using the APTIMA HPV Assay ([employer]This assay detects E6/E7 viral messenger RNA (mRNA) from 14high-risk HPV types (16,18,31,33,35,39,45,51,52,56,58,59,66,68). The analytical performance characteristics ofthis assay have been determined by Arden Reed. The modifications have not beencleared or approved by the FDA. This assay hasbeen validated pursuant to the CLIA regulationsand is used for clinical purposes. SOURCE: Cervix, Endocervix N (Normal) Last Documented On 9 2:02PM ; [facility] CLINICAL INFORMATION: Routine exam N (Normal) Last Documented On 9 2:02PM ; [facility] LMP: PM N (Normal) Last Documented On 9 2:02PM ; [facility] PREV. PAP: 2018 N (Normal) Last Documented On 9 2:02PM ; [facility] PREV. BX: NONE N (Normal) Last Documented On 9 2:02PM ; [facility] STATEMENT OF ADEQUACY: Satisfactory for evaluation. Endocervical/transformation zone component present. N (Normal) Last Documented On 9 2:02PM ; [facility] INTERPRETATION/RESULT: Negative for intraepithelial lesion or malignancy. N (Normal) Last Documented On 9 2:02PM ; [facility] COMMENT: This Pap test has been evaluated with computer assisted technology. N (Normal) Last Documented On 9 2:02PM ; [facility] DEFENSE ATTORNEY: SHARRI MÉNDEZ(ASCP) CT screening location: [place] [address] [place] [address] N (Normal) Last Documented On 9 2:02PM ; [facility] History of Present Illness Includes: History of Present Illness from this encounter POLO FUNK is a 59 year old female. 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 11/28/2019 Last Documented On 0 9:57AM ; [facility] Smoking status : Former smoker 0 Last Documented On 0 9:57AM ; [facility] Mandaen: Quaker 11/10/2016 Last Documented On 0 9:43AM ; [facility] Latter Day affiliation 11/10/2016 Last Documented On 0 9:43AM ; [facility] Procedures and Surgical History Includes: Procedures from this encounter Procedures Code Diagnosis Performing Provider Service L ocation Service Date low fat diet Last Documented On 0 9:34AM ; [facility] fecal occult blood test was negative [id number] Last Documented On 0 9:33AM ; [facility] Surgical History Last Updated History of tubal ligation 11/10/2016 Last Documented On 0 9:43AM ; [facility] Surgical / procedural history thyroid-re moved whole thyroid 11/10/2016 Last Documented On 0 9:43AM ; [facility] Medical History Includes: Medical History addressed during this encounter Description Last Updated No recent change in medical history 01/2020 Last Documented On 0 9:57AM ; [facility] Sexually active not currently S.A 2019 Last Documented On 0 9:57AM ; [facility] History of complete colonoscopy 8 11/28/2019 Last Documented On 0 9:57AM ; [facility] History of Pap smear done 11/24/201801/2020 Last Documented On 0 9:57AM ; [facility] History of screening mammogram was perfo rmed 10/28/2018 11/28/2019 Last Documented On 0 9:57AM ; [facility] Result: normal 11/28/2019 Last Documented On 0 9:57AM ; [facility] Result: normal 11/28/2019 Last Documented On 0 9:57AM ; [facility] section 11/19/2017 Last Documented On 0 9:43AM ; [facility] History of thyroid disorder throid remov ed 11/19/2017 Last Documented On 0 9:43AM ; [facility] 3 11/10/2016 Last Documented On 0 9:43AM ; [facility] History of benign essential hypertension 11/10/2016 Last Documented On 0 9:43AM ; [facility] LMP: 2013 11/10/2016 Last Documented On 0 9:43AM ; [facility] Para 3 11/10/2016 Last Documented On 0 9:43AM ; [facility] Previous hospitalizations TH REE C-SECTIONS,THYROID REMOVED IN 1994,[place]UBAL LIGATION [place] 199811/10/2016 Last Documented On 0 9:43AM ; [facility] Family History Includes: Family History addressed during this encounter Description Last Updated Family history unchanged 11/28/2019 Last Documented On 0 9:57AM ; [facility] Maternal grandmother's histo ry of malignant female breast neoplasm maternal grandma 11/28/2019 Last Documented On 0 9:57AM ; [facility] Paternal grandfather's history of diabet es mellitus paternal grandpa 11/28/2019 Last Documented On 0 9:57AM ; [facility] Paternal history of family history of he art disease father 11/28/2019 Last Documented On 0 9:57AM ; [facility] father-throat ca 11/24/2018 Last Documented On 0 9:43AM ; [facility] Review of Systems Includes: Review of Systems [...] Check-Out Time Diagnosis WELL WOMAN EXAM YEMI [facility] 11/28/19 20 9:31AM 10:00AM Screening Malig. Neoplasm Rectum,Normal Female Exam Insurance Includes: Active Insurance Policies Plan Name Member ID Group # Subscriber Relationship Effect bonnie Dates 1 - [facility] [id number] MICHAEL FUNK Self Clinical Notes Includes: Clinical Notes from this encounter No Clinical Notes Recorded
--- OUTSIDE RECORDS SUMMARY | 2024-09-01 13:51 | XMS_ITS | Clinical Summary ---
Author Organization [facility] Address [address] [place] [address] Phone Care Team Providers Care Emergency Room Rn Name Role Phone LENNY AREVALO MD Unavailable [phone] DANIELLA SCHNEIDER PA-C Primary Care Provider [phone] DANIELLA HERNANDEZ MD Unavailable [phone] Reason for Visit and Chief Complaint The Chief Complaint is: Annual Problems Includes: Problems addressed during this encounter and other active Problems All Visits Onset Date Resolved Date Provider Condition S tatus FAM HX-DIABETES MELLITUS 10/05/2009 YEMI LAYNE NP-BC Active Last Documented On 10/05/2009 1:58PM ; [facility] Note: paternal grandfathere FAMILY HX-BREAST MALIG 10/05/2009 YEMI LAYNE NP-BC Active Last Documented On 10/05/2009 1:59PM ; [facility] Note: maternal grandmother HYPERTENSION NOS 10/05/2009 YEMI SAENZ NS WHNP-BC Active Last Documented On 0 1:59PM ; [facility] HYPOTHYROIDISM NOS 10/05/2009 YEMI LAYNE N P-BC Active Last Documented On 11/28/2019 9:57AM ; [facility] Note: thyroidectomy - s/p thyroid cancer Plan of Treatment - Follow-up visit 1 year or as needed - Last Documented On 11/10/2016 11:21AM ; [facility] - Clinical summary provided to patient - Last Documented On 11/10/2016 11:21AM ; [facility] Instructions to patient Instructions for patient : B reast Self Exam discussed Last Documented On 7 11:07AM ; [facility] Lose weight Last Documented On 7 11:08AM ; [facility] Colonoscopy Handout given to patient Last Documented On 7 11:08AM ; [facility] Education and Decision Aids were provided during visit for: Patient Education: Daily morris cium and vitamin D Last Documented On 7 11:07AM ; [facility] Patient Education: weight be aring exercise Last Documented On 7 11:07AM ; [facility] Hydrochlorothiazide 12.5 MG Oral Capsule (Medication) Last Documented On 7 11:14AM ; [facility] Assessments Includes: Assessments from this encounter Findings - NORMAL FEMALE EXAM - Last Documented On 11/10/2016 11:21AM ; [facility] - Screening Malig. Neoplasm Rectum - Last Documented On 11/10/2016 11:21AM ; [facility] Instructions Includes: Instructions from this encounter Instructions to patient Instructions for patient : B reast Self Exam discussed Last Documented On 7 11:07AM ; [facility] Lose weight Last Documented On 7 11:08AM ; [facility] Colonoscopy Handout given to patient Last Documented On 7 11:08AM ; [facility] Education and Decision Aids were provided during visit for: Patient Education: Daily morris cium and vitamin D Last Documented On 7 11:07AM ; [facility] Patient Education: weight be aring exercise Last Documented On 7 11:07AM ; [facility] Hydrochlorothiazide 12.5 MG Oral Capsule (Medication) Last Documented On 7 11:14AM ; [facility] Medical Equipment - Implanted Devices Includes: Current Devices No Medical Equipment Recorded Medications Includes: Medications discussed during this encounter and other current Medications Current Medications (continue as prescribed) Zoloft 100MG Oral Tablet 11/24/2018 Provider: Diagnosis: Last Documented On 11/24/2018 3:11PM By DAVY MENG ; [facility] hydroCHLOROthiazide 12.5 MG CAPS 07/06/2014 Provider : Diagnosis: Last Documented On 07/06/2014 1:36PM By DAVY MENG ; [facility] Xanax 0.25 MG OR TABS 07/06/2014 Provider: Diagnosis: Last Documented On 07/06/2014 1:37PM By DAVY MENG ; [facility] Metoprolol Tartrate 25 MG OR TABS 10/27/2013 Provide r: Diagnosis: Last Documented On 10/27/2013 2:13PM By DAVY MENG ; [facility] Synthroid 175 MCG OR TABS 10/05/2009 Provider: Diagnosis: Last Documented On 10/05/2009 1:56PM By DAVY MENG ; [facility] Medications Administered Includes: Administered Medications from this encounter No Administered Medications Recorded Vital Signs Includes: Vital Signs from this encounter Vital Name 11/10/2016 11:10A Blood Pressure Sitting L 118/80 BP Cuff Size Large Height (in) 68 Weight (lb) 202 Body Mass Index (kg/m2) 30.7 Body Surface Area (m2) 2.1 Last Documented: On 11/10/2016 11:15A M ; [facility] Results Includes: Results discussed during this encounter SUREPATH PAP AND HPV mRNA E6/E7 [employer] Ordered by YEMI WEBB on 10/20 Collected: 11/05/2015 Reported: 11/09/19 16 08:25 Last Documented On 6 10:14AM ; [facility] Reviewed by YEMI SUERO on 11/09/2015; All test results are final unless otherwise noted. HPV mRNA E6/E7, SUREPATH VIAL Not Detected (NOT DETECTED) N (Normal) Last Documented On 6 10:14AM ; [facility] Note: This test was performed using the APTIMA HPV Assay ([employer]This assay detects E6/E7 viral messenger RNA (mRNA) from 14high-risk HPV types (16,18,31,33,35,39,45,51,52,56,58,59,66,68).The analytical performance characteristics ofthis assay, when used to test SurePath specimens,have been determined by [employer] SOURCE: Cervix, Endocervix N (Normal) Last Documented On 6 10:14AM ; [facility] CLINICAL INFORMATION: Information not provided N (Normal) Last Documented On 6 10:14AM ; [facility] LMP: 2009 N (Normal) Last Documented On 6 10:14AM ; [facility] PREV. PAP: 2013 N (Normal) Last Documented On 6 10:14AM ; [facility] PREV. BX: H/O COLPO N (Normal) Last Documented On 6 10:14AM ; [facility] STATEMENT OF ADEQUACY: Satisfactory for evaluation. Endocervical/transformation zone component present. N (Normal) Last Documented On 6 10:14AM ; [facility] GENERAL CATEGORIZATION: EPITHELIAL CELL ABNORMALITY A (Abnormal) Last Documented On 6 10:14AM ; [facility] INTERPRETATION/RESULT: Atypical Squamous Cells of Undetermined Significance (ASC-US) A (Abnormal) Last Documented On 6 10:14AM ; [facility] COMMENT: Suggest clinical correlation and follow-up as clinically appropriate Rare atypical cells present N (Normal) Last Documented On 6 10:14AM ; [facility] TEMPERATURE REGULATOR PYROMETER: SHARRI FARAH(ASCP) CT screening location: [address] [place] [address] N (Normal) Last Documented On 6 10:14AM ; [facility] PATHOLOGIST: Suhas Bolden M.D., Board Certified in Anatomic Pathology and Cytopathology. (electronic signature) N (Normal) Last Documented On 6 10:14AM ; [facility] History of Present Illness Includes: History of Present Illness from this encounter POLO FUNK is a 56 year old female. - Medication list reviewed - PRIMARY CARE PROVIDER : Dr. Hernandez Social History Description Last Updated Smoking status : Former smoker 7 Last Documented On 7 11:21AM ; [facility] Yazdanism: Holiness 11/10/2016 Last Documented On 7 11:21AM ; [facility] Hoahaoism affiliation 11/10/2016 Last Documented On 7 11:21AM ; [facility] Procedures and Surgical History Includes: Procedures from this encounter Procedures Code Diagnosis Performing Provider Service L ocation Service Date low fat diet Last Documented On 7 11:08AM ; [facility] fecal occult blood test was negative [id number] Last Documented On 7 11:07AM ; [facility] Cervical Pap Smear performed [id number] Last Documented On 7 11:08AM ; [facility] Surgical History Last Updated History of tubal ligation 11/10/2016 Last Documented On 7 11:21AM ; [facility] Surgical / procedural history thyroid-re moved whole thyroid 11/10/2016 Last Documented On 7 11:21AM ; [facility] Medical History Includes: Medical History addressed during this encounter Description Last Updated Not sexually active not sexually active x2 years 11/10/2016 Last Documented On 7 11:21AM ; [facility] History of a DEXA of the lateral lumbar spine was performed 01/10/2011 11/10/2016 Last Documented On 7 11:21AM ; [facility] History of complete colonoscopy 2010 Last Documented On 7 11:21AM ; [facility] History of Pap smear done 11/05/201510/21 Last Documented On 7 11:21AM ; [facility] History of screening mammogram was perfo rmed 07/08/2016 11/10/2016 Last Documented On 7 11:21AM ; [facility] Result: abnormal ASCUS HPV- 11/10/2016 Last Documented On 7 11:21AM ; [facility] Result: normal 11/10/2016 Last Documented On 7 11:21AM ; [facility] 3 11/10/2016 Last Documented On 7 11:21AM ; [facility] History of benign essential hypertension 11/10/2016 Last Documented On 7 11:21AM ; [facility] LMP: 201211/10/2016 Last Documented On 7 11:21AM ; [facility] Para 3 11/10/2016 Last Documented On 7 11:21AM ; [facility] Previous hospitalizations [facility] C-SECTIONS,THYROID REMOVED IN 1994,TUBAL LIGATION [place] 199811/10/2016 Last Documented On 7 11:21AM ; [facility] Family History Includes: Family History addressed during [...] Location Date Check-In Time Check-Out Time 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 Neoplasm Rectum,Normal Female Exam Insurance Includes: Active Insurance Policies Plan Name Member ID Group # Subscriber Relationship Effect bonnie Dates 1 - [facility] [id number] MICHAEL FUNK Self Clinical Notes Includes: Clinical Notes from this encounter No Clinical Notes Recorded
--- OUTSIDE RECORDS SUMMARY | 2024-09-01 13:51 | XMS_ITS ---
Care Plan - [facility] Created on: September 01, 2024 MICHAEL FUNK : 1960 Sex: Female Author Organization [facility] Address [address] [place] [address] Phone Care Team Providers Care Interior Design Project Manager Name Role Phone LENNY AREVALO MD Unavailable [phone] DANIELLA SCHNEIDER PA-C Primary Care Provider [phone] DANIELLA AJ MD Unavailable [phone]
--- OUTSIDE RECORDS SUMMARY | 2024-09-01 13:52 | XMS_ITS ---
Author Organization [facility] Address [address] [place] [address] Phone Care Team Providers Care Information Technology Assistant Name Role Phone LENNY AREVALO MD Unavailable [phone] DANIELLA SCHNEIDER PA-C Primary Care Provider [phone] DANIELLA AJ MD Unavailable [phone] Problems Includes: Active, inactive, and resolved Problems All Visits Onset Date Resolved Date Provider Condition S tatus FAM HX-DIABETES MELLITUS 10/05/2009 YEMI LAYNE WHNP-BC Active Last Documented On 10/05/2009 1:58PM ; [facility] Note: paternal grandfathere FAMILY HX-BREAST MALIG 10/05/2009 YEMI LAYNE WHNP-BC Active Last Documented On 10/05/2009 1:59PM ; [facility] Note: maternal grandmother HYPERTENSION NOS 10/05/2009 YEMI JOINER WHNP-BC Active Last Documented On 0 1:59PM ; [facility] HYPOTHYROIDISM NOS 10/05/2009 YEMI LAYNE WHN P-BC Active Last Documented On 11/28/2019 9:57AM ; [facility] Note: thyroidectomy - s/p thyroid cancer Plan of Treatment Findings Encounter Date Ordered Clinical summary pro vided to patient WELL WOMAN EXAM with YEMI LAYNE WHNP-BC 11/28/2019 Last Documented On 0 9:57AM ; [facility] Ordered follow-up visit 1 ye ar or as needed WELL WOMAN EXAM with YEMI LAYNE WHNP-BC 11/28/2019 Last Documented On 0 9:57AM ; [facility] Ordered Clinical summary pro vided to patient WELL WOMAN EXAM with YEMI LAYNE WHNP-BC 11/24/2018 Last Documented On 9 3:22PM ; [facility] Ordered follow-up visit 1 ye ar or as needed WELL WOMAN EXAM with YEMI LAYNE NP-BC 11/24/2018 Last Documented On 9 3:22PM ; [facility] Ordered Clinical summary pro vided to patient ANNUAL RADIOGRAPHY TECHNICIAN EXAM with YEMI LAYNE NP-BC 11/19/2017 Last Documented On 8 1:22PM ; [facility] Ordered follow-up visit 1 ye ar or as needed ANNUAL RADIOGRAPHY TECHNICIAN EXAM with YEMI LAYNE NP-BC 11/19/2017 Last Documented On 8 1:22PM ; [facility] Ordered Clinical summary pro vided to patient TONNAGE COMPILATION CLERK EXAM with YEMI LAYNE NP-BC 11/10/2016 Last Documented On 7 11:21AM ; [facility] Ordered follow-up visit 1 ye ar or as needed TONNAGE COMPILATION CLERK EXAM with YEMI LAYNE NP-BC 11/10/2016 Last Documented On 7 11:21AM ; [facility] Ordered Clinical summary pro vided to patient ANNUAL RADIOGRAPHY TECHNICIAN EXAM with YEMI LAYNE NP-BC 11/05/2015 Last Documented On 6 9:58AM ; [facility] Ordered follow-up visit 1 ye ar or as needed ANNUAL RADIOGRAPHY TECHNICIAN EXAM with YEMI LAYNE NP-BC 11/05/2015 Last Documented On 6 9:58AM ; [facility] Advised to call for any recu rrence of post menopausal bleeding. All above results d/w pt. Will call with EMB results ENDOMETRIAL BIOPSY with YEMI LAYNE [facility] 07/06/2014 Last Documented On 5 1:51PM ; [facility] Ordered Clinical summary pro vided to patient ENDOMETRIAL BIOPSY with YEMI LAYNE NP-BC 07/06/2014 Last Documented On 5 1:51PM ; [facility] Ordered Clinical summary pro vided to patient ANNUAL RADIOGRAPHY TECHNICIAN EXAM with YEMI LAYNE NP-BC 10/27/2013 Last Documented On 4 2:23PM ; [facility] Ordered follow-up visit 1 ye ar or as needed ANNUAL RADIOGRAPHY TECHNICIAN EXAM with YEMI LAYNE [facility] 10/27/2013 Last Documented On 4 2:23PM ; [facility] Ordered Clinical summary pro vided to patient TONNAGE COMPILATION CLERK EXAM with YEMI LAYNE [facility]- 06/28/2012 Last Documented On 3 10:24AM ; [facility] Ordered follow-up visit 1 ye ar or as needed TONNAGE COMPILATION CLERK EXAM with YEMI LAYNE [facility]- 06/28/2012 Last Documented On 3 10:24AM ; [facility] Ordered follow-up visit 1 year or as needed TONNAGE COMPILATION CLERK EXAM with FLOR JOYNERDEMETRI 10/10/2010 Last Documented On 1 9:57AM ; [facility] Ordered follow-up visit 1 ye ar or as needed TONNAGE COMPILATION CLERK EXAM with YEMI LAYEN [facility] 10/05/2009 Last Documented On 0 2:16PM ; [facility] Instructions to patient Instructions for patient : B reast Self Exam discussed Last Documented On 0 9:33AM ; [facility] Lose weight Last Documented On 0 9:34AM ; [facility] Instructions for patient : B reast Self Exam discussed Last Documented On 9 2:11PM ; [facility] Lose weight Last Documented On 9 2:12PM ; [facility] Colonoscopy Handout given to patient Last Documented On 9 2:12PM ; [facility] Instructions for patient : B reast Self Exam discussed Last Documented On 8 1:00PM ; [facility] Lose weight Last Documented On 8 1:00PM ; [facility] Colonoscopy Handout given to patient Last Documented On 8 1:00PM ; [facility] Instructions for patient : B reast Self Exam discussed Last Documented On 7 11:07AM ; [facility] Lose weight Last Documented On 7 11:08AM ; [facility] Colonoscopy Handout given to patient Last Documented On 7 11:08AM ; [facility] Instructions for patient : B reast Self Exam discussed Last Documented On 6 9:34AM ; [facility] Lose weight Last Documented On 6 9:34AM ; [facility] Colonoscopy Handout given to patient Last Documented On 6 9:34AM ; [facility] Instructions for patient : B reast Self Exam discussed Last Documented On 4 2:05PM ; [facility] Lose weight Last Documented On 4 2:05PM ; [facility] Colonoscopy Handout given to patient Last Documented On 4 2:05PM ; [facility] Instructions for patient : B reast Self Exam discussed Last Documented On 3 10:13AM ; [facility] Lose weight Last Documented On 3 10:14AM ; [facility] Colonoscopy Handout given to patient Last Documented On 3 10:14AM ; [facility] Instructions for patient : B reast Self Exam discussed. Reviewed monthly self breast examination and technique Last Documented On 1 9:43AM ; [facility] Recommend diet and exercise at least 30 min three times per week Last Documented On 1 9:43AM ; [facility] Recommend preventative vacci nation including but not limited to influenza/flu vaccine, DTP, Rubella, Hepatitis B vaccination series Last Documented On 1 9:43AM ; [facility] Recommend annual pap smear e xamination or every three year if high risk hpv negative and 3 consecutive normal pap examination during preceding three years Last Documented On 1 9:43AM ; [facility] Recommend TSH, fasting gluco se, fasting lipid panel, CBC, BMP Last Documented On 1 9:43AM ; [facility] Recommend Calcium supplement ation and weight bearing exercise Last Documented On 1 9:43AM ; [facility] Instructions for patient : B reast Self Exam discussed Last Documented On 0 1:54PM ; [facility] Lose weight Last Documented On 0 1:54PM ; [facility] Education and Decision Aids were provided during visit for: Patient Education: Daily morris cium and vitamin D Last Documented On 0 9:33AM ; [facility] Patient Education: weight be aring exercise Last Documented On 0 9:33AM ; [facility] Patient Education: Daily morris cium and vitamin D Last Documented On 9 2:11PM ; [facility] Patient Education: weight be aring exercise Last Documented On 9 2:11PM ; [facility] Patient Education: Daily morris cium and vitamin D Last Documented On 8 1:00PM ; [facility] Patient Education: weight be aring exercise Last Documented On 8 1:00PM ; [facility] Patient Education: Daily morris cium and vitamin D Last Documented On 7 11:07AM ; [facility] Patient Education: weight be aring exercise Last Documented On 7 11:07AM ; [facility] Hydrochlorothiazide 12.5 MG Oral Capsule (Medication) Last Documented On 7 11:14AM ; [facility] Patient Education: Daily morris cium and vitamin D Last Documented On 6 9:34AM ; [facility] Patient Education: weight be aring exercise Last Documented On 6 9:34AM ; [facility] INFORMED CONSENT DISCUSSION: Endometrial biopsy was discussed in detail including discomfort, insufficient specimen with need to repeat test, and rare incidence of uterine perforation. Patient expressed understanding of the above and consented to the procedure Last Documented On 5 1:32PM ; [facility] Patient Education: Daily morris cium and vitamin D Last Documented On 4 2:05PM ; [facility] Patient Education: weight be aring exercise Last Documented On 4 2:05PM ; [facility] Patient Education: Daily morris cium and vitamin D Last Documented On 3 10:13AM ; [facility] Patient Education: weight be aring exercise Last Documented On 3 10:13AM ; [facility] Patient Education: calcium a nd vitamin D BID Last Documented On 1 9:57AM ; [facility] Patient Education: Daily morris cium and vitamin D Last Documented On 0 1:54PM ; [facility] Patient Education: weight be aring exercise Last Documented On 0 1:54PM ; [facility] Assessments Includes: Assessments for all patient encounters Findings Encounter Date NORMAL FEMALE EXAM WELL WOMAN EXAM with YEMIASHLEY LAYNE WHNP-BC 11/28/2019 Last Documented On 0 9:57AM ; [facility] Screening Malig. Neoplasm Rectum WELL WO MAN EXAM with YEMIASHLEY LAYNE WHNP-BC 11/28/2019 Last Documented On 0 9:57AM ; [facility] NORMAL FEMALE EXAM WELL WOMAN EXAM with YEMIASHLEY LAYNE WHNP-BC 11/24/2018 Last Documented On 9 3:22PM ; [facility] Screening Malig. Neoplasm Rectum WELL WO MAN EXAM with YEMIASHLEY LAYNE WHNP-BC 11/24/2018 Last Documented On 9 3:22PM ; [facility] NORMAL FEMALE EXAM ANNUAL RADIOGRAPHY TECHNICIAN EXAM with YEMI LAYNE WHNP-BC 11/19/2017 Last Documented On 8 1:22PM ; [facility] NORMAL FEMALE EXAM TONNAGE COMPILATION CLERK EXAM with YEMI LAYNE W HNP-BC 11/10/2016 Last Documented On 7 11:21AM ; [facility] Screening Malig. Neoplasm Rectum TONNAGE COMPILATION CLERK EXAM with Michelle LAYNE WHNP-BC 11/10/2016 Last Documented On 7 11:21AM ; [facility] NORMAL FEMALE EXAM ANNUAL RADIOGRAPHY TECHNICIAN EXAM with YEMI LAYNE WHNP-BC 11/05/2015 Last Documented On 6 9:58AM ; [facility] Screening Malig. Neoplasm Rectum ANNUAL RADIOGRAPHY TECHNICIAN EXAM with YEMIASHLEY LAYNE WHNP-BC 11/05/2015 Last Documented On 6 9:58AM ; [facility] Postmenopausal bleeding ENDOMETRIAL BIOPSY with YEMIASHLEY LAYNE WHNP-BC 07/06/2014 Last Documented On 5 1:51PM ; [facility] NORMAL FEMALE EXAM ANNUAL RADIOGRAPHY TECHNICIAN EXAM with YEMIASHLEY LAYNE WHNP-BC 10/27/2013 Last Documented On 4 2:23PM ; [facility] Screening Malig. Neoplasm Rectum ANNUAL RADIOGRAPHY TECHNICIAN EXAM with YEMI A LAYNE WHNP-BC 10/27/2013 Last Documented On 4 2:23PM ; [facility] NORMAL FEMALE EXAM TONNAGE COMPILATION CLERK EXAM with YEMIASHLEY LAYNE W HNP-BC 06/28/2012 Last Documented On 3 10:24AM ; [facility] Screening Malig. Neoplasm Rectum TONNAGE COMPILATION CLERK EXAM with Michelle LAYNE [facility]- 06/28/2012 Last Documented On 3 10:24AM ; [facility] NORMAL FEMALE EXAM TONNAGE COMPILATION CLERK EXAM with FLOR Slaughter 10/10/2010 Last Documented On 1 9:57AM ; [facility] Normal routine history and physical TONNAGE COMPILATION CLERK EXAM wit h YEMI LAYNE [facility]- 10/05/2009 Last Documented On 0 2:16PM ; [facility] Routine pelvic exam TONNAGE COMPILATION CLERK EXAM with YEMI LAYNE [facility]- 10/05/2009 Last Documented On 0 2:16PM ; [facility] Screening Malig. Neoplasm Rectum TONNAGE COMPILATION CLERK EXAM with Michelle LAYNE [facility] 10/05/2009 Last Documented On 0 2:16PM ; [facility] Instructions Includes: Instructions for all patient encounters Instructions to patient Instructions for patient : B reast Self Exam discussed Last Documented On 0 9:33AM ; [facility] Lose weight Last Documented On 0 9:34AM ; [facility] Instructions for patient : B reast Self Exam discussed Last Documented On 9 2:11PM ; [facility] Lose weight Last Documented On 9 2:12PM ; [facility] Colonoscopy Handout given to patient Last Documented On 9 2:12PM ; [facility] Instructions for patient : B reast Self Exam discussed Last Documented On 8 1:00PM ; [facility] Lose weight Last Documented On 8 1:00PM ; [facility] Colonoscopy Handout given to patient Last Documented On 8 1:00PM ; [facility] Instructions for patient : B reast Self Exam discussed Last Documented On 7 11:07AM ; [facility] Lose weight Last Documented On 7 11:08AM ; [facility] Colonoscopy Handout given to patient Last Documented On 7 11:08AM ; [facility] Instructions for patient : B reast Self Exam discussed Last Documented On 6 9:34AM ; [facility] Lose weight Last Documented On 6 9:34AM ; [facility] Colonoscopy Handout given to patient Last Documented On 6 9:34AM ; [facility] Instructions for patient : B reast Self Exam discussed Last Documented On 4 2:05PM ; [facility] Lose weight Last Documented On 4 2:05PM ; [facility] Colonoscopy Handout given to patient Last Documented On 4 2:05PM ; [facility] Instructions for patient : B reast Self Exam discussed Last Documented On 3 10:13AM ; [facility] Lose weight Last Documented On 3 10:14AM ; [facility] Colonoscopy Handout given to patient Last Documented On 3 10:14AM ; [facility] Instructions for patient : B reast Self Exam discussed. Reviewed monthly self breast examination and technique Last Documented On 1 9:43AM ; [facility] Recommend diet and exercise at least 30 min three times per week Last Documented On 1 9:43AM ; [facility] Recommend preventative vacci nation including but not limited to influenza/flu vaccine, DTP, Rubella, Hepatitis B vaccination series Last Documented On 1 9:43AM ; [facility] Recommend annual pap smear e xamination or every three year if high risk hpv negative and 3 consecutive normal pap examination during preceding three years Last Documented On 1 9:43AM ; [facility] Recommend TSH, fasting gluco se, fasting lipid panel, CBC, BMP Last Documented On 1 9:43AM ; [facility] Recommend Calcium supplement ation and weight bearing exercise Last Documented On 1 9:43AM ; [facility] Instructions for patient : B reast Self Exam discussed Last Documented On 0 1:54PM ; [facility] Lose weight Last Documented On 0 1:54PM ; [facility] Education and Decision Aids were provided during visit for: Patient Education: Daily morris cium and vitamin D Last Documented On 0 9:33AM ; [facility] Patient Education: weight be aring exercise Last Documented On 0 9:33AM ; [facility] Patient Education: Daily morris cium and vitamin D Last Documented On 9 2:11PM ; [facility] Patient Education: weight be aring exercise Last Documented On 9 2:11PM ; [facility] Patient Education: Daily morris cium and vitamin D Last Documented On 8 1:00PM ; [facility] Patient Education: weight be aring exercise Last Documented On 8 1:00PM ; [facility] Patient Education: Daily morris cium and vitamin D Last Documented On 7 11:07AM ; [facility] Patient Education: weight be aring exercise Last Documented On 7 11:07AM ; [facility] Hydrochlorothiazide 12.5 MG Oral Capsule (Medication) Last Documented On 7 11:14AM ; [facility] Patient Education: Daily morris cium and vitamin D Last Documented On 6 9:34AM ; [facility] Patient Education: weight be aring exercise Last Documented On 6 9:34AM ; [facility] INFORMED CONSENT DISCUSSION: Endometrial biopsy was discussed in detail including discomfort, insufficient specimen with need to repeat test, and rare incidence of uterine perforation. Patient expressed understanding of the above and consented to the procedure Last Documented On 5 1:32PM ; [facility] Patient Education: Daily morris cium and vitamin D Last Documented On 4 2:05PM ; [facility] Patient Education: weight be aring exercise Last Documented On 4 2:05PM ; [facility] Patient Education: Daily morris cium and vitamin D Last Documented On 3 10:13AM ; [facility] Patient Education: weight be aring exercise Last Documented On 3 10:13AM ; [facility] Patient Education: calcium a nd vitamin D BID Last Documented On 1 9:57AM ; [facility] Patient Education: Daily morris cium and vitamin D Last Documented On 0 1:54PM ; [facility] Patient Education: weight be aring exercise Last Documented On 0 1:54PM ; [facility] Medical Equipment - Implanted Devices Includes: Current and historical Devices No Medical Equipment Recorded Medications Includes: Current and historical Medications Current Medications (continue as prescribed) Zoloft 100MG Oral Tablet 11/24/2018 Provider: Diagnosis: Last Documented On 11/24/2018 3:11PM By DAVY MENG ; [facility] hydroCHLOROthiazide 12.5 MG CAPS 07/06/2014 Provider : Diagnosis: Last Documented On 07/06/2014 1:36PM By DAVY MENG ; [facility] Xanax 0.25 MG OR TABS 07/06/2014 Provider: Diagnosis: Last Documented On 07/06/2014 1:37PM By DAVY MENG ; [facility] Metoprolol Tartrate 25 MG OR TABS 10/27/2013 Provide r: Diagnosis: Last Documented On 10/27/2013 2:13PM By DAVY MENG ; [facility] Synthroid 175 MCG OR TABS 10/05/2009 Provider: Diagnosis: Last Documented On 10/05/2009 1:56PM By DAVY MENG ; [facility] Medications Administered Includes: Administered Medications in patient's chart No Administered Medications Recorded Results Includes: Results from 09/02/2023 through 09/01/2024 No Results Recorded For Specified Dates History of Present Illness History of Present Illness not supported for this document type No History of Present Illness Recorded Social History Description Last Updated Alcohol use occ 11/28/2019 Last Documented On 0 9:57AM ; [facility] Non-smoker 11/28/2019 Last Documented On 0 9:57AM ; [facility] Not using drugs 11/28/2019 Last Documented On 0 9:57AM ; [facility] Social history changed 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 11/28/2019 Last Documented On 0 9:57AM ; [facility] Smoking status : Former smoker 0 Last Documented On 0 9:57AM ; [facility] Orthodoxy: Taoism 11/10/2016 Last Documented On 7 11:21AM ; [facility] Confucianist affiliation 11/10/2016 Last Documented On 7 11:21AM ; [facility] Procedures and Surgical History Surgical History Last Updated History of tubal ligation 11/10/2016 Last Documented On 7 11:21AM ; [facility] Surgical / procedural history thyroid-re moved whole thyroid 11/10/2016 Last Documented On 7 11:21AM ; [facility] Medical History Includes: Medical History in patient's chart Description Last Updated No recent change in medical history 01/2020 Last Documented On 0 9:57AM ; [facility] Sexually active not currently S.A 2019 Last Documented On 0 9:57AM ; [facility] History of complete colonoscopy 8 11/28/2019 Last Documented On 0 9:57AM ; [facility] History of Pap smear done 11/24/201801/2020 Last Documented On 0 9:57AM ; [facility] History of screening mammogram was perfo rmed 10/28/2018 11/28/2019 Last Documented On 0 9:57AM ; [facility] Result: normal 11/28/2019 Last Documented On 0 9:57AM ; [facility] Result: normal 11/28/2019 Last Documented On 0 9:57AM ; [facility] section 11/19/2017 Last Documented On 8 1:22PM ; [facility] History of thyroid disorder throid remov ed 11/19/2017 Last Documented On 8 1:22PM ; [facility] 3 11/10/2016 Last Documented On 7 11:21AM ; [facility] History of benign essential hypertension 11/10/2016 Last Documented On 7 11:21AM ; [facility] LMP: 2013 11/10/2016 Last Documented On 7 11:21AM ; [facility] Para 3 11/10/2016 Last Documented On 7 11:21AM ; [facility] Previous hospitalizations TH REE C-SECTIONS,THYROID REMOVED IN 1994,[place]UBAL LIGATION [place] 199811/10/2016 Last Documented On 7 11:21AM ; [facility] Family History Includes: Family History in patient's chart Description Last Updated Family history unchanged 11/28/2019 Last Documented On 0 9:57AM ; [facility] Maternal grandmother's histo ry of malignant female breast neoplasm maternal grandma 11/28/2019 Last Documented On 0 9:57AM ; [facility] Paternal grandfather's history of diabet es mellitus paternal grandpa 11/28/2019 Last Documented On 0 9:57AM ; [facility] Paternal history of family history of he art disease father 11/28/2019 Last Documented On 0 9:57AM ; [facility] father-throat ca 11/24/2018 Last Documented On 9 3:22PM ; [facility] Heart disease father 10/10/2010 Last Documented On 1 9:57AM ; [facility] Family history of diabetes mellitus hernandez rnal grandpa 10/05/2009 Last Documented On 0 2:16PM ; [facility] Family history of malignant female breas t neoplasm maternal grandma 10/05/2009 Last Documented On 0 2:16PM ; [facility] Review of Systems Review of Systems [...] Subscriber Relationship Effect bonnie Dates 1 - [facility] [id number] MICHAEL FUNK Self Clinical Notes Includes: Signed Clinical Notes starting from 07/11/2022 No Clinical Notes Recorded
--- OUTSIDE RECORDS SUMMARY | 2024-09-01 13:52 | XMS_ITS | Clinical Summary ---
Author Organization [facility] Address [address] [place] [address] Phone Care Team Providers Care Literary Writer Name Role Phone LENNY AREVALO MD Unavailable [phone] DANIELLA SCHNEIDER PA-C Primary Care Provider [phone] DANIELLA AJ MD Unavailable [phone] Reason for Visit and Chief Complaint gynecologic annual exam - The Chief Complaint is: Annual Problems Includes: Problems addressed during this encounter and other active Problems All Visits Onset Date Resolved Date Provider Condition S tatus FAM HX-DIABETES MELLITUS 10/05/2009 YEMI LAYNE NP-BC Active Last Documented On 10/05/2009 1:58PM ; [facility] Note: paternal grandfathere FAMILY HX-BREAST MALIG 10/05/2009 YEMI LAYNE NP-BC Active Last Documented On 10/05/2009 1:59PM ; [facility] Note: maternal grandmother HYPERTENSION NOS 10/05/2009 YEMI JOINER NP-BC Active Last Documented On 0 1:59PM ; [facility] HYPOTHYROIDISM NOS 10/05/2009 YEMI LAYNE N P-BC Active Last Documented On 11/28/2019 9:57AM ; [facility] Note: thyroidectomy - s/p thyroid cancer Plan of Treatment - Follow-up visit 1 year or as needed - Last Documented On 11/24/2018 3:22PM ; [facility] - Clinical summary provided to patient - Last Documented On 11/24/2018 3:22PM ; [facility] Instructions to patient Instructions for patient : B reast Self Exam discussed Last Documented On 9 2:11PM ; [facility] Lose weight Last Documented On 9 2:12PM ; [facility] Colonoscopy Handout given to patient Last Documented On 9 2:12PM ; [facility] Education and Decision Aids were provided during visit for: Patient Education: Daily morris cium and vitamin D Last Documented On 9 2:11PM ; [facility] Patient Education: weight be aring exercise Last Documented On 9 2:11PM ; [facility] Assessments Includes: Assessments from this encounter Findings - NORMAL FEMALE EXAM - Last Documented On 11/24/2018 3:22PM ; [facility] - Screening Malig. Neoplasm Rectum - Last Documented On 11/24/2018 3:22PM ; [facility] Instructions Includes: Instructions from this encounter Instructions to patient Instructions for patient : B reast Self Exam discussed Last Documented On 9 2:11PM ; [facility] Lose weight Last Documented On 9 2:12PM ; [facility] Colonoscopy Handout given to patient Last Documented On 9 2:12PM ; [facility] Education and Decision Aids were provided during visit for: Patient Education: Daily morris cium and vitamin D Last Documented On 9 2:11PM ; [facility] Patient Education: weight be aring exercise Last Documented On 9 2:11PM ; [facility] Medical Equipment - Implanted Devices Includes: Current Devices No Medical Equipment Recorded Medications Includes: Medications discussed during this encounter and other current Medications Current Medications (continue as prescribed) Zoloft 100MG Oral Tablet 11/24/2018 Provider: Diagnosis: Last Documented On 11/24/2018 3:11PM By DAVY MENG ; [facility] hydroCHLOROthiazide 12.5 MG CAPS 07/06/2014 Provider : Diagnosis: Last Documented On 07/06/2014 1:36PM By DAVY MENG ; [facility] Xanax 0.25 MG OR TABS 07/06/2014 Provider: Diagnosis: Last Documented On 07/06/2014 1:37PM By DAVY MENG ; [facility] Metoprolol Tartrate 25 MG OR TABS 10/27/2013 Provide r: Diagnosis: Last Documented On 10/27/2013 2:13PM By DAVY MENG ; [facility] Synthroid 175 MCG OR TABS 10/05/2009 Provider: Diagnosis: Last Documented On 10/05/2009 1:56PM By DAVY MENG ; [facility] Medications Administered Includes: Administered Medications from this encounter No Administered Medications Recorded Vital Signs Includes: Vital Signs from this encounter Vital Name 11/24/2018 03:04P Blood Pressure Sitting L 118/64 BP Cuff Size Large Height (in) 68 Weight (lb) 219 Body Mass Index (kg/m2) 33.3 Body Surface Area (m2) 2.1 Last Documented: On 11/24/2018 3:08PM ; [facility] Results Includes: Results discussed during [...] 11/24/2018 Last Documented On 9 3:22PM ; [facility] Non-smoker 11/24/2018 Last Documented On 9 3:22PM ; [facility] Not using drugs 11/24/2018 Last Documented On 9 3:22PM ; [facility] Social history unchanged 11/24/2018 Last Documented On 9 3:22PM ; [facility] Smoking status : Former smoker 9 Last Documented On 9 3:22PM ; [facility] Mandaeism: Presybeterian 11/10/2016 Last Documented On 9 3:01PM ; [facility] Pentecostal affiliation 11/10/2016 Last Documented On 9 3:01PM ; [facility] Procedures and Surgical History Includes: Procedures from this encounter Procedures Code Diagnosis Performing Provider Service L ocation Service Date low fat diet Last Documented On 9 2:12PM ; [facility] fecal occult blood test was negative 71182 Last Documented On 9 2:11PM ; [facility] Cervical Pap Smear performed Q0091 Last Documented On 9 2:12PM ; [facility] Surgical History Last Updated History of tubal ligation 11/10/2016 Last Documented On 9 3:01PM ; [facility] Surgical / procedural history thyroid-re moved whole thyroid 11/10/2016 Last Documented On 9 3:01PM ; [facility] Medical History Includes: Medical History addressed during this encounter Description Last Updated No recent change in medical history 10/2018 Last Documented On 9 3:22PM ; [facility] History of screening mammogram was perfo rmed 10/201811/24/2018 Last Documented On 9 3:22PM ; [facility] Not sexually active 11/24/2018 Last Documented On 9 3:22PM ; [facility] Result: normal @[place] 11/24/2018 Last Documented On 9 3:22PM ; [facility] History of a DXA of the lateral lumbar s pine was performed 01/10/2011 wnl 11/24/2018 Last Documented On 9 3:22PM ; [facility] History of complete colonoscopy 10/2018 Last Documented On 9 3:22PM ; [facility] History of Pap smear done 11/19/201710/2018 Last Documented On 9 3:22PM ; [facility] Result: normal 11/24/2018 Last Documented On 9 3:22PM ; [facility] section 11/19/2017 Last Documented On 9 3:01PM ; [facility] History of thyroid disorder throid remov ed 11/19/2017 Last Documented On 9 3:01PM ; [facility] 3 11/10/2016 Last Documented On 9 3:01PM ; [facility] History of benign essential hypertension 11/10/2016 Last Documented On 9 3:01PM ; [facility] LMP: 2013 11/10/2016 Last Documented On 9 3:01PM ; [facility] Para 3 11/10/2016 Last Documented On 9 3:01PM ; [facility] Previous hospitalizations TH REE C-SECTIONS,THYROID REMOVED IN 1994,[place]UBAL LIGATION [place] 199811/10/2016 Last Documented On 9 3:01PM ; [facility] Family History Includes: Family History addressed during this encounter Description Last Updated father-throat ca 11/24/2018 Last Documented On 9 3:22PM ; [facility] Family history unchanged 11/24/2018 Last Documented On 9 3:22PM ; [facility] Maternal grandmother's histo ry of malignant female breast neoplasm maternal grandma 11/24/2018 Last Documented On 9 3:22PM ; [facility] Paternal grandfather's history of diabet es mellitus paternal grandpa 11/24/2018 Last Documented On 9 3:22PM ; [facility] Paternal history of hypertension 019 Last Documented On 9 3:22PM ; [facility] Heart disease father 10/10/2010 Last Documented On 9 3:01PM ; [facility] Review of Systems Includes: Review of [...] Check-Out Time Diagnosis WELL WOMAN EXAM YEMI LAYNE [facility] 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 Neoplasm Rectum,Normal Female Exam Insurance Includes: Active Insurance Policies Plan Name Member ID Group # Subscriber Relationship Effect bonnie Dates 1 - [facility] [id number] MICHAEL FUNK Self Clinical Notes Includes: Clinical Notes from this encounter No Clinical Notes Recorded
--- OUTSIDE RECORDS SUMMARY | 2024-09-01 13:52 | XMS_ITS | Clinical Summary ---
Author Organization [facility] Address [address] [place] [address] Phone Care Team Providers Care Dry Press Operator Name Role Phone LENNY AREVALO MD Unavailable [phone] DANIELLA SCHNEIDER PA-C Primary Care Provider [phone] DANIELLA HERNANDEZ MD Unavailable [phone] Reason for Visit and Chief Complaint gynecologic annual exam - The Chief Complaint is: Annual Problems Includes: Problems addressed during this encounter and other active Problems All Visits Onset Date Resolved Date Provider Condition S tatus FAM HX-DIABETES MELLITUS 10/05/2009 YEMI LAYNE NP-BC Active Last Documented On 10/05/2009 1:58PM ; [facility] Note: paternal grandfathere FAMILY HX-BREAST MALIG 10/05/2009 YEMI LAYNE NP-BC Active Last Documented On 10/05/2009 1:59PM ; [facility] Note: maternal grandmother HYPERTENSION NOS 10/05/2009 YEMI JOINER NP-BC Active Last Documented On 0 1:59PM ; [facility] HYPOTHYROIDISM NOS 10/05/2009 YEMI LAYNE N P-BC Active Last Documented On 11/28/2019 9:57AM ; [facility] Note: thyroidectomy - s/p thyroid cancer Plan of Treatment - Follow-up visit 1 year or as needed - Last Documented On 11/05/2015 9:58AM ; [facility] - Clinical summary provided to patient - Last Documented On 11/05/2015 9:58AM ; [facility] Instructions to patient Instructions for patient : B reast Self Exam discussed Last Documented On 6 9:34AM ; [facility] Lose weight Last Documented On 6 9:34AM ; [facility] Colonoscopy Handout given to patient Last Documented On 6 9:34AM ; [facility] Education and Decision Aids were provided during visit for: Patient Education: Daily morris cium and vitamin D Last Documented On 6 9:34AM ; [facility] Patient Education: weight be aring exercise Last Documented On 6 9:34AM ; [facility] Assessments Includes: Assessments from this encounter Findings - NORMAL FEMALE EXAM - Last Documented On 11/05/2015 9:58AM ; [facility] - Screening Malig. Neoplasm Rectum - Last Documented On 11/05/2015 9:58AM ; [facility] Instructions Includes: Instructions from this encounter Instructions to patient Instructions for patient : B reast Self Exam discussed Last Documented On 6 9:34AM ; [facility] Lose weight Last Documented On 6 9:34AM ; [facility] Colonoscopy Handout given to patient Last Documented On 6 9:34AM ; [facility] Education and Decision Aids were provided during visit for: Patient Education: Daily morris cium and vitamin D Last Documented On 6 9:34AM ; [facility] Patient Education: weight be aring exercise Last Documented On 6 9:34AM ; [facility] Medical Equipment - Implanted Devices Includes: Current Devices No Medical Equipment Recorded Medications Includes: Medications discussed during this encounter and other current Medications Current Medications (continue as prescribed) Zoloft 100MG Oral Tablet 11/24/2018 Provider: Diagnosis: Last Documented On 11/24/2018 3:11PM By DAVY MENG ; [facility] hydroCHLOROthiazide 12.5 MG CAPS 07/06/2014 Provider : Diagnosis: Last Documented On 07/06/2014 1:36PM By DAVY MENG ; [facility] Xanax 0.25 MG OR TABS 07/06/2014 Provider: Diagnosis: Last Documented On 07/06/2014 1:37PM By DAVY MENG ; [facility] Metoprolol Tartrate 25 MG OR TABS 10/27/2013 Provide r: Diagnosis: Last Documented On 10/27/2013 2:13PM By DAVY MENG ; [facility] Synthroid 175 MCG OR TABS 10/05/2009 Provider: Diagnosis: Last Documented On 10/05/2009 1:56PM By DAVY MENG ; [facility] Medications Administered Includes: Administered Medications from this encounter No Administered Medications Recorded Vital Signs Includes: Vital Signs from this encounter Vital Name 11/05/2015 09:36A Blood Pressure Sitting L 130/66 BP Cuff Size Large Height (in) 68 Weight (lb) 204 Body Mass Index (kg/m2) 31.0 Body Surface Area (m2) 2.1 Last Documented: On 11/05/2015 9:42AM ; [facility] Results Includes: Results discussed during this encounter No Results Recorded For Specified Dates History of Present Illness Includes: History of Present Illness from this encounter POLO FUNK is a 55 year old female. - Medication list reviewed - PRIMARY CARE PROVIDER : Dr Hernandez - Menopause has occurred Social History Description Last Updated Roman Catholic: Lutheran 11/10/2016 Last Documented On 6 9:33AM ; [facility] Restorationist affiliation 11/10/2016 Last Documented On 6 9:33AM ; [facility] Sexually active with 0 partners in the l ast year 11/05/2015 Last Documented On 6 9:58AM ; [facility] Alcohol use occ 11/05/2015 Last Documented On 6 9:58AM ; [facility] Non-smoker 11/05/2015 Last Documented On 6 9:58AM ; [facility] Not using drugs 11/05/2015 Last Documented On 6 9:58AM ; [facility] Social history unchanged 11/05/2015 Last Documented On 6 9:58AM ; [facility] Smoking status : Former smoker 6 Last Documented On 6 9:58AM ; [facility] Procedures and Surgical History Includes: Procedures from this encounter Procedures Code Diagnosis Performing Provider Service L ocation Service Date low fat diet Last Documented On 6 9:34AM ; [facility] fecal occult blood test was negative 06362 Last Documented On 6 9:34AM ; [facility] history of abnormal Pap smear of cervix h/o colpo Last Documented On 6 9:46AM ; [facility] Cervical Pap Smear performed Q0091 Last Documented On 6 9:34AM ; [facility] Surgical History Last Updated History of tubal ligation 11/10/2016 Last Documented On 6 9:33AM ; [facility] Surgical / procedural history thyroid-re moved whole thyroid 11/10/2016 Last Documented On 6 9:33AM ; [facility] Medical History Includes: Medical History addressed during this encounter Description Last Updated 3 11/10/2016 Last Documented On 6 9:33AM ; [facility] History of benign essential hypertension 11/10/2016 Last Documented On 6 9:33AM ; [facility] LMP: 2013 11/10/2016 Last Documented On 6 9:33AM ; [facility] Para 3 11/10/2016 Last Documented On 6 9:33AM ; [facility] Previous hospitalizations TH REE C-SECTIONS,THYROID REMOVED IN 1994,[place]UBAL LIGATION [place] 199811/10/2016 Last Documented On 6 9:33AM ; [facility] section 11/05/2015 Last Documented On 6 9:58AM ; [facility] History of thyroid disorder removed 15 y ears ago-thyroid ca 11/05/2015 Last Documented On 6 9:58AM ; [facility] No recent change in medical history 10/20 Last Documented On 6 9:58AM ; [facility] History of screening mammogram was perfo rmed 07/09/2015 11/05/2015 Last Documented On 6 9:58AM ; [facility] Sexually active 11/05/2015 Last Documented On 6 9:58AM ; [facility] History of a DEXA of the lateral lumbar spine was performed 01/10/2011 wnl 11/05/2015 Last Documented On 6 9:58AM ; [facility] History of complete colonoscopy 2011 rep eat in 10 years 11/05/2015 Last Documented On 6 9:58AM ; [facility] History of Pap smear done 06/28/201210/20 Last Documented On 6 9:58AM ; [facility] Result: normal 11/05/2015 Last Documented On 6 9:58AM ; [facility] Family History Includes: Family History addressed during this encounter Description Last Updated Family history unchanged 11/05/2015 Last Documented On 6 9:58AM ; [facility] Fraternal history of family history of h eart disease father 11/05/2015 Last Documented On 6 9:58AM ; [facility] Maternal grandmother's histo ry of malignant female breast neoplasm maternal grandma 11/05/2015 Last Documented On 6 9:58AM ; [facility] Paternal grandfather's history of diabet es mellitus paternal grandpa 11/05/2015 Last Documented On 6 9:58AM ; [facility] Sororal history of hypertension brother 11/05/2015 Last Documented On 6 9:58AM ; [facility] Review of Systems Includes: Review of Systems [...] Date Check-In Time Check-Out Time Diagnosis 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 Neoplasm Rectum,Normal Female Exam Insurance Includes: Active Insurance Policies Plan Name Member ID Group # Subscriber Relationship Effect bonnie Dates 1 - [facility] [id number] MICHAEL FUNK Self Clinical Notes Includes: Clinical Notes from this encounter No Clinical Notes Recorded
== END 2024-09-01 12:35 | disposition home or self-care (01) ==
PROVIDERS: Emergency Provider Emergency Medicine; PCP Physician Assistant
DX: J02.0 Streptococcal pharyngitis (principal); Z20.822 Contact with and (suspected) exposure to COVID-19
CPT/HCPCS: 36415; 71045; 80053; 85025; 85055; 87637; 87651; 94640; 99283

== ENCOUNTER 2025-05-24 13:12 | Emergency (ER) | payer OTHER, SELFPAY ==
--- NOTE | ~2025-05-24 | XR_ITS ---
EXAMINATION: XR wrist LT min 3V, 05/24/2025 13:15 BRAZING MACHINE OPERATOR HISTORY: Swelling and pain COMPARISON: No comparisons available. Findings: There is a remote corticated fractures of the ulna styloid process, no acute fracture is identified Severe degenerative changes of the first metacarpal carpal joint. Soft tissues unremarkable. Impression: No acute fracture or malalignment. Reviewed, dictated and finalized at location P. ING MACHINE OPERATOR Impression: No acute fracture or malalignment.
[2025-05-24 13:19] VITALS: BP 170/91; PULSE 81; RESP 18; TEMP 36.4; O2SAT 97
--- NOTE | 2025-05-24 13:53 | ED.EXTPRO ---
HPI - Extremity Problem General Chief complaint: Extremity Problem,Nontraumatic Stated complaint: left wrist pain Time Seen by Provider: 05/24/25 13:26 Source: patient Mode of arrival: ambulatory Limitations: no limitations History of Present Illness HPI Narrative: Patient is a 65-year-old female with a left wrist pain and irritation with swelling and redness for the past week. She has no history of gout. She has no history of any other joint problems at this time. No associated fever or chills. Patient drinks 6 beers a night. MD Complaint: joint paint (Left wrist) Onset (ago): week(s) (1) Pain Consistency: constant Location: upper extremity (Left wrist) Severity scale (1-10): 5 Quality: burning, stabbing, sharp and constant Radiation: proximal Relieving factors: immobilization Exacerbating factors: range of motion, weight bearing, exertion and palpation Associated symptoms: denies other symptoms Context: other (Patient has left wrist pain after the past week with swelling and inflammation) Related Data Home Medications ?Medication ?Instructions ?Recorded ?Confirmed ?Last Taken ?Type disulfiram 250 mg tablet mg 05/24/25 Unknown History folic acid 1 mg tablet 05/24/25 Unknown History hydrocodone 5 mg-acetaminophen 325 tablet 05/24/25 Unknown History mg tablet levothyroxine 200 mcg tablet mcg 05/24/25 Unknown History losartan 100 mg tablet mg 05/24/25 Unknown History metoprolol tartrate 25 mg tablet mg 05/24/25 Unknown History sertraline 100 mg tablet mg 05/24/25 Unknown History Allergies Allergy/AdvReac Type Severity Reaction Status Date / Time No Known Allergies Allergy Verified 05/24/25 13:17 Review of Systems Review of Systems: All systems reviewed & are unremarkable except as noted in HPI and below Constitutional: Constitutional: Reports no additional constitutional complaints Eyes: Eyes: Reports no additional eye complaints ENT: Reports system reviewed and no additional complaints, except as documented Cardiovascular: Cardiovascular: Reports no additional cardiovascular complaints Respiratory: Respiratory: Reports no additional respiratory complaints Gastrointestinal: Gastrointestinal: Reports no additional gastrointestinal complaints Genitourinary: Genitourinary: Reports no additional female genitourinary complaints Musculoskeletal: Musculoskeletal: Reports no additional musculoskeletal complaints Integumentary/Breasts: Skin/Breast: Reports system reviewed and no additional complaints, except as docu Neurologic: Reports system reviewed and no additional complaints, except as documented Psychiatric: Psychiatric: Reports no additional psychiatric complaints Endocrine: Endocrine: Reports no additional endocrine complaints Hematologic/Lymphatic: Hematologic/Lymphatic: Reports no additional hematologic/lymphatic complaints Allergic/Immunologic: Allergic/Immunologic: Reports no additional allergic/immunologic complaints PMFSH Past Medical History Medical History Patient denies medical problems Exam Const: General: healthy appearing Nutritional Appearance: well nourished Orientation/consciousness: patient oriented x3 Limitations: no limitations HENMT: Head: normal to inspection Ears: external ears normal Face/Nose/Sinus: Normal external nose present Eyes: Conjunctivae: conjunctivae normal Pupils: Equal, round and reactive pupils present EOM: EOMs intact bilaterally Neck: Neck: normal visual inspection Chest: Chest palpation & inspection: normal inspection of the chest Resp: Effort & Inspection: normal respiratory effort and not labored Auscultation: clear to auscultation bilaterally and no crackles Cardio: Rate: regular rate Rhythm: regular rhythm Heart sounds: no murmurs GI: Inspection: non-distended GI Palp: Yes Soft to palpation, No Tenderness to palpation present (GI) and No Guarding due to palpation present (GI) Auscultation: normal bowel sounds : General: Yes bladder normal to palpation Back/Spine/Pelvis: Back: no CVA tenderness Skin: General skin exam: normal color Rashes: no rashes Wounds: no wounds Neuro: General: patient oriented x3 and moves all extremities Cranial nerves: Yes Nystagmus not present Speech: normal speech Gait exam (Neuro): Normal gait present Extrem: General: abnormal to inspection, no clubbing, cyanosis or edema and no pedal edema Other: Left wrist is swollen and red with tenderness to palpation Psych: Mental Status: mental status grossly normal Affect: normal affect and Anxious affect present Attitude: cooperative Course Vital Signs Vital signs: Vital Signs Temperature 36.4 C 05/24/25 13:19 Pulse Rate 81 05/24/25 13:19 Respiratory Rate 18 05/24/25 13:19 Blood Pressure 170/91 H 05/24/25 13:19 Pulse Oximetry 97 05/24/25 13:19 Oxygen Delivery Room Air 05/24/25 13:19 Temperature 36.4 C 05/24/25 13:19 Pulse Rate 81 05/24/25 13:19 Respiratory Rate 18 05/24/25 13:19 Blood Pressure 170/91 H 05/24/25 13:19 Pulse Oximetry 97 05/24/25 13:19 Oxygen Delivery Room Air 05/24/25 13:19 [facility] MDM Narrative Medical decision making narrative: Patient is a 65-year-old female with a left wrist pain and swelling for the past week. We will check x-ray. Differential Diagnosis Differential Diagnosis: Gout Imaging Data Attestation: I personally reviewed and interpreted this imaging study as follows: Radiologist's impression: ITS Impressions Wrist X-Ray 05/24/25 13:30 Impression: No acute fracture or malalignment. Discharge Plan Discharge Clinical Impression: Gout Qualifiers: Gout site: wrist Gout etiology: unspecified cause Chronicity: acute Laterality: left Qualified Code(s): M10.9 - Gout, unspecified Patient Disposition: Home Condition: Stable Instructions: Low Purine Diet (ED), Gout (ED) Additional Instructions: Please cut back on your beer drinking in the evenings to assist with resolving this problem. Patient Language: [place] Prescriptions: New colchicine 0.6 mg capsule 0.6 mg PO DAILY 7 Days Qty: 7 0RF Rx Instructions: 1.2mg now, then 0.6mg daily prednisone 20 mg tablet 40 mg PO DAILY 3 Days Qty: 6 0RF No Action hydrocodone-acetaminophen 5-325 mg tablet sertraline 100 mg tablet disulfiram 250 mg tablet folic acid 1 mg tablet levothyroxine 200 mcg tablet losartan 100 mg tablet metoprolol tartrate 25 mg tablet Follow-up/Referrals: Randy,JUAN Smart [Primary Care Provider] Time of Disposition: 14:12
--- OUTSIDE RECORDS SUMMARY | 2025-05-24 14:22 | XMS_ITS | Data Portability ---
Author Organization [facility] Johnathan Gray Address [address] [place] [address] Care Team Providers Care Guard Captain Name Role Phone DANIELLA PADILLA Primary Care Provider CRISTIANE TORRES Equine Vet Unavailable Assessment No assessment recorded. Plan of Treatment Reminders Order Date Submit Date Provider Last Modified By Organization Details Last Modified Time Details Appointments None recorded. Lab CBC 2024 025 [facility], [address] [facility], [facility] [address], [address], 11:30:56 CMP, serum or plasma 2024 025 [facility], [address] [place] [address] [place], [address], 11:30:52 lipid panel, serum 2024 025 [facility], [address] [place] [address] [place], [address], 11:30:51 HbA1c (hemoglobin A1c), blood 2024 025 [facility], [address] [facility], [facility] 2, [place], [address], 5 11:30:55 CBC 2024 025 [facility], [address] [facility], [facility] 2, [place], [address], 09:13:04 CMP, serum or plasma 2024 025 [facility], [address], [place], [address], 5 09:13:02 lipid panel, serum 2024 025 [facility], [address], [place], [address], 5 09:13:00 TSH + free T4, serum 2024 025 [facility], [address], [place], [address], 5 09:12:59 HbA1c (hemoglobin A1c), blood 2024 025 [facility] In-Office Order, Internal Use Only DO Not Attach Compendium DO Not Attach Compendium, Do Not Delete/merge, [id number] 12:57:54 TSH + free T4, serum 2023 024 [facility], [address], [place], [address], 4 06:19:43 CBC 2023 024 [facility], [address], [place], [address], 4 06:19:46 CMP, serum or plasma 2023 024 [facility], [address], [place], [address], 4 06:19:44 lipid panel, serum 2023 024 [facility], [address], [place], [address], 4 06:19:44 Referral None recorded. Procedures None recorded. Surgeries None recorded. Imaging None recorded. Medication Orders disulfiram 250 mg tablet 2024 025 [id number], [address], [place], [place], [id number], 5 12:05:19 fluticasone propionate 50 mcg/actuati on nasal spray,suspe nsion 2024 025 [facility] #[id number], [address], [place], [place], [id number], 5 12:05:19 alprazolam 1 mg tablet 2023 024 [place] [id number], [address], [place], [place], [id number], 4 12:19:46 Patient TargetsNo targets recorded. Patient Instructions Encounter Date Encounter Id Patient Instructions Last Modified By Organization Details Last Modified Time 04/17/2023 [id number] influenza (flu) vaccine: care instructions jnanney Not available 04/17/2023 12:10:18 12/15/2023 [id number] A healthy lifestyle: care instructions jnanney Not available 12/15/2023 12:19:39 A healthy lifestyle: care instructions jnanney Not available 12/15/2023 12:22:08 learning about high blood pressure jnanney Not available 12/15/2023 12:22:08 06/24/2024 [id number] A healthy lifestyle: care instructions jnanney Not available 06/24/2024 12:39:09 learning about high blood pressure jnanney Not available 06/24/2024 12:39:09 09/26/2024 [id number] alcohol detoxification and withdrawal: care instructions jnanney Not available 09/26/2024 12:05:08 substance use disorder: care instructions jnanney Not available 09/26/2024 12:05:08 upper respirator y infection (cold): care instructions jnanney Not available 09/26/2024 12:05:08 Reason for Referral None Reported. Results Created Date Observation Date Name Description Value Unit Range Abnormal Flag Note LastModifiedBy Organization Detail LastModifiedTime 12/15/19 24 12/18/2023 TSH+F REE T4 TSH 5.910 uIU/m L 0.450- 4.500 above high normal Not Available [address], [address], 12/18/2023 06:19:43 12/15/19 24 12/18/2023 TSH+F REE T4 T4,free(dire ct) 1.22 NG/dL 0.82-1 .77 Not Available [address], [address], 12/18/2023 06:19:43 12/15/19 24 12/18/2023 LIPID PANEL cholesterol, total 196 mg/dL 100-19 9 Not Available [address], [address], 12/18/2023 06:19:43 12/15/19 24 12/18/2023 LIPID PANEL triglyceride s 175 mg/dL 0-149 above high normal Not Available [address], [address], 12/18/2023 06:19:43 12/15/19 24 12/18/2023 LIPID PANEL HDL cholesterol 48 mg/dL >39 Not Available [address], [address], 12/18/2023 06:19:43 12/15/19 24 12/18/2023 LIPID PANEL VLDL cholesterol morris 31 mg/dL 5-40 Not Available [address], [address], 12/18/2023 06:19:43 12/15/19 24 12/18/2023 LIPID PANEL LDL chol calc ([facility]) 117 mg/dL 0-99 above high normal Not Available [address], [address], 12/18/2023 06:19:43 12/15/19 24 12/18/2023 COMP. METAB OLIC PANEL (14) glucose 109 mg/dL 70-99 above high normal Not Available [address], [address], 12/18/2023 06:19:44 12/15/19 24 12/18/2023 COMP. METAB OLIC PANEL (14) BUN 11 mg/dL 8-27 Not Available [address], [address], 12/18/2023 06:19:44 12/15/19 24 12/18/2023 COMP. METAB OLIC PANEL (14) creatinine 0.76 mg/dL 0.57-1 .00 Not Available [address], [address], 12/18/2023 06:19:44 12/15/19 24 12/18/2023 COMP. METAB OLIC PANEL (14) eGFR 89 mL/mi n/1.7 3 >59 Not Available [address], [address], 12/18/2023 06:19:44 12/15/19 24 12/18/2023 COMP. METAB OLIC PANEL (14) BUN/creatini ne ratio 14 12-28 Not Available [address], [address], 12/18/2023 06:19:44 12/15/19 24 12/18/2023 COMP. METAB OLIC PANEL (14) sodium 134 mmol/ L 134-14 4 Not Available [address], [address], 12/18/2023 06:19:44 12/15/19 24 12/18/2023 COMP. METAB OLIC PANEL (14) potassium 5.1 mmol/ L 3.5-5. 2 Not Available [address], [address], 12/18/2023 06:19:44 12/15/19 24 12/18/2023 COMP. METAB OLIC PANEL (14) chloride 94 mmol/ L 96-106 below low normal Not Available [address], [address], 12/18/2023 06:19:44 12/15/19 24 12/18/2023 COMP. METAB OLIC PANEL (14) carbon dioxide, total 23 mmol/ L 20-29 Not Available [address], [address], 12/18/2023 06:19:44 12/15/19 24 12/18/2023 COMP. METAB OLIC PANEL (14) calcium 9.9 mg/dL 8.7-10 .3 Not Available [address], [address], 12/18/2023 06:19:44 12/15/19 24 12/18/2023 COMP. METAB OLIC PANEL (14) protein, total 7.5 g/dL 6.0-8. 5 Not Available [address], [address], 12/18/2023 06:19:44 12/15/19 24 12/18/2023 COMP. METAB OLIC PANEL (14) albumin 4.7 g/dL 3.9-4. 9 Not Available [address], [address], 12/18/2023 06:19:44 12/15/19 24 12/18/2023 COMP. METAB OLIC PANEL (14) globulin, total 2.8 g/dL 1.5-4. 5 Not Available [address], [address], 12/18/2023 06:19:44 12/15/19 24 12/18/2023 COMP. METAB OLIC PANEL (14) bilirubin, total <0.2 mg/dL 0.0-1. 2 Not Available [address], [address], 12/18/2023 06:19:44 12/15/19 24 12/18/2023 COMP. METAB OLIC PANEL (14) alkaline phosphatase 79 IU/L 44-121 Not Available [address], [address], 12/18/2023 06:19:44 12/15/19 24 12/18/2023 COMP. METAB OLIC PANEL (14) AST (SGOT) 28 IU/L 0-40 Not Available [address], [address], 12/18/2023 06:19:44 12/15/19 24 12/18/2023 COMP. METAB OLIC PANEL (14) ALT (SGPT) 22 IU/L 0-32 Not Available [address], [address], 12/18/2023 06:19:44 12/15/19 24 12/18/2023 CARDI OVASC ULAR REPOR T interpretati on Note Suppl ement al repor t is avail able. Not Available [address], [address], 12/18/2023 06:19:45 12/15/19 24 12/18/2023 CARDI OVASC ULAR REPOR T pdf . Not Available [address], [address], 12/18/2023 06:19:45 12/15/19 24 12/16/2023 CBC, PLATE LET, NO DIFFE RENTI AL WBC 6.3 x10e3 /uL 3.4-10 .8 Not Available [address], [address], 12/18/2023 06:19:46 12/15/19 24 12/16/2023 CBC, PLATE LET, NO DIFFE RENTI AL RBC 4.17 x10e6 /uL 3.77-5 .28 Not Available [address], [address], 12/18/2023 06:19:46 12/15/19 24 12/16/2023 CBC, PLATE LET, NO DIFFE RENTI AL hemoglobin 14.2 g/dL 11.1-1 5.9 Not Available [address], [address], 12/18/2023 06:19:46 12/15/19 24 12/16/2023 CBC, PLATE LET, NO DIFFE RENTI AL hematocrit 42.0 % 34.0-4 6.6 Not Available [address], [address], 12/18/2023 06:19:46 12/15/19 24 12/16/2023 CBC, PLATE LET, NO DIFFE RENTI AL MCV 101 fL 79-97 above high normal Not Available [address], [address], 12/18/2023 06:19:46 12/15/19 24 12/16/2023 CBC, PLATE LET, NO DIFFE RENTI AL MCH 34.1 pg 26.6-3 3.0 above high normal Not Available [address], [address], 12/18/2023 06:19:46 12/15/19 24 12/16/2023 CBC, PLATE LET, NO DIFFE RENTI AL MCHC 33.8 g/dL 31.5-3 5.7 Not Available [address], [address], 12/18/2023 06:19:46 12/15/1912/16/2023 CBC, PLATE LET, NO DIFFE RENTI AL RDW 13.7 % 11.7-1 5.4 Not Available [address], [address], 12/18/2023 06:19:46 12/15/19 24 12/16/2023 CBC, PLATE LET, NO DIFFE RENTI AL platelets 213 x10e3 /uL 150-45 0 Not Available [address], [address], 12/18/2023 06:19:46 06/24/1906/25/2024 TSH+F REE T4 TSH 5.550 uIU/m L 0.450- 4.500 above high normal Not Available [address], [address], 06/25/2024 09:12:59 06/24/1906/25/2024 TSH+F REE T4 T4,free(dire ct) 1.21 NG/dL 0.82-1 .77 Not Available [address], [address], 06/25/2024 09:12:59 06/24/1906/25/2024 LIPID PANEL cholesterol, total 209 mg/dL 100-19 9 above high normal Not Available [address], [address], 06/25/2024 09:13:00 06/24/1906/25/2024 LIPID PANEL triglyceride s 121 mg/dL 0-149 Not Available [address], [address], 06/25/2024 09:13:00 06/24/19 25 06/25/2024 LIPID PANEL HDL cholesterol 52 mg/dL >39 Not Available [address], [address], 06/25/2024 09:13:00 06/24/19 25 06/25/2024 LIPID PANEL VLDL cholesterol morris 22 mg/dL 5-40 Not Available [address], [address], 06/25/2024 09:13:00 06/24/1906/25/2024 LIPID PANEL LDL chol calc (nih) 135 mg/dL 0-99 above high normal Not Available [address], [address], 06/25/2024 09:13:00 06/24/1906/25/2024 COMP. METAB OLIC PANEL (14) glucose 107 mg/dL 70-99 above high normal Not Available [address], [address], 06/25/2024 09:13:01 06/24/19 25 06/25/2024 COMP. METAB OLIC PANEL (14) BUN 11 mg/dL 8-27 Not Available [address], [address], 06/25/2024 09:13:01 06/24/1906/25/2024 COMP. METAB OLIC PANEL (14) creatinine 0.59 mg/dL 0.57-1 .00 Not Available [address], [address], 06/25/2024 09:13:01 06/24/19 25 06/25/2024 COMP. METAB OLIC PANEL (14) eGFR 101 mL/mi n/1.7 3 >59 Not Available [address], [address], 06/25/2024 09:13:01 06/24/19 25 06/25/2024 COMP. METAB OLIC PANEL (14) BUN/creatini ne ratio 19 12-28 Not Available [address], [address], 06/25/2024 09:13:01 06/24/19 25 06/25/2024 COMP. METAB OLIC PANEL (14) sodium 134 mmol/ L 134-14 4 Not Available [address], [address], 06/25/2024 09:13:01 06/24/19 25 06/25/2024 COMP. METAB OLIC PANEL (14) potassium 4.6 mmol/ L 3.5-5. 2 Not Available [address], [address], 06/25/2024 09:13:01 06/24/19 25 06/25/2024 COMP. METAB OLIC PANEL (14) chloride 95 mmol/ L 96-106 below low normal Not Available [address], [address], 06/25/2024 09:13:01 06/24/19 25 06/25/2024 COMP. METAB OLIC PANEL (14) carbon dioxide, total 23 mmol/ L 20-29 Not Available [address], [address], 06/25/2024 09:13:01 06/24/1906/25/2024 COMP. METAB OLIC PANEL (14) calcium 9.3 mg/dL 8.7-10 .3 Not Available [address], [address], 06/25/2024 09:13:01 06/24/19 25 06/25/2024 COMP. METAB OLIC PANEL (14) protein, total 7.1 g/dL 6.0-8. 5 Not Available [address], [address], 06/25/2024 09:13:01 06/24/19 25 06/25/2024 COMP. METAB OLIC PANEL (14) albumin 4.3 g/dL 3.9-4. 9 Not Available [address], [address], 06/25/2024 09:13:01 06/24/1906/25/2024 COMP. METAB OLIC PANEL (14) globulin, total 2.8 g/dL 1.5-4. 5 Not Available [address], [address], 06/25/2024 09:13:01 06/24/19 25 06/25/2024 COMP. METAB OLIC PANEL (14) bilirubin, total 0.4 mg/dL 0.0-1. 2 Not Available [address], [address], 06/25/2024 09:13:01 06/24/1906/25/2024 COMP. METAB OLIC PANEL (14) alkaline phosphatase 74 IU/L 44-121 Not Available [address], [address], 06/25/2024 09:13:01 06/24/1906/25/2024 COMP. METAB OLIC PANEL (14) AST (SGOT) 25 IU/L 0-40 Not Available [address], [address], 06/25/2024 09:13:01 06/24/1906/25/2024 COMP. METAB OLIC PANEL (14) ALT (SGPT) 23 IU/L 0-32 Not Available [facility] & [address], [address], 06/25/2024 09:13:06/24/1906/25/2024 CARDI OVASC ULAR REPOR T interpretati on Note Suppl ement al repor t is avail able. Not Available [address], [address], 06/25/2024 09:13:03 06/24/1906/25/2024 CARDI OVASC ULAR REPOR T pdf . Not Available [address], [address], 06/25/2024 09:13:03 06/24/1906/25/2024 CBC, PLATE LET, NO DIFFE RENTI AL WBC 6.3 x10e3 /uL 3.4-10 .8 Not Available [address], [address], 06/25/2024 09:13:06/24/1906/25/2024 CBC, PLATE LET, NO DIFFE RENTI AL RBC 4.14 x10e6 /uL 3.77-5 .28 Not Available [address], [address], 06/25/2024 09:13:06/24/1906/25/2024 CBC, PLATE LET, NO DIFFE RENTI AL hemoglobin 14.0 g/dL 11.1-1 5.9 Not Available [address], [address], 06/25/2024 09:13:04 06/24/1906/25/2024 CBC, PLATE LET, NO DIFFE RENTI AL hematocrit 40.9 % 34.0-4 6.6 Not Available [address], [address], 06/25/2024 09:13:04 06/24/1906/25/2024 CBC, PLATE LET, NO DIFFE RENTI AL MCV 99 fL 79-97 above high normal Not Available [address], [address], 06/25/2024 09:13:04 06/24/1906/25/2024 CBC, PLATE LET, NO DIFFE RENTI AL MCH 33.8 pg 26.6-3 3.0 above high normal Not Available [address], [address], 06/25/2024 09:13:04 06/24/1906/25/2024 CBC, PLATE LET, NO DIFFE RENTI AL MCHC 34.2 g/dL 31.5-3 5.7 Not Available [address], [address], 06/25/2024 09:13:04 06/24/1906/25/2024 CBC, PLATE LET, NO DIFFE RENTI AL RDW 12.8 % 11.7-1 5.4 Not Available [address], [address], 06/25/2024 09:13:06/24/1906/25/2024 CBC, PLATE LET, NO DIFFE RENTI AL platelets 199 x10e3 /uL 150-45 0 Not Available [address], [address], 06/25/2024 09:13:06/24/1906/24/2024 HbA1c (hemo globi n A1c), blood HbA1c 5.4 Not Available In-Office Order Internal Use Only DO Not Attach Compendium DO Not Attach Compendium, Do Not Delete/merge, [id number] 06/24/2024 12:39:32 09/27/1909/27/2024 LIPID PANEL cholesterol, total 182 mg/dL 100-19 9 Not Available [address], [address], 09/27/2024 11:30:51 09/27/19 25 09/27/2024 LIPID PANEL triglyceride s 241 mg/dL 0-149 above high normal Not Available [address], [address], 09/27/2024 11:30:51 09/27/19 25 09/27/2024 LIPID PANEL HDL cholesterol 44 mg/dL >39 Not Available [address], [address], 09/27/2024 11:30:51 09/27/19 25 09/27/2024 LIPID PANEL VLDL cholesterol morris 41 mg/dL 5-40 above high normal Not Available [address], [address], 09/27/2024 11:30:51 09/27/19 25 09/27/2024 LIPID PANEL LDL chol calc (nih) 97 mg/dL 0-99 Not Available [address], [address], 09/27/2024 11:30:51 09/27/19 25 09/27/2024 COMP. METAB OLIC PANEL (14) glucose 114 mg/dL 70-99 above high normal Not Available [address], [address], 09/27/2024 11:30:52 09/27/19 25 09/27/2024 COMP. METAB OLIC PANEL (14) BUN 6 mg/dL 8-27 below low normal Not Available [address], [address], 09/27/2024 11:30:52 09/27/19 25 09/27/2024 COMP. METAB OLIC PANEL (14) creatinine 0.57 mg/dL 0.57-1 .00 Not Available [address], [address], 09/27/2024 11:30:52 09/27/19 25 09/27/2024 COMP. METAB OLIC PANEL (14) eGFR 102 mL/mi n/1.7 3 >59 Not Available [address], [address], 09/27/2024 11:30:52 09/27/19 25 09/27/2024 COMP. METAB OLIC PANEL (14) BUN/creatini ne ratio 11 12-28 below low normal Not Available [address], [address], 09/27/2024 11:30:52 09/27/19 25 09/27/2024 COMP. METAB OLIC PANEL (14) sodium 132 mmol/ L 134-14 4 below low normal Not Available [address], [address], 09/27/2024 11:30:52 09/27/19 25 09/27/2024 COMP. METAB OLIC PANEL (14) potassium 4.8 mmol/ L 3.5-5. 2 Not Available [address], [address], 09/27/2024 11:30:52 09/27/19 25 09/27/2024 COMP. METAB OLIC PANEL (14) chloride 94 mmol/ L 96-106 below low normal Not Available [address], [address], 09/27/2024 11:30:52 09/27/19 25 09/27/2024 COMP. METAB OLIC PANEL (14) carbon dioxide, total 25 mmol/ L 20-29 Not Available [address] [place], [address], 09/27/2024 11:30:52 09/27/19 25 09/27/2024 COMP. METAB OLIC PANEL (14) calcium 9.5 mg/dL 8.7-10 .3 Not Available [address], [address], 09/27/2024 11:30:52 09/27/19 25 09/27/2024 COMP. METAB OLIC PANEL (14) protein, total 7.5 g/dL 6.0-8. 5 Not Available [address], [address], 09/27/2024 11:30:52 09/27/19 25 09/27/2024 COMP. METAB OLIC PANEL (14) albumin 4.4 g/dL 3.9-4. 9 Not Available [address], [address], 09/27/2024 11:30:52 09/27/19 25 09/27/2024 COMP. METAB OLIC PANEL (14) globulin, total 3.1 g/dL 1.5-4. 5 Not Available [address], [address], 09/27/2024 11:30:52 09/27/19 25 09/27/2024 COMP. METAB OLIC PANEL (14) bilirubin, total 0.5 mg/dL 0.0-1. 2 Not Available [address], [address], 09/27/2024 11:30:52 09/27/19 25 09/27/2024 COMP. METAB OLIC PANEL (14) alkaline phosphatase 83 IU/L 44-121 Not Available [address], [address], 09/27/2024 11:30:52 09/27/19 25 09/27/2024 COMP. METAB OLIC PANEL (14) AST (SGOT) 35 IU/L 0-40 Not Available [facility] & [address], [address], 09/27/2024 11:30:52 09/27/19 25 09/27/2024 COMP. METAB OLIC PANEL (14) ALT (SGPT) 39 IU/L 0-32 above high normal Not Available [facility] & [address], [address], 09/27/2024 11:30:52 09/27/19 25 09/27/2024 CARDI OVASC ULAR REPOR T interpretati on Note Suppl emkartik al repor t is avail able. Not Available [address], [address], 09/27/2024 11:30:54 09/27/19 25 09/27/2024 CARDI OVASC ULAR REPOR T pdf . Not Available [facility] & [address], [address], 09/27/2024 11:30:54 09/27/19 25 09/27/2024 HEMOG LOBIN A1C hemoglobin A1C 5.6 % 4.8-5. 6 Predi abete s: 5.7 - 6.4 Diabe eliel: >6.4 Glyce mildred contr ol for adult s with diabe eliel: <7.0 Not Available [facility] & [address], [address], 09/27/2024 11:30:55 09/27/19 25 09/27/2024 CBC, PLATE LET, NO DIFFE RENTI AL WBC 6.8 x10e3 /uL 3.4-10 .8 Not Available [facility] & [address], [address], 09/27/2024 11:30:56 09/27/19 25 09/27/2024 CBC, PLATE LET, NO DIFFE RENTI AL RBC 4.29 x10e6 /uL 3.77-5 .28 Not Available [address], [address], 09/27/2024 11:30:56 09/27/19 25 09/27/2024 CBC, PLATE LET, NO DIFFE RENTI AL hemoglobin 14.4 g/dL 11.1-1 5.9 Not Available [address], [address], 09/27/2024 11:30:56 09/27/19 25 09/27/2024 CBC, PLATE LET, NO DIFFE RENTI AL hematocrit 43.1 % 34.0-4 6.6 Not Available [address], [address], 09/27/2024 11:30:56 09/27/19 25 09/27/2024 CBC, PLATE LET, NO DIFFE RENTI AL MCV 101 fL 79-97 above high normal Not Available [address], [address], 09/27/2024 11:30:56 09/27/19 25 09/27/2024 CBC, PLATE LET, NO DIFFE RENTI AL MCH 33.6 pg 26.6-3 3.0 above high normal Not Available [address], [address], 09/27/2024 11:30:56 09/27/19 25 09/27/2024 CBC, PLATE LET, NO DIFFE RENTI AL MCHC 33.4 g/dL 31.5-3 5.7 Not Available [address], [address], 09/27/2024 11:30:56 09/27/19 25 09/27/2024 CBC, PLATE LET, NO DIFFE RENTI AL RDW 13.0 % 11.7-1 5.4 Not Available [address], [address], 09/27/2024 11:30:56 09/27/19 25 09/27/2024 CBC, PLATE LET, NO DIFFE RENTI AL platelets 179 x10e3 /uL 150-45 0 Not Available [address], [address], 09/27/2024 11:30:56 08/04/19 24 08/03/2023 MAMMO , scree bart, digit al, bilat eral No observ ation record ed. dt[address], [address], 08/04/2023 11:51:12 08/12/19 25 08/11/2024 MAMMO , scree bart, digit al, bilat eral No observ ation record ed. dt[address], [address], 08/12/2024 17:19:24 09/02/19 25 09/01/2024 XR, chest No observ [facility] [address] [place], [address], 09/01/2024 15:18:13 Result Notes None recorded. Problems Name Problem SNOMED Code Status Onset Date Resolution Date Notes Provider Name and Address Organization Details Recorded Time Solitary nodule of lung 648737469 Active stable 3 mm LLL pulmonary nodule dating back 11/28/17. Two year stability KHALIDA STOUT NP Attn: Sudhakar garibay,[address] [facility], [place], [address], [facility] 1 09:56:04 Anxiety 08538160 Active 2018 Tammie Calero MA null, [place] [facility] 9 10:44:25 Hypertensi ve disorder 66201068 Active 2018 Tammie Calero MA null, [facility] 9 10:44:48 Hypothyroi dism 81103298 Active 2020 Daniella Padilla PA-C Attn: Sudhakar garibay,[address] [facility], [place], [address], [facility] 1 14:14:47 Notes:Thyroid Problem Notes None recorded. Procedures Surgical History Date Name Laterality Status Provider Name and Address Organization Details Recorded Time 08/19/19 Date of Last Mammogram completed Radha Hutton MA [facility] 07/15/2022 11:53:04 Caesarean Section completed Alexandru Calero MA [facility] 10/29/2017 12:20:05 thyroidectomy completed Tammie Calero MA [facility] 07/14/2018 10:45:41 Imaging Results None recorded. Procedure Notes None recorded. Medical Equipment None Reported. Allergies No known drug allergies Medications Name Sig Start Date Stop Date Status Note LastModified by Organization Details LastModified Time amoxicillin 500 mg capsule 02/13 completed Not Available Not Available Not Available clotrimazol e 10 mg cristela DISSOLVE SLOWLY 1 LOZENGE BY MOUTH THREE TIMES DAILY 09/26 completed Not Available Not Available Not Available alprazolam 1 mg tablet TAKE 1 TABLET BY MOUTH THREE TIMES DAILY NEEDED active Not Available Not Available No t Available hydrocodone 5 mg-acetamin ophen 325 mg tablet TAKE 1 OR 2 TABLETS BY MOUTH EVERY 6 HOURS NEEDED FOR PAIN active Not Available Not Available No t Available fluocinonid e 0.05 % topical gel [...] Not Available Not Available No t Available diphenoxyla te-atropine 2.5 mg-0.025 mg tablet 07/14 [...] TAKE 1 TABLET BY MOUTH EVERY DAY active Not Available Not Available No t Available levothyroxi ne 200 mcg tablet TAKE 1 TABLET BY MOUTH EVERY DAY IN THE MORNING active Not Available Not Available No t Available hydrochloro thiazide 25 mg tablet 06/08 completed Not Available Not Available Not Available albuterol sulfate HFA 90 mcg/actuati on aerosol inhaler INHALE 2 PUFFS BY MOUTH EVERY 6 HOURS NEEDED FOR WHEEZING 09/26 completed Not Available Not Available Not Available fluocinonid e 0.05 % topical cream APPLY TO AFFECTED AREA TWICE DAILY NEEDED 09/26 completed Not Available Not Available Not Available losartan 100 mg tablet TAKE 1 TABLET BY MOUTH DAILY active Not Available Not Available No t Available fluticasone propionate 50 mcg/actuati on nasal spray,suspe nsion SHAKE LIQUID AND USE 1 SPRAY IN EACH NOSTRIL EVERY DAY active Not Available Not Available No t [...] TAKE 1 TABLET BY MOUTH TWICE DAILY active Not Available Not Available No t Available fenofibrate 160 mg tablet Take 1 tablet every day by oral route for 90 days. 08/15 completed Not Available Not Available Not Available Aerochamber Plus Flow-Vu,Lar ge Mask USE WITH ALBUTEROL INHALER 09/26 completed Not Available Not Available Not Available Vitals Date Recorded Body height Body mass index (BMI) Body weight Heart rate Oxygen saturation Systolic And Diastolic Provider Name and Address Organization Details Last Updated DateTime 5 173.99 cm 36 kg/m2 142304. 62 g 80 /min 96 % 146/89 mm[Hg] Gertrudis Senior MA [facility] 5 12:15:58 Date Recorded Body height Body mass index (BMI) Body weight Respiratory rate Oxygen saturation Heart rate Systolic And Diastolic Provider Name and Address Organization Details Last Updated DateTime 5 173.99 cm 34.6 kg/m2 624801. 84 g 16 /min 95 % 94 /min 132/84 mm[Hg] Dina Lee MA [facility] 5 11:27:35 Date Recorded Body height Body mass index (BMI) Body weight Oxygen saturation Heart rate Systolic And Diastolic Provider Name and Address Organization Details Last Updated DateTime 4 173.99 cm 35.1 kg/m2 589353. 41 g 97 % 89 /min 152/84 mm[Hg] Gertrudis Senior MA [facility] 4 11:52:52 Social History Question Answer Notes LastModified by Organizat ion Details LastModified Time Tobacco Smoking Status Former Smoker quit 2007 Radha Hutton MA [facility] 07/15/2022 11:57:32 Do You Have An Advance Directive? No Information not available 08/09/2019 How Many Years Have You Consumed Alcohol? [...] No Information not available 08/15/2020 Are You Deaf Or Do You Have Serious Difficulty Hearing? No Information not available 12/12/2020 What Type Of Diet Are You Following? REGULAR Information not available 07/14/2018 Which Illicit Or Recreational Drugs Have You Used? None Information not available 07/14/2018 Education 2 Year College Information not available 08/09/2019 Frequent Air Travel No [email or web address] Information not available 06/08/2020 Are There Any Guns Present In Your Home? No Information not available 12/12/2020 Hard Of Hearing Or Deaf In One Or Both Ears? No Information not available 08/09/2019 Legally Blind In One Or Both Eyes? No Information not available 08/09/2019 Live Alone Or With Others? Alone Information not available 07/15/2022 Long Commute/limited Mobility No Information not available 06/08/2020 What Was The Date Of Your Most Recent Tobacco Screening? 09/26/2024 Information not available 09/26/2024 How Many Children Do You Have? 3 [...] To Smoke? Yes Information not available 08/09/2019 How Much Tobacco Do You Smoke? No Information not available 07/15/2022 General Stress Level Medium Information not available 08/09/2019 Do You Use Sunscreen Routinely? No Information not available 07/15/2022 Has Tobacco Cessation Counseling Been Provided? Yes Information not available 07/15/2022 On What Date Was Tobacco Cessation Counseling Provided? 09/26/2024 Information not available 09/26/2024 How Many Years Have You Smoked Tobacco? 30 Information not available 10/29/2017 Sex: Female Functional Status Question Answer Note LastModified by Organizat ion Details LastModified Time Do you use any illicit or recreational drugs? No [email or web address] Information not available 09/07/2020 Do you or have you ever used any other forms of tobacco or nicotine? No [email or web address] Information not available 09/07/2020 What is your level of alcohol consumption? Heavy 07/15/22 12 pack beer every night Information not available 07/15/2022 Do you or have you ever used smokeless tobacco? Never used smokeless tobacco Information not available 08/09/2019 Are you currently employed? Yes Information not available 08/09/2019 Are you able to care for yourself independently? 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 Never used electronic cigarettes Information not available 08/09/2019 What is your exercise level? None [email or web address] Information not available 06/08/2020 Mental Status Question Answer Note LastModified by Organization D etails LastModified Time Do you feel stressed (tense, restless, nervous, or anxious, or unable to sleep at night)? [id number] Information not available 07/15/2022 Family History Relationship Description Onset Age of this Age Resolved Age Notes LastModified by Organization Details LastModified Time Father Harmful pattern of use of alcohol [email or web address] Not available 10/29 12:16:13 Father Heart disease [email or web address] Not available 10/29 12:16:48 Notes:Patient noted Breast C ancer and Diabetes but no relation Medical History Condition Response Coronary Artery Disease N Other N Gout N Thyroid Disease N High Blood Pressure Y Atrial Fibrillation N Emphysema N Depression N COPD N [...] Anemia N Multiple Sclerosis N Heart Attack (PR) N Mental Illness N Diabetes N Seizures/Epilepsy [...] Details Recorded Time zoster live 7 completed Getrrudis Senior [place] null, [place] [facility] 04/29/2023 12:08:47 Influenza, split virus, quadrivalent, preservative 9 completed Not Available [facility] 07/09/2019 02:41:59 Influenza, split virus, quadrivalent, preservative 0 completed KHALIDA STOUT NP Attn: [address]ing[address] [place], [address], [place] [facility] 06/08/2020 16:36:37 COVID-19, mRNA, [...] [facility] 04/17/2023 12:12:36 Pneumococcal conjugate PCV20, polysaccharide NOO282 conjugate, adjuvant, PF 4 completed Gertrudis Senior [place], [place] [facility] 04/08/2024 14:18:03 Past Encounters Encounter ID Performer Location Encounter Start Date Encounter Closed Date Diagnosis/Indication Diagnosis SNOMED-CT Code Diagnosis ICD10 Code Diagnosis IMO Codes Diagnosis Note [id number] Jerome Raphael MD [facility] [address] [place] [address] 10/29/2017 12:03:45 10/29/2017 13:04:34 Ulcerative colitis 45875266 K51.00 Chronic cough 35696941 R 05 [id number] Jerome Raphael MD [facility] [address] [place] [address] 12/01/2017 11:17:26 12/01/2017 11:56:47 Solitary nodule of lung 852600245 R91.1 [id number] [facility] [address] [place] [address] 05/26/2018 11:29:24 05/26/2018 12:48:05 Generalized anxiety disorder 69967853 F41.1 Chronic depression 83722 000 F34.1 Essential hypertension 73799932 I10 Hypothyroidism 58243891 E00.0 [id number] Daniella Padilla PA-C [facility] [address] [place] [address] 07/14/2018 10:32:59 07/14/2018 11:33:25 Ex-smoker 2729473 Z87.891 patient has been smoke free for 5-6 years Alcohol dependence 41076 003 F10.20 Chronic depression 52904 8 F34.1 [id number] Daniella Padilla PA-C [facility] [address] [place] [address] 08/02/2018 10:49:28 08/02/2018 11:51:19 Chronic depression 843319598 F34.1 [id number] Daniella Padilla PA-C [facility] [address] [place] [address] 2019 12:07:12 2019 13:38:21 Administration of influenza vaccine 69856868 Z23 Consent signed sd,rma Epidermoid cyst of skin 949665665 L72.3 Alcohol dependence 05786 003 F10.20 [id number] Daniella Padilla PA-C [facility] [address] [place] [address] 08/09/2019 11:44:31 08/09/2019 13:45:12 Essential hypertension 43652004 I10 Persistent cough 6548443 02 R05 Dyspnea on exertion 6084 5006 R06.09 Alcohol dependence 29904 003 F10.20 [id number] NEDA Marshall [facility] [address] [place] [address] 08/15/2019 14:28:23 08/15/2019 15:30:49 Primary hypertriglyceridemia 022675287 E78.1 Multiple n odules of lung 145252457 R91.8 [id number] Daniella Padilla PA-C [facility] [address] [place] [address] 08/31/2019 10:31:12 08/31/2019 12:19:25 Alcohol dependence 45299412 F10.20 Primary hypertriglyceridemia 124565365 E78.1 Multiple n odules of lung 135139632 R91.8 [id number] Daniella Padilla PA-C [facility] [address] [place] [address] 01/18/2020 09:33:57 01/18/2020 16:42:00 Solitary nodule of lung 886591227 R91.1 [id number] Daniella Padilla PA-C [facility] [address] [place] [address] 03/21/2020 09:36:35 03/21/2020 13:12:43 Essential hypertension 86239203 I10 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 731559744 E06.3 [id number] Jerome Raphael MD [facility] [address] [place] [address] 04/11/2020 11:59:31 04/11/2020 13:38:47 Chronic cough 82086890 R05 [id number] Jerome Raphael MD [facility] [address] [place] [address] 05/11/2020 12:21:09 05/11/2020 14:13:42 Chronic cough 86917019 R05 [id number] Malachi Andrade MD [facility] (Adult Med) [address] [place] [address] 06/08/2020 15:05:09 06/11/2020 18:26:03 Chronic cough 08720613 R05 Dyspnea on exertion 6084 5006 R06.09 PFT Obstructiv e sleep apnea syndrome 96446876 G47.33 HSAT Administra tion of influenza vaccine 15791733 Z23 [id number] Daniella Padilla PA-C [facility] [address] [place] [address] 08/15/2020 11:04:20 08/15/2020 18:59:21 Long-term drug therapy 129092657 Z79.899 Essential hypertension 62961762 I10 Hypothyroidism 57847444 E00.0 Alcohol dependence 20173 003 F10.20 Generalize d anxiety disorder 02196179 F41.1 Chronic depression 72433 0009 F34.1 [id number] MD [facility] (Adult Med) [address] [place] [address] 09/07/2020 14:10:46 09/10/2020 13:57:01 Chronic cough 46249092 R05 recommend trying tessalon perles that have been prescribed to her, OTC delsym . multifacto rial Obstructiv e sleep apnea syndrome 94294141 G47.33 Home sleep apnea testing ordered, awaiting competion Pulmonary emphysema 8743 3001 J43.9 mild air trapping and hyperinfla tion noted Albuterol as needed Ex-smoker 5202806 Z87.89 1 1ppd for 30 years. Will order LDCT, lung cancer screening. Discussed risk/benef its, importance of annual screening adherence. Body mass index 30+ - obesity 386043445 Z68.34 Solitary n odule of lung 951260833 R91.[address] 02/02/20 : stable 3 mm LLL pulmonary nodule dating back 11/28/17. Two year stability [id number] MD Donny Solis 14 IM [address] [facility] [address] [place] [address] 10/10/2020 11:29:18 10/11/2020 16:25:45 Administration of SARS-CoV-2 antigen vaccine 755048943 Z23 [id number] MD Donny Solis 14 IM [address] [facility] [address] [place] [address] [address] 11/07/2020 11:35:35 11/08/2020 12:37:32 Administration of SARS-CoV-2 antigen vaccine 445526905 Z23 [id number] Jerome Raphael MD [facility] [address] [place] [address] 12/12/2020 11:14:04 12/19/2020 07:59:11 Lump in upper outer quadrant of right breast 7629814430 22752 N63.11 Hematochezia 059196223 K 92.1 Solitary n odule of lung 040738425 R91.1 [id number] Daniella Padilla PA-C [facility] [address] [place] [address] 05/13/2021 11:13:56 05/13/2021 12:17:23 Body mass index 30+ - obesity 685004907 Z68.33 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 755579899 E06.3 Essential hypertension 81844853 I10 Screening for malignant neoplasm of colon 606755724 Z12.11 Anxiety 58576774 F41.9 [id number] Daniella Padilla PA-C [facility] [address] [place] [address] 05/22/2021 10:32:48 05/22/2021 11:40:10 Active or passive immunization 180223484 Z23 [id number] Jerome Raphael MD [facility] [address] [place] [address] 10/23/2021 10:25:25 10/23/2021 12:22:46 Administration of SARS-CoV-2 mRNA vaccine 7949215301 Z23 [id number] Daniella Padilla PA-C [facility] [address] [place] [address] 11/12/2021 15:41:47 11/12/2021 16:29:13 Cheilosis 16056818 K13.0 [id number] Jerome Raphael MD [facility] [address] [place] [address] 11/28/2021 11:34:19 11/28/2021 12:19:09 Alcoholic fatty liver 28922977 K70.0 Esophageal dysphagia 408 11612 R13.19 Hemoptysis 96805106 R04. 2 [id number] Daniella Padilla PA-C [facility] [address] [place] [address] 04/30/2022 10:30:05 04/30/2022 11:13:13 Long-term drug therapy 207454580 Z79.899 Overweight 088706875 E66 .3 Essential hypertension 38934087 I10 Hypothyroidism 70039026 E00.0 Alcohol dependence 31705 003 F10.20 Administra tion of influenza vaccine 21495808 Z23 Consent signed sd,a [id number] CRISTIANE TORRES MD [facility] ([facility]) [address] [place] [address] 07/15/2022 11:41:21 07/23/2022 14:57:55 Screening for malignant neoplasm of cervix 005611483 Z12.4 - Due for co-testing ; collected today Screening for malignant neoplasm of breast 190374501 Z12.31 - History of BIRADS 2 on breast US, 08/19/2021; routine screening recommende d- Due for screening mammogram; ordered today Hypertensive disorder 38 883750 I10 - BP not controlled today; will need to follow up with PCP [id number] Daniella Padilla PA-C [facility] [address] [place] [address] 10/31/2022 10:35:26 11/04/2022 09:09:51 Iron deficiency anemia 42951604 D50.8 Fatigue 23420738 R53.83 Overweight 065379315 E66 .3 Generalize d anxiety disorder 76775003 F41.1 Solitary n odule of lung 707109171 R91.1 Hypothyroidism 97057024 E00.0 Essential hypertension 50541324 I10 Chronic depression 18577 0009 F34.1 [id number] Jerome Raphael MD [facility] [address] [place] [address] 02/13/2023 14:51:37 02/16/2023 12:33:35 Hypertensive disorder 13809509 I10 Chronic depression 19747 0009 F34.1 Chronic al coholism in remission 136020173 F10.21 Overweight 933109212 E66 .3 [id number] Daniella Padilla PA-C [facility] [address] [place] [address] 03/09/2023 10:57:43 03/11/2023 15:14:12 Adult health examination 527988219 Z00.00 Overweight 723715144 E66 .3 [id number] Daniella Padilla PA-C [facility] [address] [place] [address] 04/17/2023 12:00:45 04/20/2023 16:20:22 Administration of influenza vaccine 30881346 Z23 [place] signed [place],a [id number] Jerome Raphael MD [facility] [address] [place] [address] 12/15/2023 11:35:02 12/17/2023 20:58:23 Mixed anxiety and depressive disorder 467146308 F41.8 Overweight 732614396 E66 .3 Generalize d anxiety disorder 87117266 F41.1 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 655378223 E06.3 Essential hypertension 68605952 I10 [id number] Jerome Raphael MD [facility] [address] [place] [address] 04/08/2024 14:06:58 04/18/2024 10:18:24 Administration of pneumococcal vaccine 43072154 Z23 [id number] Jerome Raphael MD [facility] [address] [place] [address] 06/24/2024 12:05:12 06/27/2024 10:56:05 Essential hypertension 42613574 I10 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 529089894 E06.3 Overweight 660099376 E66 .3 [id number] Jerome Raphael MD [facility] [address] [place] [address] 09/26/2024 11:20:18 09/28/2024 13:22:11 Upper respiratory infection 85654304 J00 Acquired hypothyroidism 535916870 E00.0 Unintentio nal weight gain 0919234936 81224 R63.5 Alcohol dependence 90856 003 F10.20 Health Concerns Section Related Observation LastModified by Organization Detai ls LastModified Time None Recorded Concern Status LastModified by Organization Details LastModified Time None Recorded Advance Directives Directive N: Payers Insurance Date Sequence Insurance Name Policy Number Policy Xiao Covered Member ID Xiao Member ID Guarantor Name 05/14/2025 1 [facility] (MEDICAID HMO) [id number] Keya Arboleda [id number] Keya Arboleda Notes Date Note Type Note Provider Name and Address Organization Details Recorded Time 12/15/2023 text/html ROS as noted in the HPI Patient presents to clinic needing refill of alprazolam and levothyroxine. No complaints or concerns. Has been close to a year since previous visit. Was seen about a month ago for chronic cough. Still coughing some, but better. Has recently put on weight and therefore is causing her shortness of breath. Denies chest pain. Denies swelling. Former smoker. Daniella Padilla PA-C Attn: [address] [place], [address], [facility] 12/15/2023 12:22:57 06/24/2024 text/html ROS as noted in the HPI annual check up...needs labs...htn and low thyroid... Daniella Padilla PA-C Attn: [address] [place], [address], [facility] 06/24/2024 13:05:53 09/26/2024 text/html ROS as noted in the HPI 2 weeks ago hac flu and strep throat...treated resolved ...still has sinus symptoms nasal congestion...also explore weight loss drugs...etoh use...3 month vs control..all managed well Daniella Padilla PA-C Attn: Accounting[address] [place], [address], [facility] 09/26/2024 12:11:55 OBGyn Episode Ob Episode Information Episode Created Date Number of Fetuses Patient Bloodtype Patient rh Status Prepregnancy Weight lbs Domestic Partner Domestic Partner Phone Father Name Wrecking Crane Engine Operator Status 08/09/19 20 1 CLOSED Fetus Data First Name Last Name Admitted to NICU Weight (g) Sex Living Outcome Pediatric Complications Fetus ID Race Codes Race Delivery Type [id number] Leo Calculation Initial Leo Date Initial Exam [...] Domestic Partner Domestic Partner Phone Father Name Wrecking Crane Engine Operator Status 08/09/19 20 1 CLOSED Fetus Data First Name Last Name Admitted to NICU Weight (g) Sex Living Outcome Pediatric Complications Fetus ID Race Codes Race Delivery Type [id number] Leo Calculation Initial Leo Date Initial Exam [...] Domestic Partner Domestic Partner Phone Father Name Wrecking Crane Engine Operator Status 08/09/19 20 1 CLOSED Fetus Data First Name Last Name Admitted to NICU Weight (g) Sex Living Outcome Pediatric Complications Fetus ID Race Codes Race Delivery Type [id number] Leo Calculation Initial Leo Date Initial Exam [...]
--- OUTSIDE RECORDS SUMMARY | 2025-05-24 14:22 | XMS_ITS | Encounter Summary ---
Author Organization [facility] Address [address] [place] [address] Phone Care Team Providers Care Rubber Covering Machine Operator Name Role Phone Shravan Padilla Primary Care Provider [phone] Heidy Brandon MD Unavailable [phone] Reason for Visit * Reason Comments Medication Refill Encounter Details Date Type Department Care Team (Late st Contact Info) Description 01/31/2022 Refill [facility] - Gastroenterology - [address] [place] [address] Alyssa Ulloa Jessica, PAC [address] [place] [address] Medication Refill Social History Tobacco Use Types [...] AM CDT Medication refilled and signed per [facility] chronic medication standing order for pediatric and adult patients. documented in this encounter Plan of Treatment Not on file documented as of this encounter Visit Diagnoses Not on filedocumented in this encounter Additional Health Concerns Infection Onset Date Last Indicated Resolved Time COVID - 19 02/19/2024 02/19/2024 02/19/2024 11:4 2 AM CDT documented as of this encounter Care Teams Rubber Covering Machine Operator Relationship Specialty Start Date End Date Shravan Padilla [facility] [address] [place] [address] PCP - General Physician Radio Division Officer 10/30/17 Heidy Brandon MD [address] [place] [address] Consulting Physician Gastroenterology 05/22/22 documented as of this encounter
--- OUTSIDE RECORDS SUMMARY | 2025-05-24 14:22 | XMS_ITS | Encounter Summary ---
Author Organization [facility] Address [address] [place] [address] Phone Care Team Providers Care Jacquard Loom Fixer Name Role Phone Shravan Hernandez MD Primary Care Provider [phone] Shravan Padilla Primary Care Provider [phone] Rafat Carmichael MD Unavailable [phone] Encounter Details Date Type Department Care Team (Late st Contact Info) Description 09/07/2017 Orders Only [facility] ProviderBon MD [facility] [place] [address] Social History Tobacco Use Types Packs/Day Years Used Date Smoking Tobacco: Former Smokeless Tobacco: Never Comments:Smoking History Pac ks/day: 0.4 Packs Alcohol Use Standard Drinks/Week Comments Yes 0 (1 standard drink = 0.6 oz pur e alcohol) Comments Unknown Sex and Gender Information Value Date Recorded Sex Assigned at Not on file Legal Sex Female 2:01 PM INSTITUTION DIRECTOR Gender Identity Not on file Sexual Orientation Not on file documented as of this encounter Functional Status * In the past year, patient experienced: Question Answer Date of Assessment Author One or more falls in the las t year No 09/07/2017 2:46 PM Danay Segura MA * BP Location Answer Date of Assessment Author Left arm 09/07/2017 2:31 PM Danay Segura MA * BP Location Answer Date of Assessment Author Left arm 09/07/2017 2:31 PM CDT Danay Payton MA documented as of this encounter Plan of Treatment Not on file documented as of this encounter Procedures Procedure Name Priority Date/Time Associated Diagnosis Comments DISCHARGE LABORATORY CUMULATIVE REPORT 09/07/2017 12:00 AM CDT documented in this encounter Results * DISCHARGE LABORATORY CUMULATIVE REPORT (09/07/2017 12:00 AM CDT) Narrative 09/07/2017 12:00 AM CDT Ordered by an unspecified provider. us Historical Provider LAB BLOOD ORDERABLES Mesha l Result documented in this encounter Visit Diagnoses Not on filedocumented in this encounter Additional Health Concerns Infection Onset Date Last Indicated Resolved Time COVID: Suspected 02/15/2022 02/15/2022 02/15/2022 11:09 AM CDT documented as of this encounter Care Teams Jacquard Loom Fixer Relationship Specialty Start Date End Date Shravan Hernanedz MD PCP - General 12/11/14 10/20/21 Shravan Padilla PA [address] [place] [address] PCP - General 10/21/21 Rafat Carmichael MD [address] [place] [address] Referring Physician Dermatology 04/19/24 documented as of this encounter
--- OUTSIDE RECORDS SUMMARY | 2025-05-24 14:22 | XMS_ITS | Clinical Summary ---
Author Organization [facility] Address [address] [place] [address] Care Team Providers Care Chief Gauger Name Role Phone Shravan Padilla Primary Care Provider [phone] Rafat Carmichael MD Unavailable Allergies No known active allergies Medications hydroCHLOROthia [...] Active Additional Information Patient not taking.Reported on 09/20/2024 levothyroxine (SYNTHROID) 25 mcg tablet Take 1 tablet (25 mcg total) by mouth daily 4 Active albuterol HFA (PROVENTIL HFA,VENTOLIN HFA,PROAIR HFA) 90 mcg/actuation inhalerIndicati ons:Bacterial URI Inhale 2 puffs every 6 (six) hours as needed for wheezing 3 each 4 4 Active Additional Information Patient not taking.Reported on 09/20/2024 losartan (COZAAR) 100 mg tablet Take 1 tablet (100 mg total) by mouth daily 5 Active Active Problems Problem Noted Date Diagnosed Date Lesion of gingiva 09/20/2024 Hemoptysis 12/13/2021 Dysphagia 12/05/2021 Overview (12/05/2021): Added automatically from request for surgery [id number] Encounter for screening colonoscopy 06/28/2021 Overview (06/28/2021): Added automatically from request for surgery [id number] Postoperative hypothyroidism 10/26/2017 Primary insomnia 10/26/2017 Generalized anxiety disorder 10/26/2017 Essential hypertension 09/22/2017 BMI 31.0-31.9,adult 08/06/2017 Assessment & Plan (08/06/2017 10:51 AM VALUE ANALYSIS COORDINATOR): Recommended patient to continue to increase heart healthy diet with adequate fruits, vegetables, and plenty of water along with mild-moderate daily exercise as tolerated. Resolved Problems Problem Noted Date Diagnosed Date Resolved Date Cat bite of hand 08/06/2017 09/22/2017 Assessment & Plan (08/06/2017 11:02 AM VALUE ANALYSIS COORDINATOR): Augmentin prescribed to take twice daily for [...] with food was advised along with probiotics [id number] as well. Need for prophylactic vaccin ation or inoculation against diphtheria and tetanus 08/06/2017 09/22/2017 Assessment & Plan (08/06/2017 11:02 AM VALUE ANALYSIS COORDINATOR): Tdap vaccination provided office today due to [...] on file Legal Sex Female 2:01 PM VALUE ANALYSIS COORDINATOR Gender Identity Not on file Sexual Orientation Not on file Last Filed Vital Signs Vital Sign Reading Time Taken Comments Blood Pressure 145/79 04/19/2024 10:01 AM CDT Pulse 84 04/19/2024 10:01 AM CDT Temperature 36.3 C (97.3 F) 11/04/2023 10:55 AM CDT Respiratory Rate 18 04/19/2024 10:0 1 AM CDT Oxygen Saturation 97% 04/19/2024 10: 01 AM CDT Inhaled Oxygen Concentration - - Weight 105.1 kg (231 lb 9.6 oz) 025 10:52 AM CDT Height 172.7 cm (5' 7.99) 04/19/2024 1 0:01 AM CDT Body Mass Index 35.22 04/19/2024 10:01 AM CDT Plan of Treatment Health Maintenance Due Date Last Done Comments Cervical Cancer Screening 1960 Hepatitis B Screening 1979 Regular Well Visit/Exam 18-64 1979 Osteoporosis Screening-Bone Density Scan 01/10/2013 01/10/2011 Zoster Vaccine (2 of 3) 02/11/2017 12/17/2016 Depression Screening 10/26/2018 10/26/2017, 09/22/2017, 09/07/2017, Additional history exists Influenza Vaccine (#1) 2025 , 05/22/2021, 06/08/2020, Additional history exists Breast Cancer Screening-Mammogram 08/11/2025 08/11/2024, 08/11/2024, 08/03/2023, Additional history exists DTaP/Tdap/Td Vaccine (3 - [...] Faith MD - 11/22/2021 7:57 AM CDT [facility] Patient Name: Keya Arboleda Procedure Date: 11/22/2021 7:57 AM Date of : 1960 Admit Type: Outpatient Age: 61 Gender: Female Attending MD: Enrico Faith M.D. Room: [facility] 2 Note Status: Finalized Patient [...] scope was passed under direct vision. TheColonoscope [id number] was introduced through the anus and advanced [...] malignant neoplasm of colon CPT copyright 2020 [employer]. All rights reserved. The codes documented in this report are preliminary and upon clock repair technician reviewmay be revised to meet current compliance requirements. Recognized by the [employer] for promoting quality [...] C SCREENING (07/15/2016) HEP C Normal Comment:Negative Bon Holt MD HEALTH MAINTENANCE Final Result * DEXA SCAN (01/10/2011) [facility] DEXA Scan Normal us Historical Provider HEALTH MAINTENANCE Final Result from Last 3 Months or Most Recently Relevant to Health Maintenance Insurance Advance Directives For more information, please contact: [phone] * Full Code (Latest Code Status on File) Date Activated Date Inactivated Comments 12/13/2021 10:51 AM 12/13/2021 4:47 PM * Full Code Date Activated Date Inactivated Comments 12/13/2021 10:51 AM 12/13/2021 10:51 AM * Full Code Date Activated Date Inactivated Comments 11/22/2021 8:00 AM 11/22/2021 2:09 PM * Full Code Date Activated Date Inactivated Comments 11/22/2021 8:00 AM 11/22/2021 8:00 AM Care Teams Chief Gauger Relationship Specialty Start Date End Date Shravan Padilla PA [address] [place] [address] PCP - General 10/21/21 Rafat Carmichael MD [address] [place] [address] Referring Physician Dermatology 04/19/24
--- OUTSIDE RECORDS SUMMARY | 2025-05-24 14:22 | XMS_ITS | Encounter Summary ---
Author Organization [facility] Address [address] [place] [address] Phone Care Team Providers Care Coal Washer Name Role Phone Shravan Padilla Primary Care Provider Heidy Brandon MD Unavailable [phone] Reason for Referral * Radiology Services (Routine) - Closed Specialty Diagnoses / Procedures Referred By Rea t Referred To Contact Radiology Diagnoses Encounter for screening mammogram for breast cancer Procedures ROBERT SCREENING BILATERAL DIGITAL W CAD W RADHA Shravan Padilla PAC [address] [place] [address] Phone: tel: fax: Referral ID Status Reason Start Date Expiration Date Visits Re quested Visits Authorized [id number] Closed 07/20/2024 1 1 K CAPTAIN Encounter Details Date Type Department Care Team (Late st Contact Info) Description 07/20/[address] [facility] Central Scheduling [address] [place] [id number] Shravan Padilla PAC [address] [place] [address] Encounter for screening mammogram for [...] W CAD W RADHA (08/11/2024 9:44 AM BLOCK CAPTAIN) Anatomical Region Laterality Modality breast Bilateral Mammography 08/11/2024 9:31 AM BLOCK CAPTAIN Narrative 08/12/2024 9:11 AM BLOCK CAPTAIN - ROBERT SCREENING BILATERAL DIGITAL W CAD [...] to exams dated: 12/28/2020, 07/23/2022, and 08/03/2023 [facility]. BREAST TISSUE:There are scattered areas of fibroglandular [...] exam. Electronically signed by: Reji mike/jacki:08/11/2024 15:56:02 Steam Fitter(s): RT Maye(R)(M), [facility] letter sent: Normal Exam Reading location: [facility] [...] to exams dated: 12/28/2020, 07/23[facility]2022, [facility] BREAST TISSUE:There are scattered areas of [...] exam. Electronically signed by: Reji mike/jacki:08/11/2024 15:56:02 Steam Fitter(s): RT Maye(R)(M), [facility] letter sent: Normal Exam Reading location: [facility] Mammogram BI-RADS: Category 2: Benign us Shravan HADLEY IMG MAMMO ORDERABLES Final Re sult documented in this encounter Visit Diagnoses Diagnosis Encounter for screening mammogram for breast cancer- Primary Encounter for screening mammogram for breast cancer documented in this encounter Care Teams Coal Washer Relationship Specialty Start Date End Date Shravan Padilla PAC [address] [place] [address] PCP - General Physician Switch Repairer 10/30/17 Heidy Brandon MD [address] [place] [address] Consulting Physician Gastroenterology 05/22/22 documented as of this encounter
--- OUTSIDE RECORDS SUMMARY | 2025-05-24 14:22 | XMS_ITS | Clinical Summary ---
Author Organization [facility] Address [address] [facility] [address] [place] [address] Phone Care Team Providers Care Scorer Single Name Role Phone Shravan Padilla Primary Care Provider [phone] Heidy Brandon MD Unavailable [phone] Allergies No known active allergies Medications [...] Acquired hypothyroidism 08/20/2021 Benign essential HTN 08/20/2021 Immunizations Immunization Administration Dates Next Due Influenza [...] 102.5 kg (226 lb) 05/22/2022 8:38 AM LOGISTICS ASSOCIATE Height 172.7 cm (5' 8) 05/22/2022 8:38 AM LOGISTICS ASSOCIATE Body Mass Index 34.36 05/22/2022 8:38 AM LOGISTICS ASSOCIATE Plan of Treatment Health Maintenance Due Date Last Done Comments Pap Smear 1982 Cervical Cancer Screening (CCS) 1991 HPV/Cotest 1991 Cologuard 2006 Immunochemical Fecal Occult Blood 2006 Zoster Immunization (2 of 3) 02/11/2017 12/17/2016 Influenza Immunization (#1) 2025 10/2 12/2022, 04/30/2022, 05/22/2021, Additional history exists SARS-COV-2 Immunization ( season) 2025 10/23/2021, 11/07/2020, 10/10/2020 Mammogram 08/11/2025 08/11/2024, 07/23, 07/23/2022, Additional history exists Td Immunization Every 10 Years (Adults With 1 Tdap) 08/06/2027 08/06/2017, 03/12/2009 Colonoscopy 11/23/2031 11/22/2021, 09/16/2017 Colorectal Cancer Screening 11/23/2031 Respiratory Syncytial Virus (RSV) Immunization (Adult) (1 - 1-dose 75+ series) 2036 DTaP/Tdap/Td Immunization Discontinued 08/06/2017, Hepatitis C Virus (HCV) Screening Completed 02/23/2018 Pneumococcal Immunization (50+ years) Completed 04/08/2024 Pneumococcal Immunization Combined Discontinued 04/08/2024 Hepatitis B Immunization Aged Out No longer eligible based on patient's age to complete this topic Human Papillomavirus (HPV) Immunization Aged Out No longer eligible based [...] CAD W RADHA Routine 08/11/2024 9:44 AM LOGISTICS ASSOCIATE Encounter for screening mammogram for breast cancer HEPATITIS PANEL ACUTE (AHP) Routine 02/23/2018 10:57 AM CDT Encounter for hepatitis C screening test for low risk patient HM COLONOSCOPY Routine 09/16/2017 from Last 3 Months or Most Recently Relevant to Health Maintenance Results * ROBERT SCREENING BILATERAL DIGITAL W CAD W RADHA (08/11/2024 9:44 AM LOGISTICS ASSOCIATE) Anatomical Region Laterality Modality breast Bilateral Mammography 08/11/2024 9:31 AM LOGISTICS ASSOCIATE Narrative 08/12/2024 9:11 AM LOGISTICS ASSOCIATE - ROBERT SCREENING BILATERAL DIGITAL W [...] to exams dated: 12/28/2020, 07/23/2022, and 08/03/2023 [facility]. BREAST TISSUE:There are scattered areas of fibroglandular [...] exam. Electronically signed by: Reji mike/jacki:08/11/2024 15:56:02 Vending Enterprises Supervisor(s): RT Maye(R)(M), [facility] letter sent: Normal Exam Reading location: [facility] [...] to exams dated: 12/28/2020, 07/23/2022, and 08/03/2023 [facility]. BREAST TISSUE:There are scattered areas of fibroglandular [...] exam. Electronically signed by: Reji mike/jacki:08/11/2024 15:56:02 [employer] Supervisor(s): RT Maye(R)(M), [facility] letter sent: Normal Exam Reading location: [facility] Mammogram BI-RADS: Category 2: Benign us [facility] Pad[facility] Final Re sult * HEPATITIS PANEL ACUTE (AHP) (02/23/2018 10:57 AM CDT) HEPATITIS A IGM ANTIBODY NON DETECTED NON DETECTED 02/24/2018 1:19 AM CDT [facility] Comment: IGM Antibodies to HAV not detected. Does not exclude early acute or recovered HAV infection. HEP B CORE AB (IGM) NON DETECTED NON DETECTED 02/24/2018 1:19 AM T [facility] Comment: IGM anti-HBC not detected. Does not exclude the possibility of exposure to or infection with HBV. HEPATITIS B SURFACE ANTIGEN NON DETECTED NON DETECTED 02/24/2018 1:19 AM [facility] Comment: A nonreactive test result does not [...] antibody 0.11 <1 S/CO 02/24/2018 1:19 AM [facility] Comment: Signal/Cutoff ratio < 0.79 is Nondetected Signal/Cutoff ratio 0.80-0.99 is Grayzone Signal/Cutoff ratio > 0.99 is Detected Supplemental assays are recommended if signal/cutoff ratio is >/=1.00. Signal/cutoff ratio result >/= 5.00 is 97% predictive of positivity for recombinant immunoblot assay (RIBA) and will be reported to the [place] Department of Public Health as required. Blood specimen (specimen) Venipuncture / Unknown 02/23/2018 10:57 AM CDT 02/23/2018 11:42 AM CDT us Paula Hernandez VOICE INTERCEPT TECHNICIAN, DIRECTOR INFORMATICS HEMATOLOGY ORDERA BLES Final Result [facility] [address] [place] [address], * COLONOSCOPY (09/16/2017) us Juliano Minor MD PROCEDURE/MINOR SURGICAL O RDERABLES Final Result from Last 3 Months or Most Recently Relevant to Health Maintenance Insurance MEDICAID TURNER Care Teams Scorer Single Relationship Specialty Start Date End Date Shravan Padilla PAC [address] [place] [address] PCP - General Physician Billing Supervisor 10/30/17 Heidy Brandon MD [address] [place] [address] Consulting Physician Gastroenterology 05/22/22
[2025-05-24] MEDS: KETOROLAC (*BKC) 60 MG/2 ML VIAL IM (14:23)
[2025-05-24 14:32] VITALS: BP 167/88; PULSE 78; RESP 18; O2SAT 99
--- OUTSIDE RECORDS SUMMARY | 2025-05-24 14:48 | XMS_ITS | Clinical Summary ---
Author Organization [facility] Address [address] [place] [address] Care Team Providers Care Coach Wirer Name Role Phone Shravan Padilla Primary Care Provider [phone] Rafat Carmichael MD Unavailable [phone] Allergies No known active allergies Medications hydroCHLOROthia [...] (12/05/2021): Added automatically from request for surgery [id number] Encounter for screening colonoscopy 06/28/2021 Overview (06/28/2021): Added automatically from request for surgery [id number] Postoperative hypothyroidism 10/26/2017 Primary insomnia 10/26/2017 Generalized anxiety disorder 10/26/2017 Essential hypertension 09/22/2017 BMI 31.0-31.9,adult 08/06/2017 Assessment & Plan (08/06/2017 10:51 AM ACTIVITY SPECIALIST): Recommended patient to continue to increase heart healthy diet with adequate fruits, vegetables, and plenty of water along with mild-moderate daily exercise as tolerated. Resolved Problems Problem Noted Date Diagnosed Date Resolved Date Cat bite of hand 08/06/2017 09/22/2017 Assessment & Plan (08/06/2017 11:02 AM ACTIVITY SPECIALIST): Augmentin prescribed to take twice daily for [...] with food was advised along with probiotics [id number]-[id number] as well. Need for prophylactic vaccin ation or inoculation against diphtheria and tetanus 08/06/2017 09/22/2017 Assessment & Plan (08/06/2017 11:02 AM ACTIVITY SPECIALIST): Tdap vaccination provided office today due to [...] on file Legal Sex Female 2:01 PM ACTIVITY SPECIALIST Gender Identity Not on file Sexual Orientation [...] Female Attending MD: Enrico Faith M.D. Room: [facility] ROOM 2 Note Status: Finalized Patient [...] scope was passed under direct vision. TheColonoscope [id number] was introduced through the anus and advanced [...] malignant neoplasm of colon CPT copyright 2020 [employer]. All rights reserved. The codes documented in this report are preliminary and upon clam picker reviewmay be revised to meet current compliance requirements. Recognized by the [employer] for promoting quality [...] MAINTENANCE Final Result * DEXA SCAN (01/10/2011) [facility] DEXA Scan Normal us Historical Provider HEALTH MAINTENANCE Final Result from Last 3 Months or Most Recently Relevant to Health Maintenance Insurance Advance Directives For more information, please contact: [phone] * Full Code (Latest Code Status on File) Date Activated Date Inactivated Comments 12/13/2021 10:51 AM 12/13/2021 4:47 PM * Full Code Date Activated Date Inactivated Comments 12/13/2021 10:51 AM 12/13/2021 10:51 AM * Full Code Date Activated Date Inactivated Comments 11/22/2021 8:00 AM 11/22/2021 2:09 PM * Full Code Date Activated Date Inactivated Comments 11/22/2021 8:00 AM 11/22/2021 8:00 AM Care Teams Coach Wirer Relationship Specialty Start Date End Date Shravan Padilla PA [address] [place] [address] PCP - General 10/21/21 Rafat Carmichael MD [address] [place] [address] Referring Physician Dermatology 04/19/24
--- OUTSIDE RECORDS SUMMARY | 2025-05-24 14:48 | XMS_ITS | Encounter Summary ---
Author Organization [facility] Address [address] [place] [address] Phone Care Team Providers Care Scientific Photographer Name Role Phone Shravan Padilla Primary Care Provider [phone] Heidy Brandon MD Unavailable [phone] Reason for Visit * Reason Comments Medication Refill Encounter Details Date Type Department Care Team (Late st Contact Info) Description 01/31/2022 Refill [facility] - Gastroenterology - [place] [address] [place] [address] Alyssa Ulloa Jessica, PAC [address] [place] [address] Medication Refill Social History Tobacco Use Types [...] documented as of this encounter Care Teams Scientific Photographer Relationship Specialty Start Date End Date Shravan Padilla [facility] [address] [place] [address] PCP - General Physician Fire Investigation Lieutenant 10/30/17 Heidy Brandon MD [address] [place] [address] Consulting Physician Gastroenterology 05/22/22 documented as of this encounter
--- OUTSIDE RECORDS SUMMARY | 2025-05-24 14:48 | XMS_ITS | Encounter Summary ---
Author Organization [facility] Address [address] [place] [address] Phone Care Team Providers Care Waste Collection Driver Name Role Phone Shravan Padilla Primary Care Provider Heidy Brandon MD Unavailable [phone] Reason for Referral * Radiology Services (Routine) - Closed Specialty Diagnoses / Procedures Referred By Rea t Referred To Contact Radiology Diagnoses Encounter for screening mammogram for breast cancer Procedures ROBERT SCREENING BILATERAL DIGITAL W CAD W RADHA Shravan Padilla PAC [address] [place] [address] Phone: tel: fax: Referral ID Status Reason Start Date Expiration Date Visits Re quested Visits Authorized [id number] Closed 07/20/2024 1 1 L SORTER Encounter Details Date Type Department Care Team (Late st Contact Info) Description 07/20/2024 Transcribe Orders [facility] Central Scheduling [address] [place] [id number] Shravan Padilla PAC [address] [place] [address] Encounter for screening mammogram for [...] W CAD W RADHA (08/11/2024 9:44 AM METAL SORTER) Anatomical Region Laterality Modality breast Bilateral Mammography 08/11/2024 9:31 AM METAL SORTER Narrative 08/12/2024 9:11 AM METAL SORTER - ROBERT SCREENING BILATERAL DIGITAL W CAD [...] to exams dated: 12/28/2020, 07/23/2022, and 08/03/2023 [facility]. BREAST TISSUE:There are scattered areas of fibroglandular [...] exam. Electronically signed by: Reji mike/jacki:08/11/2024 15:56:02 Parts Advisor(s): RT Maye(R)(M), [facility] letter sent: Normal Exam Reading location: [facility] [...] to exams dated: 12/28/2020, 07/23[facility]2022[facility] BREAST TISSUE:There are scattered areas of [...] exam. Electronically signed by: Reji mike/jacki:08/11/2024 15:56:02 Parts Advisor(s): RT Maye(R)(M), [facility] letter sent: Normal Exam Reading location: [facility] Mammogram BI-RADS: Category 2: Benign us Shravan HADLEY IMG MAMMO ORDERABLES Final Re sult documented in this encounter Visit Diagnoses Diagnosis Encounter for screening mammogram for breast cancer- Primary Encounter for screening mammogram for breast cancer documented in this encounter Care Teams Waste Collection Driver Relationship Specialty Start Date End Date Shravan Padilla PAC [address] [place] [address] PCP - General Physician Manager Sign 10/30/17 Heidy Brandon MD [address] [place] [address] Consulting Physician Gastroenterology 05/22/22 documented as of this encounter
--- OUTSIDE RECORDS SUMMARY | 2025-05-24 14:48 | XMS_ITS | Encounter Summary ---
Author Organization [facility] Address [address] [place] [address] Phone Care Team Providers Care Miller Helper Distillery Name Role Phone Shravan Hernandez MD Primary Care Provider [phone] Shravan Padilla Primary Care Provider [phone] Rafat Carmichael MD Unavailable [phone] Encounter Details Date Type Department Care Team (Late st Contact Info) Description 09/07/2017 Orders Only [facility] ProviderBon MD [facility] [place] [address] Social History Tobacco Use Types Packs/Day Years Used Date Smoking Tobacco: Former Smokeless Tobacco: Never Comments:Smoking History Pac ks/day: 0.4 Packs Alcohol Use Standard Drinks/Week Comments Yes 0 (1 standard drink = 0.6 oz pur e alcohol) Comments Unknown Sex and Gender Information Value Date Recorded Sex Assigned at Not on file Legal Sex Female 2:01 PM INSURANCE RISK ANALYST Gender Identity Not on file Sexual Orientation [...] documented as of this encounter Care Teams Miller Helper Distillery Relationship Specialty Start Date End Date Shravan Hernandez MD PCP - General 12/11/14 10/20/21 Shravan Padilla PA [address] [place] [address] PCP - General 10/21/21 Rafat Carmichael MD [address] [place] [address] Referring Physician Dermatology 04/19/24 documented as of this encounter
--- OUTSIDE RECORDS SUMMARY | 2025-05-24 14:48 | XMS_ITS | Clinical Summary ---
Author Organization [facility] Address [address] [facility] [address] [place] [address] Phone Care Team Providers Care Senior Economist Name Role Phone Shravan Padilla Primary Care Provider [phone] Heidy Brandon MD Unavailable [phone] Allergies No known active allergies Medications [...] 102.5 kg (226 lb) 05/22/2022 8:38 AM MACHINE TENDER Height 172.7 cm (5' 8) 05/22/2022 8:38 AM MACHINE TENDER Body Mass Index 34.36 05/22/2022 8:38 AM MACHINE TENDER Plan of Treatment Health Maintenance Due Date [...] CAD W RADHA Routine 08/11/2024 9:44 AM MACHINE TENDER Encounter for screening mammogram for breast cancer HEPATITIS PANEL ACUTE (AHP) Routine 02/23/2018 10:57 AM CDT Encounter for hepatitis C screening test for low risk patient HM COLONOSCOPY Routine 09/16/2017 from Last 3 Months or Most Recently Relevant to Health Maintenance Results * ROBERT SCREENING BILATERAL DIGITAL W CAD W RADHA (08/11/2024 9:44 AM MACHINE TENDER) Anatomical Region Laterality Modality breast Bilateral Mammography 08/11/2024 9:31 AM MACHINE TENDER Narrative 08/12/2024 9:11 AM MACHINE TENDER - ROBERT SCREENING BILATERAL DIGITAL W CAD [...] to exams dated: 12/28/2020, 07/23/2022, and 08/03/2023 [facility]. BREAST TISSUE:There are scattered areas [...] exam. Electronically signed by: Reji [email or web address]:08/11/2024 15:56:02 Cellular Biologist(s): RT Maye(R)(M), [facility] letter sent: Normal Exam Reading [...] to exams dated: 12/28/2020, 07/23/2022, and 08/03/2023 [facility]. BREAST TISSUE:There are scattered areas [...] exam. Electronically signed by: Reji [email or web address]:08/11/2024 15:56:02 Cellular Biologist(s): RT Maye(R)(M), [facility] letter sent: Normal Exam Reading location: [facility] Mammogram BI-RADS: Category 2: Benign us [facility] Final Re sult * HEPATITIS PANEL ACUTE (AHP) (02/23/2018 10:57 AM CDT) HEPATITIS A IGM ANTIBODY NON DETECTED NON DETECTED 02/24/2018 1:19 AM CDT [facility] Comment: IGM Antibodies to HAV not detected. Does not exclude early acute or recovered HAV infection. HEP B CORE AB (IGM) NON DETECTED NON DETECTED 02/24/2018 1:19 AM T [facility] Comment: IGM anti-HBC not detected. Does not exclude the possibility of exposure to or infection with HBV. HEPATITIS B SURFACE ANTIGEN NON DETECTED NON DETECTED 02/24/2018 1:19 AM [facility] Comment: A nonreactive test result [...] antibody 0.11 <1 S/CO 02/24/2018 1:19 AM [facility] Comment: Signal/Cutoff ratio < 0.79 is Nondetected Signal/Cutoff ratio 0.80-0.99 is Grayzone Signal/Cutoff ratio > 0.99 is Detected Supplemental assays are recommended if signal/cutoff ratio is >/=1.00. Signal/cutoff ratio result >/= 5.00 is 97% predictive of positivity for recombinant immunoblot assay (RIBA) and will be reported to the [place] [facility] as required. Blood specimen (specimen) Venipuncture / Unknown 02/23/2018 10:57 AM CDT 02/23/2018 11:42 AM CDT us Paula Hernandez APPLICATION SUPPORT MANAGER, HEAD OF SALES HEMATOLOGY ORDERA BLES Final Result [facility] [address] [place] [address], * COLONOSCOPY (09/16/2017) us Juliano Minor MD PROCEDURE/MINOR SURGICAL O RDERABLES Final Result from Last 3 Months or Most Recently Relevant to Health Maintenance Insurance MEDICAID [place] Care Teams Senior Economist Relationship Specialty Start Date End Date Shravan Padilla PAC [address] [place] [id number] PCP - General Physician Government Affairs Manager 10/30/17 Heidy Brandon MD [address] [place] [address] Consulting Physician Gastroenterology 05/22/22
== END 2025-05-24 14:36 | disposition home or self-care (01) ==
PROVIDERS: Emergency Provider Emergency Medicine; PCP Physician Assistant
DX: M10.9 Gout, unspecified (principal); Z79.899 Other long term (current) drug therapy; Z79.891 Long term (current) use of opiate analgesic
CPT/HCPCS: 73110; 96372; 99283; J1885